=== PATIENT | male | born 1990 | race Caucasian/White ===

== ENCOUNTER 2017-10-10 09:31 | Emergency (ER) | payer OTHER, SELFPAY ==
[2017-10-10 09:32] VITALS: BP 111/71; PULSE 88; RESP 18; TEMP 37; O2SAT 98; BMI 32.1
--- NOTE | 2017-10-10 09:52 | CT_ITS ---
STUDY: CT ABDOMEN AND PELVIS WITHOUT CONTRAST REASON FOR EXAM: Male, 27 years old. Left flank pain. History of renal calculi. RADIATION DOSAGE (If Supplied By Facility): CTDIvol = ( 14.83 ) mGy, DLP = ( 803.98 ) mGycm TECHNIQUE: Transaxial images were obtained from the dome of the diaphragm to the symphysis pubis without oral contrast, and without intravenous contrast. Sagittal and coronal images were reconstructed. Individualized dose optimization techniques were used for this CT. COMPARISON: Comparison is made with prior study dated June 05, 2013. FINDINGS: The visualized lung bases are unremarkable. The visualized portions of the heart are within normal limits. Normal liver. Normal gallbladder and extrahepatic biliary system. Normal spleen. Normal pancreas. Normal bilateral adrenal glands. There is a 2 mm nonobstructive calculus in the upper pole of the right kidney. Punctate calcifications in the mid to lower pole of the right kidney. Punctate calcification in the upper pole calyx of the left kidney. There is no evidence of hydronephrosis. Normal visualized stomach. Normal small intestine. There are scattered colonic diverticula consistent with diverticulosis. The appendix is visualized and appears normal. Normal abdominal aorta. Normal inferior vena cava. Normal retroperitoneum. Normal urinary bladder. Stable small bilateral benign-appearing inguinal lymph nodes. Normal abdominal wall. Normal osseous structures. CT/Abdomen/Pelvis without Cont IMPRESSION: Bilateral small nonobstructive intrarenal calculi. Electronically Signed: Parminder Mejia MD at 10:33 EST Tel [phone], Service support ,
[2017-10-10] MEDS: Ondansetron 4 MG/2 ML Vial IV (10:07)
[2017-10-10] MEDS: Ketorolac 30 MG/ML Syringe IV (10:07)
[2017-10-10] MEDS: 0.9% Normal Saline 1,000 ML 999 ML IV (10:07)
[2017-10-10 10:12] LABS: Mucous, Urine 0 SEEN /hpf (<or=2+); White Blood Cells 0 SEEN /hpf (0-5)
--- NOTE | 2017-10-10 10:13 | ED.DCSUM_ITS ---
- ER Visit Summary Date of Service: 10/10/17 Chief Complaint: Left flank pain History of Present Illness: The patient is a 27 M 3 prior kidney stones and prior heroin abuse. Patient states he has been sober for 2 years. He started having left flank pain sudden onset around 3 AM this morning. He did urinate and noticed a small stone in the past. He is still having pain. Also associated nausea and vomiting. No fever. This is very similar to his prior kidney stone presentations. Physical Examination: Young male complaining of flank pain. Vital signs are stable afebrile. He does not look septic or toxic. H EENT exam is normal. Neck is nontender. Lungs are clear to auscultation bilaterally. Heart is regular rate and rhythm no murmur. Abdomen is soft and nontender. Normal bowel sounds no peritoneal signs. He is moving all 4 extremities. They are neurovascularly intact. Back exam is nontender. No CVA tenderness. Test Results: The flank without contrast shows bilateral renal stones but no acute ureteral calculi. No obstruction. I reviewed the film it was read by the radiologist. UA shows a small amount of blood but no signs of infection. When the patient did urinate a small stone was passed with the urine. Emergency Department Course and Treatment: Acute left flank pain with a history of kidney stones. Patient be treated with IV Toradol, IV fluids and Zofran. Because of his prior history of heroin abuse I am going to try to not use any type of narcotic. The patient I have already discussed that. Treatment Plan: Repeat exam he is doing much better at 1140. He will be discharged to home. Toradol for pain. Disposition: discharge Impression: Acute left flank pain secondary to acute left kidney stone now passed This note was generated with [employer] dictation software. It may contain incorrect words, spelling, and punctuation that were not noted in review of the chart prior to signing ED Disposition - Plan for ED Patient: Disposition: Home or Assisted Living Chief Complaint: Flank Pain Instructions: ED Stone Renal Passed Prescriptions: Ketorolac [Toradol] 10 mg PO Q4H #10 tab Referrals: Remington Coleman MD [Primary Care Provider] - As Needed Additional Instructions: Toradol or Motrin for pain. Do not use both. Fluids and rest. The ER if intractable pain, intractable vomiting or feeling worse.
[2017-10-10 10:18] LABS: Color, Urine Yellow (Yellow); Glucose, Dipstick Normal (Normal); Ketone-Dipstick Negative (Negative); Leukocyte Esterase-Dipstick 25 /ul (Negative); Nitrite-Dipstick Negative (Negative); Occult Blood-Urine 150 /ul (Negative); Protein-Dipstick Negative (Negative); Specific Gravity, Urine 1.015 (1.002-1.030); Urine Bilirubin Dipstick Negative (Negative); Urine Clarity Clear (Clear); Urine Urobilinogen 1 mg/dl (Normal)
[2017-10-10 10:31] LABS: Red Blood Cells-Urine 5-10 SEEN /hpf (0-5); Squamous Epithelial Cells - UA 0-5 SEEN /hpf (0-5)
[2017-10-10 10:33] LABS: Bacteria RARE /hpf (None Seen)
--- NOTE | 2017-10-10 11:46 | ED.DEP ---
ED Disposition - Plan for ED Patient: Disposition: Home or Assisted Living Chief Complaint: Flank Pain Instructions: ED Stone Renal Passed Prescriptions: Ketorolac [Toradol] 10 mg PO Q4H #10 tab Referrals: Remington Coleman MD [Primary Care Provider] - As Needed Additional Instructions: Toradol or Motrin for pain. Do not use both. Fluids and rest. The ER if intractable pain, intractable vomiting or feeling worse.
== END 2017-10-10 11:59 | disposition home or self-care (01) ==
PROVIDERS: Emergency Provider Emergency Medicine; Family Provider Family Medicine; PCP Family Medicine
DX: N20.0 Calculus of kidney (principal); R10.9 Unspecified abdominal pain; Z87.442 Personal history of urinary calculi; F11.11 Opioid abuse, in remission; Z72.0 Tobacco use
CPT/HCPCS: 74176; 81001; 96361; 96374; 96375; 99284; J7030; A4216; J2405

== ENCOUNTER 2017-11-05 02:46 | Emergency (ER) | payer OTHER, SELFPAY ==
[2017-11-05 02:47] VITALS: BP 136/69; PULSE 88; RESP 16; TEMP 36.8; O2SAT 96; BMI 31.8
[2017-11-05] MEDS: Ketorolac 30 MG/ML Syringe IV (03:23)
[2017-11-05] MEDS: Ondansetron 4 MG/2 ML Vial IV (03:23)
--- NOTE | 2017-11-05 04:24 | ED.DCSUM_ITS ---
- ER Visit Summary Date of Service: 11/05/17 Chief Complaint: Facial swelling History of Present Illness: The patient is a [address] Brink [facility]. He reports that he has swelling to the left side of his face that began months ago. It increased today after he scores the area and felt a crunch. Complains of a throbbing pain is 10 out of 10 severity. Is worsened by eating. It is unrelieved by ibuprofen. Patient reports that he finished penicillin 12 days ago. He began Keflex 4 days ago. This does not seem to be helping. He has had subjective fever and chills. Physical Examination: Vitals: Stable. Afebrile. Mouth: No trismus. No edema of the floor of the mouth. Widespread dental decay. No pain with percussion of his teeth. The soft tissue swelling is really more in the area of the parotid duct. I am unable to express any saliva from Stensen's duct. General: A&O x 3. NAD. Cardiovascular exam: Regular rate and rhythm, no murmur, rub or gallop. Respiratory exam: Clear to auscultation bilaterally. No wheezes or stridor. Abdominal exam: Soft, nontender, nondistended, normal bowel sounds. No peritoneal signs. Extremity: No clubbing, cyanosis, or edema. Emergency Department Course and Treatment: Patient had an IV placed. Is given dose of clindamycin and morphine IV. I had a prolonged discussion about this and that I do not think that attempting to drain this is in his best interest. I suspect that it is more of a parotid duct stone than an abscess. Treatment Plan: Patient will be discharged instructions to take the clindamycin he was previously prescribed. 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 Instructed to use Tylenol and ibuprofen for pain. Use lemon drops to help with possible obstruction of his parotid duct. Follow-up Dr. Haney in 3-5 days if not improving. Return to the emergency department for any worsening symptoms. Disposition: To home in improved and stable condition. Impression: 1. Parotitis on the left. This note was generated with [employer] software. It may contain incorrect words, spelling, and punctuation that were not noted in review of the chart prior to signing ED Disposition - Plan for ED Patient: Disposition: Home or Assisted Living Chief Complaint: Dental Instructions: ED Sublingual Gland Obstruction Referrals: Remington Haney MD [STAFF PHYSICIAN] - 3-5 Days if not improving
[2017-11-05 04:39] VITALS: BP 129/67; PULSE 81; RESP 16; O2SAT 97
== END 2017-11-05 04:42 | disposition home or self-care (01) ==
PROVIDERS: Emergency Provider Emergency Medicine; Family Provider Family Medicine; PCP Family Medicine
DX: K11.20 Sialoadenitis, unspecified (principal); K02.9 Dental caries, unspecified; Z72.0 Tobacco use
CPT/HCPCS: 96365; 96375; 99283; J7030; A4216; J2405

== ENCOUNTER → 2017-11-11 14:17 | Outpatient (CLI) | payer OTHER, SELFPAY ==
[2017-11-11 15:36] LABS: Absolute Lymphocyte Count 2.63 X10^3/ul (0.83-4.51); Basophil# 0.02 X10^3/uL; Basophil% 0.2 % (0-1); Eosinophil# 0.17 X10^3/uL; Eosinophils% 1.7 % (0-5); Hematocrit 48.2 % (40-54); Hemoglobin 16.7 g/dl (13.0-16.5); Lymphocyte # 2.63 X10^3/ul (4.0); Mean Corp Hgb Conc 34.6 g/gl (32-36); Mean Corpuscular Hgb 30.8 pg (27.0-32.0); Mean Corpuscular Volume 88.8 fL (80-94); Mean Platelet Vol. 11.9 fl (6.2-12.0); Monocyte% 9.2 % (0-10); Neutrophil % 61.7 % (47-70); Platelet Count 216 K/mm3 (150-450); RBC Distribution Width CV 12.4 % (11.6-14.6); RBC Distribution Width SD 40.6 fl (35.1-43.9); Red Blood Count 5.43 M/mm3 (4.6-6.2); White Blood Count 9.7 K/mm3 (4.4-11.0)
[2017-11-11 15:43] LABS: POSITIVE COUNT NO; POSITIVE DIFFERENTIAL NO; POSITIVE MORPHOLOGY NO
[2017-11-11 15:58] LABS: ALB/GLOB Ratio 1.1 RATIO (0.9-2.4); AST(SGOT) 82 U/L (15-37); Alanine Aminotransfer ALT/SGPT 186 U/L (16-61); Albumin, Serum 4.4 g/dL (3.2-5.0); Alkaline Phosphatase 104 U/L (45-117); Amylase 31 U/L (25-115); Anion Gap 9 (5-15); BUN 12 mg/dL (7-18); BUN/Creat Ratio 14.3 RATIO (10-20); CRP < 2.90 mg/L (0.0-3.0); Calcium,Total 9.1 mg/dL (8.5-10.1); Chloride 102 mmol/L (98-107); Creatinine, Serum 0.84 mg/dL (0.70-1.30); EST Glomerular Filtration Rate 117 mL/min (>60); Est Glom Filt Rate - Afr Amer 141 mL/min (>60); Glucose 79 mg/dL (74-106); Lipase 86 U/L (73-393); Potassium 3.5 mmol/L (3.5-5.1); Protein, Total 8.4 g/dL (6.4-8.2); Sodium Level 137 mmol/L (136-145)
[2017-11-11 16:39] LABS: Erythrocyte Sedimentation Rate 17 mm/hr (0-15)
== END ==
PROVIDERS: Family Provider Family Medicine; PCP Family Medicine; Visit Provider Family Medicine
DX: R11.2 Nausea with vomiting, unspecified (principal)
CPT/HCPCS: 36415; 80053; 82150; 83690; 85025; 85652; 86140

== ENCOUNTER → 2018-02-23 14:25 | Outpatient (CLI) | payer OTHER, SELFPAY ==
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
== END ==
PROVIDERS: Family Provider Family Medicine; PCP Family Medicine; Visit Provider Family Medicine
DX: M79.671 Pain in right foot (principal)
CPT/HCPCS: 73630

== ENCOUNTER 2018-05-21 19:50 | Emergency (ER) | payer OTHER, SELFPAY ==
[2018-05-21 19:51] VITALS: BP 114/68; PULSE 108; RESP 20; TEMP 36.7; O2SAT 96; BMI 29.2
--- NOTE | 2018-05-21 20:20 | EKG12_ITS ---
Test Reason : Blood Pressure : / mmHG Vent. Rate : 089 BPM Atrial Rate : 089 BPM P-R Int : 138 ms QRS Dur : 076 ms QT Int : 348 ms P-R-T Axes : 058 -04 034 degrees QTc Int : 423 ms Normal sinus rhythm Possible Left atrial enlargement Borderline ECG Confirmed by BERTO CUMMINS, KAMRAN ([id number]), editor news MARI DIA ([id number]) on 05/27/2018 9:18:48 AM Referred By: ZACK Confirmed By:KAMRAN THOMSON MD
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
[2018-05-21 20:48] LABS: Absolute Lymphocyte Count 1.42 X10^3/ul (0.83-4.51); Absolute Neutrophil Count 5.5 X10^3/uL (2.0-7.7); Basophil# 0.02 X10^3/uL; Basophil% 0.3 % (0-1); Eosinophils% 1.3 % (0-5); Hematocrit 44.3 % (40-54); Hemoglobin 15.2 g/dl (13.0-16.5); Lymphocyte # 1.42 X10^3/ul (4.0); Lymphocyte % 18.9 % (19-41); Mean Corp Hgb Conc 34.3 g/gl (32-36); Mean Corpuscular Hgb 30.5 pg (27.0-32.0); Mean Corpuscular Volume 88.8 fL (80-94); Mean Platelet Vol. 10.9 fl (6.2-12.0); Monocyte% 6.6 % (0-10); Neutrophil # 5.47 X10^3/uL (2.7-7.7); Neutrophil % 72.8 % (47-70); Platelet Count 217 K/mm3 (150-450); RBC Distribution Width CV 12.5 % (11.6-14.6); RBC Distribution Width SD 39.9 fl (35.1-43.9); Red Blood Count 4.99 M/mm3 (4.6-6.2); White Blood Count 7.5 K/mm3 (4.4-11.0)
[2018-05-21 20:49] LABS: POSITIVE COUNT NO; POSITIVE DIFFERENTIAL NO; POSITIVE MORPHOLOGY NO
[2018-05-21 21:10] LABS: Anion Gap 9 (5-15); BUN 6 mg/dL (7-18); BUN/Creat Ratio 6.9 RATIO (10-20); Calcium,Total 9.1 mg/dL (8.5-10.1); Chloride 108 mmol/L (98-107); Creatinine, Serum 0.87 mg/dL (0.70-1.30); EST Glomerular Filtration Rate 113 mL/min (>60); Est Glom Filt Rate - Afr Amer 136 mL/min (>60); Estimated Creatinine Clearance 124.48 ml/min; Glucose 104 mg/dL (74-106); Potassium 3.9 mmol/L (3.5-5.1); Sodium Level 140 mmol/L (136-145)
[2018-05-21 21:25] VITALS: BP 111/90; PULSE 80; RESP 21; O2SAT 98
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
[2018-05-21 22:21] VITALS: BP 117/63; PULSE 83; RESP 16; O2SAT 99
== END 2018-05-21 22:21 | disposition home or self-care (01) ==
PROVIDERS: Emergency Provider Emergency Medicine; Family Provider Family Medicine; PCP Family Medicine
DX: S20.219A Contusion of unspecified front wall of thorax, initial encounter (principal); Z72.0 Tobacco use; V43.52XA Car driver injured in collision with other type car in traffic accident, initial encounter; Y93.I9 Activity, other involving external motion; Y92.410 Unspecified street and highway as the place of occurrence of the external cause; Y99.9 Unspecified external cause status
CPT/HCPCS: 71260; 74177; 80048; 84484; 85025; 93005; 99283; Q9967; A4216

== ENCOUNTER → 2018-06-18 16:01 | Outpatient (CLI) | payer OTHER, SELFPAY ==
[2018-06-18 17:38] LABS: Absolute Lymphocyte Count 1.66 X10^3/ul (0.83-4.51); Absolute Neutrophil Count 4.7 X10^3/uL (2.0-7.7); Basophil# 0.02 X10^3/uL; Basophil% 0.3 % (0-1); Eosinophil# 0.18 X10^3/uL; Eosinophils% 2.5 % (0-5); Hematocrit 44.4 % (40-54); Lymphocyte # 1.66 X10^3/ul (4.0); Lymphocyte % 23.1 % (19-41); Mean Corp Hgb Conc 33.8 g/gl (32-36); Mean Corpuscular Hgb 30.5 pg (27.0-32.0); Mean Corpuscular Volume 90.4 fL (80-94); Mean Platelet Vol. 12.3 fl (6.2-12.0); Monocyte# 0.63 X10^3/uL; Monocyte% 8.8 % (0-10); Neutrophil # 4.69 X10^3/uL (2.7-7.7); Neutrophil % 65.2 % (47-70); Platelet Count 202 K/mm3 (150-450); RBC Distribution Width CV 12.4 % (11.6-14.6); RBC Distribution Width SD 40.4 fl (35.1-43.9); Red Blood Count 4.91 M/mm3 (4.6-6.2); White Blood Count 7.2 K/mm3 (4.4-11.0)
[2018-06-18 17:43] LABS: POSITIVE COUNT NO; POSITIVE DIFFERENTIAL NO; POSITIVE MORPHOLOGY NO
[2018-06-18 18:08] LABS: ALB/GLOB Ratio 0.9 RATIO (0.9-2.4); AST(SGOT) 68 U/L (15-37); Alanine Aminotransfer ALT/SGPT 150 U/L (16-61); Albumin, Serum 3.8 g/dL (3.2-5.0); Alkaline Phosphatase 88 U/L (45-117); Anion Gap 6 (5-15); BUN 6 mg/dL (7-18); BUN/Creat Ratio 6.9 RATIO (10-20); Calcium,Total 9.1 mg/dL (8.5-10.1); Chloride 106 mmol/L (98-107); Creatinine, Serum 0.87 mg/dL (0.70-1.30); EST Glomerular Filtration Rate 112 mL/min (>60); Est Glom Filt Rate - Afr Amer 136 mL/min (>60); Globulin 4.2 g/dL (2.2-4.2); Glucose 95 mg/dL (74-106); Potassium 3.6 mmol/L (3.5-5.1); Sodium Level 138 mmol/L (136-145)
[2018-06-22 20:07] LABS: HCV Quant. RNA PCR 69000 IU/mL (.)
[2018-06-23 14:51] LABS: HCV log 10 4.839 (.)
== END ==
PROVIDERS: Family Provider Family Medicine; PCP Family Medicine; Visit Provider Family Medicine
DX: K52.9 Noninfective gastroenteritis and colitis, unspecified (principal)
CPT/HCPCS: 36415; 80053; 85025; 87522

== ENCOUNTER 2018-07-12 20:10 | Inpatient (IN) | payer OTHER, SELFPAY ==
[2018-07-12 20:11] VITALS: BP 112/74; PULSE 91; RESP 16; TEMP 36.3; O2SAT 96; BMI 27.1
--- NOTE | 2018-07-12 21:00 | ED.VISSUMM ---
- ER Visit Summary Date of Service: 07/12/18 Chief Complaint: Wants detox History of Present Illness: The patient is a 27 M presenting stating that he wants detox. He uses fentanyl and heroin IV. He uses 1/2-1 g/day. His last detox was in 2014. He states he was sober for 2-1/2 years. He relapsed in May 2018. He denies alcohol use. He smokes cigarettes. He has a history of hep C. He has had nausea vomiting. Last use was 5 hours ago. Physical Examination: Vitals are stable. Patient is afebrile. Alert no acute distress. HEENT exam is unremarkable. Neck is supple. Lungs are clear and equal bilaterally. Heart is regular rate and rhythm. Abdomen is soft nontender nondistended. Extremities are unremarkable. Skin is warm and dry. No focal neurologic deficit. Remainder of exam is unremarkable. Emergency Department Course and Treatment: CINA score is 13. CBC shows white count 11.6. Chemistries unremarkable. ALT 119. AST 56. Lipase 57. INR 1.0. Urine is contaminated with 5-10 epithelial cells. Tox screen shows opiates, amphetamine, cocaine. Alcohol is negative. Discussed with the hospitalist for admission. Disposition: Admission Impression: Opiate dependence This note was generated with [employer] dictation software. It may contain incorrect words, spelling, and punctuation that were not noted in review of the chart prior to signing ED Disposition - Plan for ED Patient: Chief Complaint: Substance Abuse Referrals: Remington Coleman MD [Primary Care Provider] -
[2018-07-12 21:36] LABS: Basophil# 0.04 X10^3/uL; Basophil% 0.3 % (0-1); Eosinophils% 1.7 % (0-5); Hematocrit 46.1 % (40-54); Hemoglobin 15.4 g/dl (13.0-16.5); Lymphocyte % 14.6 % (19-41); Mean Corp Hgb Conc 33.4 g/gl (32-36); Mean Corpuscular Hgb 30.5 pg (27.0-32.0); Mean Corpuscular Volume 91.3 fL (80-94); Mean Platelet Vol. 11.7 fl (6.2-12.0); Monocyte# 0.63 X10^3/uL; Monocyte% 5.4 % (0-10); Neutrophil # 9.03 X10^3/uL (2.7-7.7); Neutrophil % 77.8 % (47-70); POSITIVE COUNT NO; POSITIVE DIFFERENTIAL NO; POSITIVE MORPHOLOGY NO; Platelet Count 224 K/mm3 (150-450); RBC Distribution Width CV 12.6 % (11.6-14.6); RBC Distribution Width SD 41.4 fl (35.1-43.9); Red Blood Count 5.05 M/mm3 (4.6-6.2); White Blood Count 11.6 K/mm3 (4.4-11.0)
[2018-07-12 21:41] LABS: Prothrombin Time (Protime)PT. 13.1 SECONDS (11.7-14.9)
[2018-07-12 21:48] LABS: Color, Urine Yellow (Yellow); Glucose, Dipstick Normal (Normal); Ketone-Dipstick Negative (Negative); Leukocyte Esterase-Dipstick 25 /ul (Negative); Nitrite-Dipstick Negative (Negative); Occult Blood-Urine Negative /ul (Negative); Protein-Dipstick 15 mg/dl (Negative); Urine Bilirubin Dipstick Negative (Negative); Urine Clarity Clear (Clear); Urine Urobilinogen 1 mg/dl (Normal)
[2018-07-12 21:51] LABS: AST(SGOT) 56 U/L (15-37); Alanine Aminotransfer ALT/SGPT 119 U/L (16-61); Albumin, Serum 3.8 g/dL (3.2-5.0); Alkaline Phosphatase 84 U/L (45-117); Anion Gap 6 (5-15); BUN 11 mg/dL (7-18); Bacteria 1+ /hpf (None Seen); Calcium,Total 8.8 mg/dL (8.5-10.1); Chloride 104 mmol/L (98-107); Creatinine, Serum 0.79 mg/dL (0.70-1.30); EST Glomerular Filtration Rate 126 mL/min (>60); Est Glom Filt Rate - Afr Amer 152 mL/min (>60); Estimated Creatinine Clearance 132.48 ml/min; Glucose 112 mg/dL (74-106); Lipase 57 U/L (73-393); Mucous, Urine 2+ /hpf (<or=2+); Potassium 3.9 mmol/L (3.5-5.1); Protein, Total 7.8 g/dL (6.4-8.2); Red Blood Cells-Urine 0-5 SEEN /hpf (0-5); Sodium Level 138 mmol/L (136-145); Squamous Epithelial Cells - UA 5-10 SEEN /hpf (0-5); White Blood Cells 5-10 SEEN /hpf (0-5)
[2018-07-12 21:53] LABS: Amphetamine Urine VISTA POSITIVE (<1000 ng/mL); Barbiturate Urine VISTA NEGATIVE (< 200 ng/mL); Benzodiazepine Urine VISTA NEGATIVE (< 200 ng/mL); Cocaine Urine VISTA POSITIVE (< 300 ng/mL); Ecstacy Urine VISTA NEGATIVE (< 500 ng/mL); Methadone Urine VISTA NEGATIVE (< 300 ng/mL); PCP Urine VISTA NEGATIVE (< 25 ng/mL); THC Urine VISTA NEGATIVE (< 50 ng/mL); Vista UDS pH Range 5
[2018-07-12 22:04] LABS: Alcohol, Blood (Medical)-Serum < 3.0 mg/dL
--- NOTE | 2018-07-12 22:04 | HP.PCM_ITS ---
Problem List (1) Opioid withdrawal delirium, acute, hyperactive Status: Acute (2) Cocaine abuse Status: Acute (3) Nicotine dependence Status: Acute (4) Benzodiazepine use Status: Acute History of Present Illness Date of Admission: 07/12/18 Chief Complaint: Polysubstance use and withdrawal The patient is a 27 year old M with history of polysubstance use and dependence including IV heroin, fentanyl, he snorts cocaine, smokes cigarette and occasional Xanax came to ER for withdrawal symptoms related to opioids. Patient having mild tremors, skin flush, sensation of crawling under her skin, abdominal cramps, anxiety and restlessness. Patient had left antecubital abscess I and D done in 2012. Patient claims that it was done by Dr. Schmitz. Patient had multiple ER visits and also had right antecubital abscess for which she was seen in ER April 2014. He denies history of severe sepsis, septic shock or infective endocarditis. He usually has half to 1 g IV heroin and mixed with his fentanyl, last use was 5 hours ago. JAE a score in ER 11. Opioid use is started at the age of 15 with oxycodone which progressed to IV heroin use at the age of 18. He was sober for 2 and half years and then relapsed in May 2018. He also uses a speedball. He snorts cocaine, last used today. He also uses Xanax 1-2 tablets of 1 mg occasionally, last use was about 5-6 days ago. He consistently smokes cigarettes 1-1-1/2 pack daily since age of 13. [] Past Medical History Past Medical History (Chronic Problems): Chronic Problems Polysubstance abuse (Chronic) Allergies No Known Allergies Allergy (Verified 07/12/18 20:13) Home Medications: Ambulatory Orders Medication Instructions Recorded NK 07/12/18 Surgical History: T+A Smoking Status: Current every day smoker Review of Systems Constitutional: Denies: Chills, Fever, Weight Change Eyes: Denies: Blurred vision, Double vision HEENT: Denies: Head Aches, Sinus Congestion, Sinus Drainage Cardiovascular: Denies: Chest Pain, Palpitations Respiratory: Denies: Cough, Shortness of breath at rest, Sputum production Gastrointestinal: Reports: Abdominal Pain, Nausea. Denies: Vomiting Genitourinary: Denies: Dysuria, Frequency, Hematuria, Hesitancy, Incontinence, Nocturia, Retention, Urgency Musculoskeletal: Denies: Joint Pain, Joint Tenderness Skin: Denies: Rash, Wounds Neurological: Denies: Numbness, Tingling, Focal weakness Psychiatric: Reports: Anxiety, Depression. Denies: Homicidal Ideations, Suici dc Ideations Hematologic/ Lymphatic: Denies: Easy Bruising, Easy Bleeding VTE Information - Inpt Only VTE Present on Admission: No VTE Mechan Device Prophylaxis: None VTE Pharm Prophylaxis ordered?: No Reason prophylaxis not ordered:: Procedure Not Indicated - Low risk Patient Problems: Active and Suspected Problems Opioid withdrawal delirium, acute, hyperactive (Acute) Cocaine abuse (Acute) Nicotine dependence (Acute) Benzodiazepine use (Acute) - Physical Exam General: Alert, Oriented x3, Cooperative HEENT: Atraumatic, PERRLA, EOMI, Normocephalic Neck: Supple, No JVD, Negative Carotid Bruits Lungs: Clear to auscultation, Normal air movement Cardiovascular: Regular rate, Regular Rhythm, Normal S1, Normal S2, No murmurs Abdomen: Bowel Sounds Present, Soft, Non Tender, Non-Distended Extremities: No edema, Capillary Refill Less than 3 Seconds, - - Scar eric of left antecubital region of previous incision and drainage Skin: No rashes, No breakdown, - - A skin track house present in both upper extremities Musculoskeletal: No Tenderness to Palpation of Joints or Extremities Neurological: Cranial nerves II-XII grossly intact, Deep Tendon Reflexes 2+/4 and Symmetrical, Neuro grossly intact, Motor Exam 5/5 strength throughout Psych/Mental Status: Anxious, Restless Vital Signs Temp Pulse Resp BP Pulse Ox 97.4 F L 91 16 112/74 96 07/12/18 20:11 07/12/18 20:11 07/12/18 20:11 07/12/18 20:11 07/12/18 20:11 Oxygen Delivery Method Room Air Weight: 172 lb 13.478 oz Body Mass Index (BMI) 27.1 Laboratory Tests Past 24 Hrs 07/12/18 07/12/18 07/12/18 21:25 21:25 21:25 WBC 11.6 H RBC 5.05 Hgb 15.4 Hct 46.1 MCV 91.3 MCH 30.5 MCHC 33.4 RDW 12.6 RDW Differential 41.4 Plt Count 224 MPV 11.7 Immature Gran % (Auto) 0.200 Neut % (Auto) 77.8 H Lymph % (Auto) 14.6 L [place] % (Auto) 5.4 Eos % (Auto) 1.7 Baso % (Auto) 0.3 Absolute Neuts (auto) 9.0 H Absolute Lymphs (auto) 1.70 Total Counted Not Reportable PT 13.1 INR 1.0 Sodium 138 Potassium 3.9 Chloride 104 Carbon Dioxide 28.0 Anion Gap 6 BUN 11 Creatinine 0.79 Estim Creat Clear Calc 132.48 Est GFR (MDRD) Af Amer 152 Est GFR (MDRD) Non-Af 126 BUN/Creatinine Ratio 14.0 Glucose 112 H Calcium 8.8 Total Bilirubin 0.50 AST 56 H ALT 119 H Alkaline Phosphatase 84 Total Protein 7.8 Albumin 3.8 Globulin 4.0 Albumin/Globulin Ratio 1.0 Lipase 57 L Urine Color Urine Clarity Urine pH Ur Specific [place] Urine Protein Urine Glucose (UA) Urine Ketones Urine Occult Blood Urine Nitrite Urine Bilirubin Urine Urobilinogen Ur Leukocyte Esterase Urine RBC Urine WBC Ur Squamous Epith Cells Urine Bacteria Urine Mucus Urine Opiates Screen Urine Methadone Screen Ur Barbiturates Screen Ur Phencyclidine Scrn Ur Amphetamines Screen U Methamphetamin-MDMA U Benzodiazepines Scrn Urine Cocaine Screen U Cannabinoids Screen Ur Drug Screen Comment Ethyl Alcohol 07/12/18 07/12/18 07/12/18 21:25 21:25 21:25 WBC RBC Hgb Hct MCV MCH MCHC RDW RDW Differential Plt Count MPV Immature Gran % (Auto) Neut % (Auto) Lymph % (Auto) [place] % (Auto) Eos % (Auto) Baso % (Auto) Absolute Neuts (auto) Absolute Lymphs (auto) Total Counted PT INR Sodium Potassium Chloride Carbon Dioxide Anion Gap BUN Creatinine Estim Creat Clear Calc Est GFR (MDRD) Af Amer Est GFR (MDRD) Non-Af BUN/Creatinine Ratio Glucose Calcium Total Bilirubin AST ALT Alkaline Phosphatase Total Protein Albumin Globulin Albumin/Globulin Ratio Lipase Urine Color Yellow Urine Clarity Clear Urine pH 6.0 Ur Specific [place] 1.020 Urine Protein 15 H Urine Glucose (UA) Normal Urine Ketones Negative Urine Occult Blood Negative Urine Nitrite Negative Urine Bilirubin Negative Urine Urobilinogen 1 H Ur Leukocyte Esterase 25 H Urine RBC 0-5 SEEN Urine WBC 5-10 SEEN Ur Squamous Epith Cells 5-10 SEEN Urine Bacteria 1+ Urine Mucus 2+ Urine Opiates Screen POSITIVE H Urine Methadone Screen NEGATIVE Ur Barbiturates Screen NEGATIVE Ur Phencyclidine Scrn NEGATIVE Ur Amphetamines Screen POSITIVE H U Methamphetamin-MDMA NEGATIVE U Benzodiazepines Scrn NEGATIVE Urine Cocaine Screen POSITIVE H U Cannabinoids Screen NEGATIVE Ur Drug Screen Comment Ethyl Alcohol Pending Assessment/Plan All Active Problems Opioid withdrawal delirium, acute, hyperactive (Acute) Cocaine abuse (Acute) Nicotine dependence (Acute) Benzodiazepine use (Acute) The patient is a 27 year old M with history of polysubstance use and dependence including IV heroin, fentanyl, he snorts cocaine, smokes cigarette and occasional Xanax came to ER for withdrawal symptoms related to opioids. Patient having mild tremors, skin flush, sensation of crawling under her skin, abdominal cramps, anxiety and restlessness. Patient had left antecubital abscess I and D done in 2012. Patient claims that it was done by Dr. Schmitz. Patient had multiple ER visits and also had right antecubital abscess for which she was seen in ER April 2014. He denies history of severe sepsis, septic shock or infective endocarditis. He usually has half to 1 g IV heroin and mixed with his fentanyl, last use was 5 hours ago. JAE a score in ER 11. Opioid use is started at the age of 15 with oxycodone which progressed to IV heroin use at the age of 18. He was sober for 2 and half years and then relapsed in May 2018. He also uses a speedball. He snorts cocaine, last used today. He also uses Xanax 1-2 tablets of 1 mg occasionally, last use was about 5-6 days ago. He consistently smokes cigarettes 1-1-1/2 pack daily since age of 13. 1. Opioids use with IV heroin, fentanyl, oxycodone with dependence and acute withdrawal: Patient is being admitted on regular [facility] floor for medical stabilization of opioid withdrawal symptoms. Patient started on Librium and buprenorphine taper later. Order set for medical stabilization was put in. 2. Crack cocaine use and dependence: Patient was counseled to stop cocaine use. 3. Occasional use of benzodiazepines use and dependence: Patient does not seem to be in benzodiazepine withdrawal now but needs to be watched for. 4. Pyuria in U/A with suspicion of UTI: Patient does not have lower urinary tract symptoms including burning micturition, increased frequency, urgency, obstructive symptoms. Patient had history of stone and claims he passed it about 3-4 months ago. UA shows WBC 5-10 cells, bacteria 1+, nitrite negative. Empirically started on IV ceftriaxone. Urine culture ordered. 5. chronic hepatitis C: Patient used to follow with ID Dr. horn in 2014. Hepatitis C genotype 2, HCV RNA quantitative 74,760 IU. Needs further evaluation and management as an outpatient. 6. DVT prophylaxis: Low risk no prophylaxis indicated. Early ambulation encouraged Code Visit Inpatient E&M: 70567 Init Hosp L3
[2018-07-12 23:16] VITALS: BMI 27.1
[2018-07-12 23:39] VITALS: BP 105/61; PULSE 83; RESP 16; TEMP 36.7
[2018-07-12] MEDS: chlordiazePOXIDE 25 MG Capsule PO (23:42)
[2018-07-12] MEDS: Ceftriaxone 1 GM/50 ML BAG IV (23:43)
[2018-07-13 03:28] VITALS: BP 133/67; PULSE 97; RESP 16; TEMP 37
[2018-07-13] MEDS: chlordiazePOXIDE 25 MG Capsule PO ×4 (03:33→18:18)
[2018-07-13] MEDS: Dicyclomine 10 MG Capsule 20 MG PO ×3 (03:33→21:41)
[2018-07-13] MEDS: cloNIDine HCl 0.1 MG Tablet PO ×3 (03:33→21:41)
[2018-07-13 06:45] VITALS: BP 95/56; PULSE 56; RESP 16; TEMP 36.8
[2018-07-13] MEDS: Buprenorphine HCl 2 MG TAB.SUBL SL ×3 (06:47→21:35)
--- NOTE | 2018-07-13 09:12 | PCM.PROGNOTE ---
Patient Problems: Active and Suspected Problems Opioid withdrawal delirium, acute, hyperactive (Acute) Cocaine abuse (Acute) Nicotine dependence (Acute) Benzodiazepine use (Acute) Subjective: Chief complaint: Follow-up after admission for acute opioid withdrawal for medical stabilization. Patient seen and examined. No acute events overnight. This morning, he mentioned that his level of anxiety and tremors are getting better. He has no more abdominal cramps. He denied nausea, vomiting or diarrhea. His vital signs are stable. - Physical Exam General: Alert, Oriented x3, Cooperative, No apparent distress HEENT: Atraumatic, PERRLA, EOMI, Normocephalic Oral: Moist Mucosa, No Gingival or Mucosal Lesions/ Ulcerations Neck: Supple, No JVD, Negative Carotid Bruits, Trachea Midline, Thyroid Normal Size and Texture Lungs: Clear to auscultation, Normal air movement, No rhonchi, No wheeze, No rales Cardiovascular: Regular rate, Regular Rhythm, Normal S1, Normal S2, PMI Normal Abdomen: Bowel Sounds Present, Soft, Non Tender, Non-Distended, No Hepato-splenomegaly Extremities: No clubbing, No cyanosis, No edema Skin: No rashes, No breakdown Lymphatic: No Cervical, Supraclavicular, or Inguinal Adenopathy Neurological: Cranial nerves II-XII grossly intact, Motor Exam 5/5 strength throughout Psych/Mental Status: Normal Affect, Appropriate, Alert and oriented to time, place, person, mood and affect Vital Signs Temp Pulse Resp BP Pulse Ox 98.2 F 56 L 16 95/56 L 96 07/13/18 06:45 07/13/18 06:45 07/13/18 06:45 07/13/18 06:45 07/12/18 20:11 Oxygen Delivery Method Room Air Weight: 172 lb 13.478 oz Body Mass Index (BMI) 27.1 Intake and Output for Last 24 Hours 07/11/18 07/12/18 07/13/18 23:59 23:59 23:59 Intake Total 350 / 350 Balance 350 / 350 Laboratory Tests Past 24 Hrs 07/12/18 07/12/18 07/12/18 21:25 21:25 21:25 WBC 11.6 H RBC 5.05 Hgb 15.4 Hct 46.1 MCV 91.3 MCH 30.5 MCHC 33.4 RDW 12.6 RDW Differential 41.4 Plt Count 224 MPV 11.7 Immature Gran % (Auto) 0.200 Neut % (Auto) 77.8 H Lymph % (Auto) 14.6 L [place] % (Auto) 5.4 Eos % (Auto) 1.7 Baso % (Auto) 0.3 Absolute Neuts (auto) 9.0 H Absolute Lymphs (auto) 1.70 Total Counted Not Reportable PT 13.1 INR 1.0 Sodium 138 Potassium 3.9 Chloride 104 Carbon Dioxide 28.0 Anion Gap 6 BUN 11 Creatinine 0.79 Estim Creat Clear Calc 132.48 Est GFR (MDRD) Af Amer 152 Est GFR (MDRD) Non-Af 126 BUN/Creatinine Ratio 14.0 Glucose 112 H Calcium 8.8 Total Bilirubin 0.50 AST 56 H ALT 119 H Alkaline Phosphatase 84 Total Protein 7.8 Albumin 3.8 Globulin 4.0 Albumin/Globulin Ratio 1.0 Lipase 57 L Urine Color Urine Clarity Urine pH Ur Specific [place] Urine Protein Urine Glucose (UA) Urine Ketones Urine Occult Blood Urine Nitrite Urine Bilirubin Urine Urobilinogen Ur Leukocyte Esterase Urine RBC Urine WBC Ur Squamous Epith Cells Urine Bacteria Urine Mucus Urine Opiates Screen Urine Methadone Screen Ur Barbiturates Screen Ur Phencyclidine Scrn Ur Amphetamines Screen U Methamphetamin-MDMA U Benzodiazepines Scrn Urine Cocaine Screen U Cannabinoids Screen Ur Drug Screen Comment Ethyl Alcohol 07/12/18 07/12/18 07/12/18 21:25 21:25 21:25 WBC RBC Hgb Hct MCV MCH MCHC RDW RDW Differential Plt Count MPV Immature Gran % (Auto) Neut % (Auto) Lymph % (Auto) [place] % (Auto) Eos % (Auto) Baso % (Auto) Absolute Neuts (auto) Absolute Lymphs (auto) Total Counted PT INR Sodium Potassium Chloride Carbon Dioxide Anion Gap BUN Creatinine Estim Creat Clear Calc Est GFR (MDRD) Af Amer Est GFR (MDRD) Non-Af BUN/Creatinine Ratio Glucose Calcium Total Bilirubin AST ALT Alkaline Phosphatase Total Protein Albumin Globulin Albumin/Globulin Ratio Lipase Urine Color Yellow Urine Clarity Clear Urine pH 6.0 Ur Specific [place] 1.020 Urine Protein 15 H Urine Glucose (UA) Normal Urine Ketones Negative Urine Occult Blood Negative Urine Nitrite Negative Urine Bilirubin Negative Urine Urobilinogen 1 H Ur Leukocyte Esterase 25 H Urine RBC 0-5 SEEN Urine WBC 5-10 SEEN Ur Squamous Epith Cells 5-10 SEEN Urine Bacteria 1+ Urine Mucus 2+ Urine Opiates Screen POSITIVE H Urine Methadone Screen NEGATIVE Ur Barbiturates Screen NEGATIVE Ur Phencyclidine Scrn NEGATIVE Ur Amphetamines Screen POSITIVE H U Methamphetamin-MDMA NEGATIVE U Benzodiazepines Scrn NEGATIVE Urine Cocaine Screen POSITIVE H U Cannabinoids Screen NEGATIVE Ur Drug Screen Comment Ethyl Alcohol < 3.0 Medical Necessity - Tobacco Use Smoking Status: Current every day smoker Tobacco Use: Cigarettes Assessment/Plan All Active Problems Opioid withdrawal delirium, acute, hyperactive (Acute) Cocaine abuse (Acute) Nicotine dependence (Acute) Benzodiazepine use (Acute) This is a 27 years old male patient presented to the emergency room requesting admission for acute opioid withdrawal for medical stabilization. #1 acute opiate withdrawal: Patient has been using different drugs including IV heroin, fentanyl, snorts cocaine and he uses occasional Xanax as well. He is on [facility] protocol with tapering course of Subutex, as needed Librium, Catapres, Bentyl, Vistaril, methocarbamol, Mirapex, trazodone and Zofran. His vital signs are stable. His routine blood work was unremarkable. His urine drug screen was positive for opioids, amphetamines and cocaine. Blood alcohol level was less than 3. She is supported some improvement in symptoms. Plan to continue same treatment. #2 probable acute cystitis: Started empirically on IV Rocephin. Patient has been afebrile, has minimal leukocytosis. He denied urinary symptoms. Urinalysis revealed clear urine, negative for nitrite, there was only 25 leukocyte esterase, there was 5-10 WBCs and 1+ bacteria. Urine culture is pending. Plan to continue Rocephin, awaiting urine culture. #3 chronic hepatitis C: Recommend follow-up with infectious disease as outpatient. Patient used to follow-up with Dr. Romy Giron in the past. #4 tobacco abuse: Continue NicoDerm patch. #5 DVT prophylaxis: Low risk patient, no prophylaxis indicated. This note was generated with [employer] dictation software. It may contain incorrect words, spelling, and punctuation that were not noted in checking the note before signing. Code Visit Inpatient E&M: 07484 Subs Hosp L2
[2018-07-13] MEDS: Pramipexole Di-HCl 0.25 MG Tablet PO ×2 (10:39→22:35)
[2018-07-13 10:47] VITALS: BP 113/58; PULSE 75; RESP 18; TEMP 36.9
[2018-07-13 13:34] VITALS: BP 110/60; PULSE 80; RESP 16; TEMP 36.7
[2018-07-13] MEDS: Methocarbamol 750 MG Tablet PO (13:38)
[2018-07-13] MEDS: Mag Hydrox/Al Hydrox/Simeth 30 ML UDC PO (17:37)
[2018-07-13 17:39] VITALS: BP 115/66; PULSE 79; RESP 14; TEMP 36.8
[2018-07-13] MEDS: Ibuprofen 600 MG Tablet PO (18:18)
[2018-07-13] MEDS: traZODone 50 MG Tablet PO (21:35)
[2018-07-13] MEDS: Ciprofloxacin 500 MG Tablet PO (21:35)
[2018-07-13 21:42] VITALS: BP 110/61; PULSE 74; RESP 16; TEMP 36.6; O2SAT 97
[2018-07-14 03:05] VITALS: BP 96/48; PULSE 86; RESP 14; TEMP 36.3; O2SAT 97
[2018-07-14] MEDS: Buprenorphine HCl 2 MG TAB.SUBL SL ×2 (05:55→14:08)
--- NOTE | 2018-07-14 08:55 | PCM.PROGNOTE ---
Patient Problems: Active and Suspected Problems Opioid withdrawal delirium, acute, hyperactive (Acute) Cocaine abuse (Acute) Nicotine dependence (Acute) Benzodiazepine use (Acute) Subjective: Chief complaint: Follow-up after admission for acute opioid withdrawal for medical stabilization. Patient seen and examined. No acute events overnight. Today, he complains of mild abdominal cramps and restless legs. His vital signs are stable. - Physical Exam General: Alert, Oriented x3, Cooperative, No apparent distress HEENT: Atraumatic, PERRLA, EOMI, Normocephalic Oral: Moist Mucosa, No Gingival or Mucosal Lesions/ Ulcerations Neck: Supple, No JVD, Negative Carotid Bruits, Trachea Midline, Thyroid Normal Size and Texture Lungs: Clear to auscultation, Normal air movement, No rhonchi, No wheeze, No rales Cardiovascular: Regular rate, Regular Rhythm, Normal S1, Normal S2, No murmurs, PMI Normal Abdomen: Bowel Sounds Present, Soft, Non Tender, Non-Distended, No Hepato-splenomegaly Extremities: No clubbing, No cyanosis, No edema Skin: No rashes, No breakdown Lymphatic: No Cervical, Supraclavicular, or Inguinal Adenopathy Neurological: Cranial nerves II-XII grossly intact, Neuro grossly intact Psych/Mental Status: Normal Affect, Appropriate, Alert and oriented to time, place, person, mood and affect Vital Signs Temp Pulse Resp BP Pulse Ox 97.3 F L 86 14 96/48 L 97 07/14/18 03:05 07/14/18 03:05 07/14/18 03:05 07/14/18 03:05 07/14/18 03:05 Oxygen Delivery Method Room Air Weight: 172 lb 13.478 oz Body Mass Index (BMI) 27.1 Intake and Output for Last 24 Hours 07/12/18 07/13/18 07/14/18 23:59 23:59 23:59 Intake Total 1450 / 1450 400 / 400 Balance 1450 / 1450 400 / 400 Microbiology Past 72 Hours 07/12/18 21:24 Urine Culture - Preliminary Urine, Clean Catch Culture exhibits no growth. Medical Necessity - Tobacco Use Smoking Status: Current every day smoker Tobacco Use: Cigarettes Assessment/Plan All Active Problems Opioid withdrawal delirium, acute, hyperactive (Acute) Cocaine abuse (Acute) Nicotine dependence (Acute) Benzodiazepine use (Acute) This is a 27 years old male patient presented to the emergency room requesting admission for acute opioid withdrawal for medical stabilization. #1 acute opiate withdrawal: He is on [facility] protocol with tapering course of Subutex, as needed Librium, Catapres, Bentyl, Vistaril, methocarbamol, Mirapex, trazodone and Zofran. Symptoms started to improve, has been having intermittent abdominal cramps and restless legs. His vital signs are stable. Plan to continue same treatment, anticipate DC home tomorrow. #2 probable acute cystitis: Received empiric IV Rocephin but because his IV line went bad, he was started on oral ciprofloxacin. Preliminary urine culture showed no growth, awaiting final result. Plan to continue oral ciprofloxacin until final culture is negative. #3 chronic hepatitis C: Recommend follow-up with infectious disease as outpatient. Patient used to follow-up with Dr. Romy Giron in the past. #4 tobacco abuse: Continue NicoDerm patch. #5 DVT prophylaxis: Low risk patient, no prophylaxis indicated. This note was generated with [employer] dictation software. It may contain incorrect words, spelling, and punctuation that were not noted in checking the note before signing. Code Visit Inpatient E&M: 40070 Subs Hosp L2
--- NOTE | 2018-07-14 08:59 | PN_ITS ---
Patient Problems: Active and Suspected Problems Opioid withdrawal delirium, acute, hyperactive (Acute) Cocaine abuse (Acute) Nicotine dependence (Acute) Benzodiazepine use (Acute) Subjective: Chief complaint: Follow-up after admission for acute opioid withdrawal for medical stabilization. Patient seen and examined. No acute events overnight. Today, he complains of mild abdominal cramps and restless legs. His vital signs are stable. - Physical Exam General: Alert, Oriented x3, Cooperative, No apparent distress HEENT: Atraumatic, PERRLA, EOMI, Normocephalic Oral: Moist Mucosa, No Gingival or Mucosal Lesions/ Ulcerations Neck: Supple, No JVD, Negative Carotid Bruits, Trachea Midline, Thyroid Normal Size and Texture Lungs: Clear to auscultation, Normal air movement, No rhonchi, No wheeze, No rales Cardiovascular: Regular rate, Regular Rhythm, Normal S1, Normal S2, No murmurs, PMI Normal Abdomen: Bowel Sounds Present, Soft, Non Tender, Non-Distended, No Hepato- splenomegaly Extremities: No clubbing, No cyanosis, No edema Skin: No rashes, No breakdown Lymphatic: No Cervical, Supraclavicular, or Inguinal Adenopathy Neurological: Cranial nerves II-XII grossly intact, Neuro grossly intact Psych/Mental Status: Normal Affect, Appropriate, Alert and oriented to time, place, person, mood and affect Vital Signs Temp Pulse Resp BP Pulse Ox 97.3 F L 86 14 96/48 L 97 07/14/18 03:05 07/14/18 03:05 07/14/18 03:05 07/14/18 03:05 07/14/18 03:05 Oxygen Delivery Method Room Air Weight: 172 lb 13.478 oz Body Mass Index (BMI) 27.1 Intake and Output for Last 24 Hours 07/12/18 07/13/18 07/14/18 23:59 23:59 23:59 Intake Total 1450 / 1450 400 / 400 Balance 1450 / 1450 400 / 400 Microbiology Past 72 Hours 07/12/18 21:24 Urine Culture - Preliminary Urine, Clean Catch Culture exhibits no growth. Medical Necessity - Tobacco Use Smoking Status: Current every day smoker Tobacco Use: Cigarettes Assessment/Plan All Active Problems Opioid withdrawal delirium, acute, hyperactive (Acute) Cocaine abuse (Acute) Nicotine dependence (Acute) Benzodiazepine use (Acute) This is a 27 years old male patient presented to the emergency room requesting admission for acute opioid withdrawal for medical stabilization. #1 acute opiate withdrawal: He is on [facility] protocol with tapering course of Subutex, as needed Librium, Catapres, Bentyl, Vistaril, methocarbamol, Mirapex, trazodone and Zofran. Symptoms started to improve, has been having intermittent abdominal cramps and restless legs. His vital signs are stable. Plan to continue same treatment, anticipate DC home tomorrow. #2 probable acute cystitis: Received empiric IV Rocephin but because his IV line went bad, he was started on oral ciprofloxacin. Preliminary urine culture showed no growth, awaiting final result. Plan to continue oral ciprofloxacin until final culture is negative. #3 chronic hepatitis C: Recommend follow-up with infectious disease as outpatient. Patient used to follow-up with Dr. Romy Giron in the past. #4 tobacco abuse: Continue NicoDerm patch. #5 DVT prophylaxis: Low risk patient, no prophylaxis indicated. This note was generated with [employer] dictation software. It may contain incorrect words, spelling, and punctuation that were not noted in checking the note before signing. Code Visit Inpatient E&M: 37414 Subs Hosp L2
[2018-07-14] MEDS: Ciprofloxacin 500 MG Tablet PO ×2 (09:19→21:08)
[2018-07-14] MEDS: hydrOXYzine PAM 25 MG Capsule 50 MG PO (09:30)
[2018-07-14 10:00] VITALS: BP 120/56; PULSE 77; RESP 18; TEMP 36.5
[2018-07-14 14:00] VITALS: BP 112/67; PULSE 89; RESP 18; TEMP 36.8
--- NOTE | 2018-07-14 16:04 | CHAPLAIN ---
Type of Pastoral Visit _x__ Initial Visit ___ Follow-up Visit ___ On-call Visit ___ General Patient Visit ___ Spiritual Assessment ___ Family Conference ___ Bereavement ___ Rapid Response ___ Code Blue ___ Other (describe below) Pastoral Care Referral From _x__ Patient ___ Family ___ Nurse ___ Physician ___ Tower Hand ___ Dry Clipper Tender ___ Other (describe below) Sacrament/Intervention ___ Active listening ___ Anointing ___ Religious ___ Bereavement ___ Communion ___ Daphney exploration ___ ___ Life review _x__ Prayer ___ Reconciliation ___ Sacrament of Sick ___ Supportive presence ___ Wedding ___ Other (describe below) Pastoral Comments offer of spiritual support to patient; pt said that he would receive a prayer but did not need anything further; pt did have a visitor at this time
[2018-07-14 18:00] VITALS: BP 133/58; PULSE 93; RESP 18; TEMP 36.2
[2018-07-14 21:02] VITALS: BP 108/53; PULSE 90; RESP 16; TEMP 36.6
[2018-07-14 21:04] VITALS: O2SAT 97
[2018-07-14] MEDS: traZODone 50 MG Tablet PO (21:08)
[2018-07-14] MEDS: Pramipexole Di-HCl 0.25 MG Tablet PO (21:08)
[2018-07-14] MEDS: Dicyclomine 10 MG Capsule 20 MG PO (21:09)
[2018-07-14] MEDS: Methocarbamol 750 MG Tablet PO (21:09)
[2018-07-15 02:28] VITALS: BP 112/53; PULSE 71; RESP 16; TEMP 36.4
[2018-07-15] MEDS: Buprenorphine HCl 2 MG TAB.SUBL SL ×2 (02:31→14:31)
[2018-07-15] MEDS: Ibuprofen 600 MG Tablet PO (02:35)
[2018-07-15 03:05] VITALS: O2SAT 97
[2018-07-15] MEDS: Methocarbamol 750 MG Tablet PO (03:06)
--- NOTE | 2018-07-15 08:35 | DCINST_ITS ---
- Discharge Diagnoses Current Active Problems: Current Active and Chronic Problems Opioid withdrawal delirium, acute, hyperactive (Acute) Cocaine abuse (Acute) Nicotine dependence (Acute) Benzodiazepine use (Acute) You will use the following diet at home:: Regular Your food should be the consistency of: Regular Discharge Activity: Return to Normal Activity Weight Bearing Status: Full weight bearing Call your doctor if you observe: Fever of 101 or Higher, Shortness of breath, Dizziness, Fainting spells, Chest pain, Increased palpitations (irregular heartbeat), Uncontrolled pain Allergies/Adverse Reactions: Allergies No Known Allergies Allergy (Verified 07/12/18 20:13) Medications to take at Discharge NK 07/12/18 Primary Care Physician: Remington Coleman MD [Primary Care Provider] - Please follow up with your Primary Care Physician in: 2-4 weeks. Test Results: Test results from this visit will be discussed in further detail at your follow- up appointment, if applicable.
[2018-07-15 10:00] VITALS: BP 121/61; PULSE 64; RESP 18; TEMP 36.9
[2018-07-15] MEDS: Ciprofloxacin 500 MG Tablet PO (10:17)
--- NOTE | 2018-07-15 13:23 | DS.PCM_ITS ---
Discharge Date and Diagnosis - Problem List Patient Problems: Active and Suspected Problems Opioid withdrawal delirium, acute, hyperactive (Acute) Cocaine abuse (Acute) Nicotine dependence (Acute) Benzodiazepine use (Acute) Date of Admission: 07/12/18 Date of Discharge: 07/15/18 - Primary Discharge Diagnosis Active and Suspected Problems acute opioid withdrawal admitted for medical stabilization. - Secondary Discharge Diagnosis Chronic Problems Polysubstance abuse (Chronic) Hospital Course and Treatment Operations: None Procedures: None Summary of Care Provided: Patient seen and examined on the day of discharge and appeared to be stable to be discharged home. His symptoms of withdrawal continue to improve and is feeling better. His vital signs are stable. The patient is a 27 year old M presented to the emergency department requesting admission for acute opioid withdrawal for medical stabilization. Patient has been using different drugs including IV heroin, fentanyl, snorts the cocaine and uses occasional Xanax. He was treated with [facility] protocol with tapering course of Subutex, as needed Librium, Catapres, Bentyl, Vistaril, methocarbamol, Mirapex, trazodone and Zofran. His routine blood work was unremarkable. LFT revealed slightly elevated liver transaminases, normal alkaline phosphatase. Lipase was normal. His urine drug screen was positive for opioids, amphetamines and cocaine. Initially, there was a concern that he may have acute cystitis for which she was treated with IV Rocephin empirically. Patient remained without symptoms, remained afebrile. Urine culture showed no growth. IV Rocephin discontinued. With above-mentioned treatment, patient symptoms improved. Patient discharged home in a stable medical condition, recommended follow-up with PCP in 2-4 weeks, follow-up with [facility] as requested, recommended follow-up or referral to infectious disease regarding chronic hepatitis C. Patient Problems: Active and Suspected Problems Opioid withdrawal delirium, acute, hyperactive (Acute) Cocaine abuse (Acute) Nicotine dependence (Acute) Benzodiazepine use (Acute) - Physical Exam General: Alert, Oriented x3, Cooperative, No apparent distress HEENT: Atraumatic, PERRLA, EOMI Neck: Supple, No JVD, Negative Carotid Bruits, Trachea Midline, Thyroid Normal Size and Texture Lungs: Clear to auscultation, Normal air movement, No rhonchi, No wheeze, No rales Cardiovascular: Regular rate, Regular Rhythm, Normal S1, Normal S2 Abdomen: Bowel Sounds Present, Soft, Non Tender, Non-Distended, No Hepato- splenomegaly Extremities: No clubbing, No cyanosis, No edema Skin: No rashes, No breakdown Lymphatic: No Cervical, Supraclavicular, or Inguinal Adenopathy Neurological: Cranial nerves II-XII grossly intact, Neuro grossly intact Psych/Mental Status: Normal Affect, Appropriate Vital Signs Temp Pulse Resp BP Pulse Ox 98.5 F 64 18 121/61 H 97 07/15/18 10:00 07/15/18 10:00 07/15/18 10:00 07/15/18 10:00 07/15/18 03:05 Oxygen Delivery Method Room Air Weight: 172 lb 13.478 oz Body Mass Index (BMI) 27.1 Intake and Output for Last 24 Hours 07/13/18 07/14/18 07/15/18 23:59 23:59 23:59 Intake Total 1450 / 1450 2400 / 2400 1000 / 1000 Balance 1450 / 1450 2400 / 2400 1000 / 1000 Microbiology Past 72 Hours 07/12/18 21:24 Urine Culture - Final Urine, Clean Catch Culture exhibits no growth. Discharge Activity: Return to Normal Activity Weight Bearing Status: Full weight bearing Call your doctor if you observe: Fever of 101 or Higher, Shortness of breath, Dizziness, Fainting spells, Chest pain, Increased palpitations (irregular heartbeat), Uncontrolled pain Home Medications: Medications to take at Discharge NK 07/12/18 Primary Care Physician: Remington Coleman MD [Primary Care Provider] - Please follow up with your Primary Care Physician in: 2-4 weeks. Disposition: Home Minutes spent on discharge:: 24 Patient Condition:: Stable Medical Necessity - Tobacco Use Smoking Status: Current every day smoker Tobacco Use: Cigarettes Meaningful Use Info Meaningful Use Diagnoses (Choose all that apply): None applicable Code Visit Inpatient E&M: 28927 Disch Hosp
[2018-07-15 14:00] VITALS: BP 114/57; PULSE 80; RESP 18; TEMP 36.8
[2018-07-15 14:35] VITALS: BP 114/57; PULSE 80; RESP 18; TEMP 36.8; O2SAT 98
== END 2018-07-15 14:41 | disposition home or self-care (01) | DRG 897 ==
LOC: ED 21:01 → MS3 22:44
PROVIDERS: Admitting Provider Internal Medicine; Emergency Provider Emergency Medicine; Family Provider Family Medicine; PCP Family Medicine; Visit Provider Hospitalist
DX: F11.23 Opioid dependence with withdrawal (principal); F17.210 Nicotine dependence, cigarettes, uncomplicated; B18.2 Chronic viral hepatitis C; F19.10 Other psychoactive substance abuse, uncomplicated; Z23 Encounter for immunization
CPT/HCPCS: 80053; 80307; 80320; 81001; 83690; 85025; 85610; 87086; 97802; 99281; 90686; G0480

== ENCOUNTER 2018-08-08 09:22 | Emergency (ER) | payer OTHER, SELFPAY ==
[2018-08-08 09:22] VITALS: BP 148/76; PULSE 114; RESP 18; TEMP 36.6; O2SAT 100; BMI 26.6; BMI 32.1
--- NOTE | 2018-08-08 09:33 | ED.DCSUM_ITS ---
- ER Visit Summary Date of Service: 08/08/18 Chief Complaint: Toothache History of Present Illness: The patient is a 28 M who presents with tooth pain. Started yesterday. He has had a broken tooth on the right lower molars for about 1-2 months. The pain started yesterday. He has had some mild swelling. He felt warm but no documented fevers. He tried ibuprofen without any relief. He does have a dentist that he can see. Physical Examination: Vital signs are reviewed. HEENT exam reveals mild right- sided facial swelling. He has widespread dental decay. He has tenderness to tooth percussion at tooth #32. There are multiple teeth that are broken off or rotted Test Results: None performed Emergency Department Course and Treatment: Patient will be given naproxen and Pen-Vee K. He will go home with the same. He will call his dentist for follow- up. Treatment Plan: [] Disposition: Discharge Impression: Odontalgia This note was generated with [employer] dictation software. It may contain incorrect words, spelling, and punctuation that were not noted in review of the chart prior to signing ED Disposition - Plan for ED Patient: Chief Complaint: Dental Referrals: Remington Coleman MD [Primary Care Provider] -
--- NOTE | 2018-08-08 09:33 | ED.DEP ---
ED Disposition - Plan for ED Patient: Disposition: Home or Assisted Living Chief Complaint: Dental Instructions: ED Tooth Pain Prescriptions: Naproxen [Naprosyn] 500 mg PO BID PRN #20 tab Penicillin Vk [Pen-Vee K 250MG] 500 mg PO 4X/DAY #28 tab Referrals: Remington Coleman MD [Primary Care Provider] -
[2018-08-08] MEDS: Penicillin Vk 250 MG Tablet 500 MG PO (09:43)
[2018-08-08] MEDS: Naproxen 500 MG Tablet PO (09:43)
== END 2018-08-08 09:46 | disposition home or self-care (01) ==
LOC: ED 09:38
PROVIDERS: Emergency Provider Emergency Medicine; Family Provider Family Medicine; PCP Family Medicine
DX: K08.89 Other specified disorders of teeth and supporting structures (principal); Z72.0 Tobacco use
CPT/HCPCS: 99283

== ENCOUNTER 2018-08-13 16:52 | Emergency (ER) | payer OTHER, SELFPAY ==
[2018-08-08 09:22] VITALS: BMI 26.6
[2018-08-13 16:53] VITALS: BP 99/56; PULSE 70; RESP 16; TEMP 36.3; O2SAT 98; BMI 26.7
[2018-08-13 17:06] VITALS: BP 129/73; PULSE 61; RESP 12; TEMP 36.6
--- NOTE | 2018-08-13 17:41 | ED.DCSUM_ITS ---
- ER Visit Summary Date of Service: 08/13/18 Chief Complaint: [] Right lower dental pain for weeks on clindamycin History of Present Illness: The patient is a 28 M [] indicates she has had right lower dental pain for weeks and clindamycin indicates he was seen in the doctor's office today and he was sent to the emergency department to receive IV antibiotics he has had no facial swelling no fever no cough he indicates he was referred to a dentist and they want to continue the antibiotics and follow-up, h aba has a history of opioid dependency in the past he had no other complaints Physical Examination: [] 168/80 he was resting comfortably in the bed no distress His general medical exam is unremarkable The face is unremarkable Use dental decay he has multiple teeth to the right lower that are decayed down to the root line the gingival gumline is intact the floor the mouth is intact his tongue is normal there is no signs of Serg's his speech phonation breathing and swallowing are normal The physical exam unremarkable otherwise unremarkable Spoke with Dr. eaton his attending physician, who indicated that they did not send him in for that purpose, the plan at this time is to have him stay on the clindamycin will add Augmentin Naprosyn for the pain the patient's been i nstructed to follow-up with his dentist as instructed Test Results: [] Emergency Department Course and Treatment: [] Treatment Plan: [] Disposition: [] Home stable Impression: [] Diffuse dental decay with pain This note was generated with [employer] dictation software. It may contain incorrect words, spelling, and punctuation that were not noted in review of the chart prior to signing ED Disposition - Plan for ED Patient: Chief Complaint: Dental Referrals: Remington Coleman MD [Primary Care Provider] -
--- NOTE | 2018-08-13 17:41 | ED.DEP ---
ED Disposition - Plan for ED Patient: Chief Complaint: Dental Instructions: ED Tooth Pain, ED Cavity Dental Prescriptions: Amox/Clavulanate Tablet [Augmentin Tablet] 875 mg PO Q12H #20 tab Naproxen [Naprosyn] 500 mg PO BID PRN #20 tab Referrals: Remington Coleman MD [Primary Care Provider] - Additional Instructions: Continue the clindamycin and the medications prescribed today, follow-up all with all of your outpatient providers including her dentist
--- OUTSIDE RECORDS SUMMARY | 2018-09-29 14:49 | XMS RPT_ITS ---
:1990 Author Organization OHIP Support Name Relationship Address Phone Steph Calzada Unavailable Unavailable + ADVDR Unavailable [address] [facility] + [place] [address] DELVALLE, LAURA Unavailable Unavailable + [place] [address] DELVALLE, LAURA Unavailable Unavailable + [place] [address] DELVALLE, LAURA Unavailable Unavailable + [place] [address] DELVALLE, LAURA Unavailable Unavailable + [place] [address] DELVALLE, LAURA Unavailable Unavailable + [place] [address] ADVDR Unavailable [address] [facility] + [place] [address] DELVALLE, LAURA Unavailable Unavailable + [place] [address] ADVDR Unavailable [address] [facility] + [place] [address] DELVALLE, LAURA Unavailable Unavailable + [place] [address] ADVDR Unavailable [address] [facility] + [place] [address] DELVALLE, LAURA Unavailable Unavailable + [place] [address] ADVDR Unavailable [address] [facility] + [place] [address] DELVALLE, LAURA Unavailable Unavailable + [place] [address] ADVDR Unavailable [address] [facility] + [place] [address] DELVALLE, LAURA Unavailable Unavailable + [place] [address] ADVDR Unavailable [address] [facility] + [place] [address] DELVALLE, LAURA Unavailable Unavailable + [place] [address] ADVDR Unavailable [address] [place] [address] + [place] [address] DELVALLE, LAURA Unavailable Unavailable + [place] [address] ADVDR Unavailable [address] [place] [address] + [place] [address] DELVALLE, LAURA Unavailable Unavailable + [place] [address] ADVDR Unavailable [address] [place] [address] + [place] [address] DELVALLE, LAURA Unavailable Unavailable + [place] [address] ADVDR Unavailable [address] [place] [address] + [place] [address] DELVALLE, LAURA Unavailable . + [place] [address] DELVALLE, LAURA Unavailable Unavailable + [place] [address] DELVALLE, LAURA Unavailable Unavailable + [place] [address] ADVDR Unavailable [address] [place] [address] + [place] [address] DELVALLE, LAURA Unavailable . + [place] [address] ADVDR Unavailable [address] [place] [address] + [place] [address] DELVALLE, LAURA Unavailable . + [place] [address] Care Team Providers Name Role Phone LIZZY MATIAS DO Attending Unavailable PHYSICIAN, NOT RECORDED Primary Care Unavailable JESSICA BRAND Attending Unavailable PHYSICIAN, NOT RECORDED Primary Care Unavailable DR. MICHELE COLÓN DO Attending Unavailable PHYSICIAN, NOT RECORDED Primary Care Unavailable MADDIE STRICKLAND Referring Unavailable Riccardo Ward Attending Unavailable PROVIDER, UNKNOWN Referring Unavailable No, PCP Primary Care Unavailable Jared, [place] Primary [facility] Unavailable Liza Rizvi Attending Unavailable [facility], [place] Primary [facility] Unavailable Fredy Tejada Attending Unavailable [facility], [place] Primary [facility] Unavailable Gregory Infante Attending Unavailable [place], Christopher Attending Unavailable [place], [place] Primary [facility] Unavailable Ranney, Christopher Attending Unavailable Ranrockford, Christopher Referring Unavailable [facility] [place], [place] Primary Care Unavailable Eric Ta Attending Unavailable Ranney, Christopher Attending Unavailable [place], [place] Primary Care Unavailable [place], [place] Primary Care Unavailable Dejuan, Benjamin Admitting Unavailable [place]helfah, Ghasem Attending Unavailable Dejuan, Benjamin Attending Unavailable [place]available Dejuan, Benjamin Admitting Unavailable [place]helfah, Ghasem Attending Unavailable [place] Unavailable Ashelfah, Ghasem Consulting Unavailable Dejuan, Benjamin Admitting Unavailable Ashelfah, Ghasem Attending Unavailable [place], [place] Primary Care Unavailable Ashelfah, Ghasem Consulting Unavailable Dejuan, Benjamin Admitting Unavailable [place]helfah, Ghasem Attending Unavailable [facility], [place] Primary Care Unavailable [place]helf[place], Ghasem Consulting Unavailable [facility], [place] Primary [facility] Unavailable Justin Combs Attending Unavailable PROBLEMS PROBLEMS DATE TYPE CONDITION / CODE ATTENDING STATUS SOURCE 02/23/2018 Unknown M79.671 - Pain in [place], Active [place] right foot / [facility] M79.671(ICD-10) Hospital Repository 02/13/2018 Active Unspecified NA Active [facility] injury of right [place] foot, initial Repository encounter / S99.921A(ICD-10) PROCEDURES PROCEDURES No Procedure Records FoundRESULTS RESULTS ETHANOL SERUM/PLASMA Collected: 08/26/2018 Status: F Source: [employer] 11:54 AM SYSTEM REPOSITORY TYPE CODE TESTS RESULT OUT OF RANGE REFERENCE UNITS LAB ETOH3 0.000-0.010 g/dL Normal < 0.010 Ethanol-Seru m/Plasma Result Comment: NOTE: This result is for medical treatment only. Analysis performed using non-forensic procedures. Performed By: #### ETOH4, CMP3, HEMDF #### [email or web address] [address] [place] [phone] COMP METABOLIC PANEL Collected: 08/26/2018 Status: F Source: [employer] 11:54 AM SYSTEM REPOSITORY TYPE CODE TESTS RESULT OUT OF RANGE REFERENCE UNITS LAB NA3 135-145 mmol/L Normal Sodium 139 LAB K3 3.5-5.1 mmol/L High Potassium 5.3 Result Comment: Slightly hemolysed, interpret with caution. LAB CL3 98-107 mmol/L Normal Chloride 106 LAB CO23 22-30 mmol/L Normal Carbon Dioxide 26 LAB ANIN3 NA Anion Gap 8 LAB GLUC3 70-100 mg/dL High Glucose 108 LAB BUN3 7-20 mg/dL Normal Urea Nitrogen 14 LAB CRET3 0.52-1.25 mg/dL Normal Creatinine 0.71 LAB GF3BR >60 mL/min eGFR > 60.0 LAB GF3WR >60 mL/min eGFR OTHER > 60.0 Result Comment: Source- MDRD equation with creatinine calibration to IDMS(NKDEP) eGFR not recommended for drug dose adjustment LAB CA3 8.4-10.4 mg/dL Calcium Normal 9.5 LAB ALB3 3.5-5.0 g/dL Albumin, Serum Normal 4.3 LAB TP3 6.3-8.2 g/dL Total Protein Normal 7.4 LAB BILT3 0.2-1.3 mg/dL Normal Bilirubin,Total 0.6 LAB ALKP3 38-126 U/L Alkaline Normal Phosphatase 87 Result Comment: Slightly hemolysed, interpret with caution. LAB ALT3 13-69 U/L High ALT (SGPT) 81 Result Comment: Slightly hemolysed, interpret with caution. LAB AST3 15-46 U/L High AST (SGOT) 60 Result Comment: Slightly hemolysed, interpret with caution. Performed By: #### ETOH4, CMP3, HEMDF #### [email or web address] [address] [place] [phone] HEMOGRAM W/ AUTODIFF Collected: 08/26/2018 Status: F Source: [employer] 11:54 AM SYSTEM REPOSITORY TYPE CODE TESTS RESULT OUT OF REFERENCE UNITS RANGE LAB IWBC 3.6-10.7 10*3/uL WBC Normal 9.8 LAB RBC 4.40-5.90 10*6/uL RBC Normal 5.43 LAB HGB 13.0-18.0 g/dL Hemoglobin Normal 16.2 LAB HCT 40.0-52.0 % Hematocrit Normal 47.4 LAB MCV 80.0-98.0 fL MCV Normal 87.3 LAB MCH 26.0-34.0 pg MCH Normal 29.9 LAB MCHC 32.0-36.0 % MCHC Normal 34.2 LAB RDW 11.5-14.5 % RDW Normal 13.0 LAB PLT 140-440 10*3/uL Platelet Normal 191 LAB MPV 7.4-10.4 fL MPV Normal 9.9 LAB GRAN% 40.0-80.0 % Granulocytes Normal 78.9 LAB LYMP% 20.0-40.0 % Low Lymphocytes 13.2 LAB MONO% 2.0-10.0 % Monocytes Normal 6.0 LAB EOS% 1.0-6.0 % Eosinophils Normal 1.3 LAB BAS% 0.0-2.0 % Basophils Normal 0.6 LAB ANC 1.8-7.0 10*3/uL Abs High Neutrophile Cnt 7.7 LAB ALC 1.0-4.3 10*3/uL Abs Lymph Cnt Normal 1.3 LAB AMC 0.0-0.8 10*3/uL Abs Monocyte Normal Cnt 0.6 LAB AEC 0.0-0.5 10*3/uL Abs Eosin Cnt Normal 0.1 LAB ABC 0.0-0.2 10*3/uL Abs Baso Cnt Normal 0.1 Performed By: #### ETOH4, CMP3, HEMDF #### [facility] [address] [place] [phone] DRUGS OF ABUSE Collected: 08/26/2018 Status: F Source: [employer] 11:54 AM SYSTEM REPOSITORY TYPE CODE TESTS RESULT OUT OF REFERENCE UNITS RANGE LAB AMP3 NA Amphetamines, Ur Negative LAB BARB3 NA Barbiturates, Ur Negative LAB BENZ3 NA Benzodiazepines, Negative Ur LAB COC3 NA Cocaine, Ur Negative LAB METH3 NA Methadone, Ur Negative LAB OPI3 NA Opiates, Ur Positive LAB OXY3 NA Oxycodone/Oxymorph Negative ine,Ur LAB PCP3 NA Phencyclidine (PCP), Ur Negative Result Comment: The expected value for all of the drugs listed above is Negative. The following drugs or drug groups have been screened for by Immunoassay at the following thresholds: Amphetamine class (1000 ng/mL), Barbiturates (200 ng/mL), Benzodiazepines (200 ng/mL), Cocaine (300 ng/mL), Methadone (300 ng/mL), Opiates (300 ng/mL), Oxycodone (100 ng/mL), and PCP (25 ng/mL). NOTE: These results are for medical treatment only. Analysis performed using non-forensic procedures. POSITIVE results are NOT confirmed by a more specific alternative method unless requested. If confirmation is needed, request confirmation under separate order. Performed By: #### DRGA4 #### [email or web address] [address] [place] [phone] ED PROVIDER NOTE Observed: 08/26/2018 Status: F Source: [employer] 10:52 AM SYSTEM REPOSITORY Emergency Department Encounter [facility] EMERGENCY DEPT Patient: Amado Delvalle : 1990 Date of Evaluation: 08/26/2018 ED Supervising Physician: RICCARDO WARD MD I independently examined and evaluated Amado Delvalle. In brief, Amado Delvalle is a 28 y.o. male that presents to the emergency department for evaluation of opiate dependence. Patient last used heroin last night and has a bed at [facility] for detox. Patient is expressing some withdrawal symptoms. Denies any suicidal homicidal ideation. Denies auditory or visual hallucinations. And states that he had been sober and relapse starting back in May. Focused exam: General appearance: Well-appearing, no acute distress. Psych: Awake alert and oriented ?3. Pleasant and cooperative. Skin: Warm and dry. Neck: Supple. Cardiovascular: Regular rate and rhythm, normal S1-S2 no murmurs rubs or gallops. Lungs: Clear to auscultation bilaterally, no accessory muscle use, tachypnea, or retractions. Abdomen: Soft, nontender, and nondistended, no rebound, rigidity, or guarding, positive bowel sounds 4 quadrants. Extremities: Warm and well perfused. NROM and SILT throughout upper and lower extermities. Brief ED course/MDM: The patient will be evaluated with blood work for medical clearance for admission to [facility] Detox unit. All diagnostic, treatment, and disposition decisions were made by myself in conjunction with the [facility]. For all further details of the patient's emergency department visit, please see their documentation. (Please note that portions of this note may have been completed with a voice recognition program. Efforts were made to edit the dictations but occasionally words are mis-transcribed.) RICCARDO WARD MD [employer] Riccardo Ward MD 08/26/18 1317 ED PROVIDER NOTE Observed: 08/26/2018 Status: F Source: [employer] 10:52 AM SYSTEM [facility] Patient: Amado Delvalle : 1990 Date of Evaluation: 08/26/2018 ED [facility] Provider: Kelly Blood PA-C EDcare was supervised by Dr. Ward who independently examined and evaluated the patient. Please see their attestation note for further details. Chief Complaint Chief Complaint Patient presents with ? Addiction Problem [place] Amado Delvalle is a 28 y.o. male whopresents to the emergency department For evaluation of crack addiction problem, medical clearance for admission to the detox center. Patient is originally from [facility], has been seen and evaluated and was sent here for admission to [facility]. He was called this morning, told that there was a bed available and that he had to be in the emergency Department by 1 PM to secure his bed. Patient admits that he has previously had substance abuse disorders. He has been sober for just over 2 years after a short stay in [facility], but admits to relapsing in May of this year. He has been using heroin, fentanyl multiple times per day. He does state once or twice he used meth, but does not do this routinely. Patient also smokes a pack per day. Last use was at 8 PM last evening. He reports that when he stops using, he feels anxious, sweaty, nauseous, often vomits and generally has struggled with withdrawal symptoms, hence why he is pursuing inpatient detox. ROS: Review of Systems Constitutional: Negative for chills, diaphoresis and unexpected weight change. HENT: Negative for ear pain, sinus pressure and sore throat. Eyes: Negative for pain and visual disturbance. Respiratory: Negative for cough, shortness of breath and wheezing. Cardiovascular: Negative for chest pain. Gastrointestinal: Negative for abdominal pain, constipation, nausea and vomiting. Genitourinary: Negative for dysuria, frequency and hematuria. Musculoskeletal: Negative for arthralgias and myalgias. Skin: Negative for rash and wound. Neurological: Negative for headaches. Psychiatric/Behavioral: Negative for confusion. At least 10 systems reviewed and otherwise acutely negative except as in the [place]. Past History History reviewed. No pertinent past medical history. Past Surgical History: Procedure Laterality Date ? TONSILLECTOMY Social History Social History ? Marital status: Legally Spouse name: N/A ? Number of children: N/A ? Years of education: N/A Social History Main Topics ? Smoking status: Current Every Day Smoker Packs/day: 1.00 Types: Cigarettes ? Smokeless tobacco: Never Used ? Alcohol use No ? Drug use: Yes Types: Other-see comments Comment: Heroin and Fentanyl ? Sexual activity: Not Asked Other Topics Concern ? None Social History Narrative ? None Medications/Allergies Previous Medications No medications on file No Known Allergies Physical Exam ED Triage Vitals [08/26/18 1103] BP Temp Temp Source Pulse Resp SpO2 Height Weight 111/61 98.2 ?F (36.8 ?C) Oral 72 18 100 % 5' 8 (1.727 m) 177 lb (80.3 kg) Physical Exam Constitutional: He is oriented to person, place, and time. He appears well-developed and well-nourished. Young male, lying in bed, no acute distress HENT: Head: Normocephalic and atraumatic. Mouth/Throat: Oropharynx is clear and moist. Eyes: Pupils are equal, round, and reactive to light. Conjunctivae and EOM are normal. Neck: Normal range of motion. Neck supple. Cardiovascular: Normal rate and regular rhythm. Pulmonary/Chest: Effort normal and breath sounds normal. No respiratory distress. He has no wheezes. He has no rales. Abdominal: Soft. Bowel sounds are normal. He exhibits no distension. There is no tenderness. There is no rebound. Musculoskeletal: Normal range of motion. Neurological: He is alert and oriented to person, place, and time. A cranial nerve deficit and sensory deficit is present. Coordination abnormal. No tremor Skin: Skin is warm and dry. Psychiatric: He has a normal mood and affect. His behavior is normal. Somewhat anxious but appropriate. No SI, HI. Nursing note and vitals reviewed. Diagnostics Labs: Results for orders placed or performed during the hospital encounter of 08/26/18 CBC Auto Differential Result Value Ref Range WBC 9.8 3.6 - 10.7 10*3/uL RBC 5.43 4.40 - 5.90 10*6/uL Hemoglobin 16.2 13.0 - 18.0 g/dL Hematocrit 47.4 40.0 - 52.0 % MCV 87.3 80.0 - 98.0 fL MCH 29.9 26.0 - 34.0 pg MCHC 34.2 32.0 - 36.0 % RDW 13.0 11.5 - 14.5 % Platelets 191 140 - 440 10*3/uL MPV 9.9 7.4 - 10.4 fL Granulocytes % 78.9 40.0 - 80.0 % Lymphocyte % 13.2 (L) 20.0 - 40.0 % Monocytes 6.0 2.0 - 10.0 % Eosinophils 1.3 1.0 - 6.0 % Basophils 0.6 0.0 - 2.0 % Absolute Neut # 7.7 (H) 1.8 - 7.0 10*3/uL Absolute Lymph # 1.3 1.0 - 4.3 10*3/uL Absolute [place] # 0.6 0.0 - 0.8 10*3/uL Absolute Eos # 0.1 0.0 - 0.5 10*3/uL Absolute Baso # 0.1 0.0 - 0.2 10*3/uL Urine Drug Screen Result Value Ref Range Amphetamines, urine Negative NA Barbiturates, Ur Negative NA Benzodiazepine Ur Qual Negative NA Cocaine Metabolites, Ur Negative NA Methadone, Urine Negative NA Opiates, Urine Positive NA Oxycodone Screen, Ur Negative NA PCP, Urine Negative NA Ethanol Result Value Ref Range Ethanol Lvl <0.010 0.000 - 0.010 g/dL Comprehensive Metabolic Panel Result Value Ref Range Sodium 139 135 - 145 mmol/L Potassium 5.3 (H) 3.5 - 5.1 mmol/L Chloride 106 98 - 107 mmol/L CO2 26 22 - 30 mmol/L Anion Gap 8 NA Glucose 108 (H) 70 - 100 mg/dL BUN 14 7 - 20 mg/dL CREATININE 0.71 0.52 - 1.25 mg/dL eGFR >60.0 >60 mL/min EGFR IF NonAfrican Somali >60.0 >60 mL/min Calcium 9.5 8.4 - 10.4 mg/dL Albumin,Serum 4.3 3.5 - 5.0 g/dL Total Protein 7.4 6.3 - 8.2 g/dL Total Bilirubin 0.6 0.2 - 1.3 mg/dL Alkaline Phosphatase 87 38 - 126 U/L ALT 81 (H) 13 - 69 U/L AST 60 (H) 15 - 46 U/L Radiographs: No results found. Procedures: EKG: All EKG's areinterpreted by the Emergency Department Physician in the absence of a last sorter.?Please see their note for interpretation of EKG. ED Course and MDM In brief, Amado Delvalle jeanne 28 y.o. male who presented to the emergency department for evaluation and medical clearance for admission to [facility]. Upon arrival, patient is found in no acute distress. He states that he has been working through symptoms since last night, and is currently okay. He was offered medication for any withdrawal like symptoms he may experience in the emergency department, but is stable at this time. We will obtain labs, urinalysis, screening for admission. Did also confirmed with [facility] that he is in fact on the list considering he is coming from [facility]. On repeat assessment, patient remains resting fairly comfortably in bed. He admits that he is anxious, but does not need medicated at this time. Workup in the emergency department returned. Drug screen positive for opiates. Ethanol less than 0.010. CBC unremarkable. CMP, unfortunately slightly hemolyzed, had a very mild elevation in potassium, 5.3, and slightly elevated alkaline phosphatase, ALT, AST. As these are not extremely high, I do not believe that repeat blood work is warranted, and he could certainly have this monitored. This ultimately could become dictation from the blood being hemolyzed. Patient is medically clear for admission to detox facility. [facility] detox physician paged for admission at 2:[address] Lux, who is agreed to admission to [facility] for detox from heroin/medical. Orders placed, will arrange for transportation. Patient updated on his findings in the emergency department, plan, and arrangements are being made for transportation. He will be admitted to [facility] and is stable for transport. ED Medication Orders None Final Impression 1. Heroin abuse (HCC) 2. Admitted to substance misuse detoxification center 3. Tobacco use DISPOSITION Decision To Admit 08/26/2018 02:07:16 PM (Please note that portions of this note may have been completed with a voice recognition program. Efforts were made to edit the dictations but occasionally words aremis-transcribed.) Kelly Blood PA-C [employer] Kelly Blood PA-C 08/26/18 1534 EMERGENCY DEPARTMENT Observed: 08/13/2018 Status: F Source: [place] SUMMARY 11:[address] [facility] REPOSITORY [facility] Medical Records Department [address] [place] [address] Emergency Department Summary 08/13/18 1739 MR#: [id number] Acct: [id number] Name: AMADO DELVALLE Rep #: [id number] : 1990 28 From: Liza Rizvi MD PCP: Donald Coleman MD Status: DEP ER - ER Visit Summary Date of Service: 08/13/18 Chief Complaint: [] Right lower dental pain for weeks on clindamycin History of Present Illness: The patient is a 28 M [] indicates she has had right lower dental pain for weeks and clindamycin indicates he was seen in the doctor's office today and he was sent to the emergency department to receive IV antibiotics he has had no facial swelling no fever no cough he indicates he was referred to a dentist and they want to continue the antibiotics and follow-up, he has a history of opioid dependency in the past he had no other complaints Physical Examination: [] 168/80 he was resting comfortably in the bed no distress His general medical exam is unremarkable The face is unremarkable Use dental decay he has multiple teeth to the right lower that are decayed down to the root line the gingival gumline is intact the floor the mouth is intact his tongue is normal there is no signs of Serg's his speech phonation breathing and swallowing are normal The physical exam unremarkable otherwise unremarkable Spoke with Dr. eaton his attending physician, who indicated that they did not send him in for that purpose, the plan at this time is to have him stay on the clindamycin will add Augmentin Naprosyn for the pain the patient's been instructed to follow- up with his dentist as instructed Test Results: [] Emergency Department Course and Treatment: [] Treatment Plan: [] Disposition: [] Home stable Impression: [] Diffuse dental decay with pain This note was generated with Vidderation software. It may contain incorrect words, spelling, and punctuation that were not noted in review of the chart prior to signing ED Disposition - Plan for ED Patient: Chief Complaint: Dental Referrals: Remington Coleman MD [Primary Care Provider] - What to do if you have Problems For any increased pain, shortness of breath, bleeding, nausea or vomiting, chest pain, or any unexpected problems, contact your Primary Care Provider. Call [facility] ([phone]) or report to the closest Emergency Room. Call 911 if necessary. 08/13/18 2319 <Electronically signed by Liza Rizvi MD> Date Liza Rizvi MD Cosigner Signature (If Indicated): Date CC: Donald Coleman MD DISCHARGE INSTRUCTION Observed: 08/13/2018 Status: F Source: [place] 5:[address] [facility] REPOSITORY [facility] Medical Records Department [address] [place] [address] Discharge Instruction 08/13/18 1741 MR#: [id number] Acct: [id number] Name: AMADO DELVALLE Rep #: [id number] : 1990 28 From: Liza Rizvi MD PCP: Donald Coleman MD Status: PRE ER ED Disposition - Plan for ED Patient: Chief Complaint: Dental Instructions: ED Tooth Pain, ED Cavity Dental Prescriptions: Amox/Clavulanate Tablet [Augmentin Tablet] 875 mg PO Q12H #20 tab Naproxen [Naprosyn] 500 mg PO BID PRN #20 tab Referrals: Remington Coleman MD [Primary Care Provider] - Additional Instructions: Continue the clindamycin and the medications prescribed today, follow-up all with all of your outpatient providers including her dentist What to do if you have Problems For any increased pain, shortness of breath, bleeding, nausea or vomiting, chest pain, or any unexpected problems, contact your Primary Care Provider. Call [facility] ([phone]) or report to the closest Emergency Room. Call 911 if necessary. 08/13/18 1746 <Electronically signed by Liza Rizvi MD> Date Liza Rizvi MD Cosigner Signature (If Indicated): Date CC: Donald Coleman MD CT MAXILLOFACIAL W/ Observed: 08/09/2018 Status: F Source: [place] CONTR[place] 3:06 PM [facility] REPOSITORY ORIGINAL CT MAXILLOFACIAL W/ CONTRAST CLINICAL STATEMENT: right jaw pain and swelling TECHNIQUE: Multiple-row detector helical CT examination of the facial bones. Axial, sagittal, and coronal reconstructed images. This exam was performed according to our departmental dose optimization pr raquel, and includes the following measures where applicable: automated exposure control, adjustment of the mAs and/or kVp according to patient size and/or exam, and an iterative reconstruction algorithm. COMPARISON: 11/06/2017.. FINDINGS: Evaluation of the mandible in the region of interest is severely compromised due to streak artifact from dental amalgam. Near the RIGHT 3rd mandibular molar there are erosive changes that do n ot extend into the root, consistent with large caries. There is no evidence of periapical abscess. However in this region there is lingual and buccal soft tissue swelling without drainable fluid collect ion. In the subcutaneous tissues overlying the RIGHT cheek there is subcutaneous induration and soft tissue thickening likely compatible with cellulitis. Additional dental caries affect the RIGHT premolar and 1st molar of the maxilla. This is associated with erosion of the cortical bone about the roots of both of these teeth. There is extended soft tissue swelling. The facial bones including the mandible demonstrate no fracture or dislocation. The globes are normal in size, contour, and position. The course and caliber of the optic nerve sheath complex is within normal limits. The extraocular muscles, intraconal fat, and extraconal fat are within normal limits. No lesion of the visualized skull base or calvarium is present. The tympanomastoid cavities are unopacified. There are no air-fluid levels in the paranasal sinuses. Unchanged LEFT maxillary retention cyst. IMPRESSION: Large and possibly infected dental caries in the RIGHT mandibular 2nd molar tooth. Additional dental caries in the RIGHT maxilla which includes erosion about the roots of both the RIGHT maxillary premolar and adjacent molar. I have personally reviewed the images of this examination and agree with the resident's findings and interpretation. Interpreted By: Ion Daniel DO Preliminary Report By: Maddie Crystal MD Electronically Signed By: Ion Daniel DO Dictated Date: 08/09/2018 3:24:46 PM Prelim Date: 08/09/2018 3:37:34 PM Sign Date: 08/09/2018 3:53:05 PM CBC Collected: 08/09/2018 Status: F Source: [facility] 2:30 PM [facility] REPOSITORY TYPE CODE TESTS RESULT OUT OF REFERENCE UNITS RANGE LAB WBC(LOINC) 4.60-10.80 10 3/mcL WBC 10.30 LAB RBCCT(LOINC 4.04-6.13 10 6/mcL ) RBC 5.17 LAB HGB(LOINC) 14.0-18.0 G/dL Hgb 15.2 LAB HCT(LOINC) 42.0-52.0 % Hct 45.2 LAB MCV(LOINC) 80.0-94.0 fL MCV 87.3 LAB MCH(LOINC) 27.0-31.2 pg MCH 29.5 LAB MCHC(LOINC) 31.8-35.4 G/dL MCHC 33.8 LAB RDW(LOINC) 11.5-14.5 % RDW 12.6 LAB PLT(LOINC) 130-400 10 3/mcL Platelet 208 LAB MPV(LOINC) 7.4-10.4 fL MPV 9.8 Performed By: #### CBC, ADIFF, ANEU #### [address] [address] #### BMP, GFR #### [address] [address] .AUTO DIFF Collected: 08/09/2018 Status: F Source: [facility] 2:30 PM [facility] REPOSITORY TYPE CODE TESTS RESULT OUT OF REFERENCE UNITS RANGE LAB KELSEY(LOINC) 37.0-80.0 % Neutrophil % 73.5 LAB LYM(LOINC) 10.0-50.0 % Lymphocyte % 17.6 LAB MON(LOINC) 1.7-13.0 % Monocyte % 6.5 LAB EO(LOINC) 0.0-7.0 % Eosinophil % 2.0 LAB BAS(LOINC) 0.0-2.5 % Basophil % 0.4 LAB ABLYM(LOIN 0.77-3.85 10 3/mcL C) Lymphocyte, 1.80 Absolute LAB PHIL(LOINC 0.15-1.00 10 3/mcL ) Monocyte, 0.70 Absolute LAB AEOS(LOINC 0.00-0.40 10 3/mcL ) Eosinophil, 0.20 Absolute LAB ABAS(LOINC 0.00-0.19 10 3/mcL ) Basophil, 0.00 Absolute Performed By: #### CBC, ADIFF, ANEU #### [place] [address] #### BMP, GFR #### [place] [address] .NEUABS Collected: 08/09/2018 Status: F Source: [facility] 2:30 [facility] REPOSITORY TYPE CODE TESTS RESULT OUT OF REFERENCE UNITS RANGE LAB ANEU(LOINC) 2.85-6.16 10 3/mcL High Neutrophil, 7.60 Absolute Performed By: #### CBC, ADIFF, ANEU #### [address] [address] #### BMP, GFR #### [place] [address] BMP Collected: 08/09/2018 Status: F Source: [facility] 2:30 [facility] REPOSITORY TYPE CODE TESTS RESULT OUT OF REFERENCE UNITS RANGE LAB GLU(LOINC) 70-105 mg/dL Glucose Level 97 LAB NA(LOINC) 136-145 mmol/L Sodium Level 138 LAB K(LOINC) 3.5-5.1 mmol/L Potassium Level 4.2 LAB CL(LOINC) 98-107 mmol/L Chloride 100 LAB CO2(LOINC) 22-29 mmol/L CO2 27 LAB EBAL(LOINC mEq/L ) Electrolyte Balance 11.0 LAB BUN(LOINC) 7-18 mg/dL Low BUN 6 LAB CRE(LOINC) 0.70-1.30 mg/dL Creatinine Lvl (s) 0.80 LAB BC(LOINC) 7-27 ratio BUN/Creatinine 8 Ratio LAB CA(LOINC) 8.4-10.2 mg/dL Calcium Lvl 9.4 Performed By: #### CBC, ADIFF, ANEU #### [facility] [address] [place], [place] [address] #### BMP, GFR #### [address] [address] .GFR Collected: 08/09/2018 Status: F Source: [facility] 2:30 [facility] REPOSIT[facility] TYPE CODE TESTS RESULT OUT OF REFERENCE UNITS RANGE LAB GFRAA(LOINC ml/min/1.73 ) sqm GFR 141 Somali Result Comment: GFR Population mean for , Non- Americans Ages 20-29 = 116 mL/min/1.73 sq.m. Ages 30-39 = 107 mL/min/1.73 sq.m. Ages 40-49 = 99 mL/min/1.73 sq.m. Ages 50-59 = 93 mL/min/1.73 sq.m. Ages 60-69 = 85 mL/min/1.73 sq.m. Ages 70+ = 75 mL/min/1.73 sq.m. Chronic Kidney Disease: Less than 60 mL/min/1.73 square meters End Stage Renal Disease: Less than 15 mL/min/1.73 square meters LAB GFRNO(LOINC) ml/min/1.73sqm GFR Non- 116 Result Comment: GFR Population mean for , Non- Americans Ages 20-29 = 116 mL/min/1.73 sq.m. Ages 30-39 = 107 mL/min/1.73 sq.m. Ages 40-49 = 99 mL/min/1.73 sq.m. Ages 50-59 = 93 mL/min/1.73 sq.m. Ages 60-69 = 85 mL/min/1.73 sq.m. Ages 70+ = 75 mL/min/1.73 sq.m. Chronic Kidney Disease: Less than 60 mL/min/1.73 square meters End Stage Renal Disease: Less than 15 mL/min/1.73 square meters Performed By: #### CBC, ADIFF, ANEU #### [place] [address] [place], [place] [address] #### BMP, GFR #### [address] [address] DISCHARGE INSTRUCTION Observed: 08/08/2018 Status: F Source: [place] 9:[address] [facility] REPOSITORY [facility] Medical Records Department [address] [place] [address] Discharge Instruction 08/08/18932 MR#: [id number] Acct: [id number] Name: AMADO DELVALLE Rep #: [id number] : 1990 28 From: Justin Combs MD PCP: Donald Coleman MD Status: PRE ER ED Disposition - Plan for ED Patient: Disposition: Home or Assisted Living Chief Complaint: Dental Instructions: ED Tooth Pain Prescriptions: Naproxen [Naprosyn] 500 mg PO BID PRN #20 tab Penicillin Vk [Pen-Vee K 250MG] 500 mg PO 4X/DAY #28 tab Referrals: Remington Coleman MD [Primary Care Provider] - What to do if you have Problems For any increased pain, shortness of breath, bleeding, nausea or vomiting, chest pain, or any unexpected problems, contact your Primary Care Provider. Call [facility] ([phone]) or report to the closest Emergency Room. Call 911 if necessary. 08/08/18933 <Electronically signed by Justin Combs MD> Date Justin Combs MD Cosigner Signature (If Indicated): Date CC: Donald Coleman MD EMERGENCY DEPARTMENT Observed: 08/08/2018 Status: F Source: [facility] SUMMARY 9:[address] [facility] REPOSITORY [facility] Medical Records Department [address] [place] [address] Emergency Department Summary 08/08/18930 MR#: [id number] Acct: [id number] Name: AMADO DELVALLE Rep #: [id number] : 1990 From: Justin Combs MD PCP: Donald Coleman MD Status: PRE ER - ER Visit Summary Date of Service: 08/08/18 Chief Complaint: Toothache History of Present Illness: The patient is a 28 M who presents with tooth pain. Started yesterday. He has had a broken tooth on the right lower molars for about 1-2 months. The pain started yesterday. He has had some mild swelling. He felt warm but no documented fevers. He tried ibuprofen without any relief. He does have a dentist that he can see. Physical Examination: Vital signs are reviewed. HEENT exam reveals mild right-sided facial swelling. He has widespread dental decay. He has tenderness to tooth percussion at tooth #32. There are multiple teeth that are broken off or rotted Test Results: None performed Emergency Department Course and Treatment: Patient will be given naproxen and Pen-Vee K. He will go home with the same. He will call his dentist for follow-up. Treatment Plan: [] Disposition: Discharge Impression: Odontalgia This note was generated with Dextrys dictation software. It may contain incorrect words, spelling, and punctuation that were not noted in review of the chart prior to signing ED Disposition - Plan for ED Patient: Chief Complaint: Dental Referrals: Remington Coleman MD [Primary Care Provider] - What to do if you have Problems For any increased pain, shortness of breath, bleeding, nausea or vomiting, chest pain, or any unexpected problems, contact your Primary Care Provider. Call [facility] ([phone]) or report to the closest Emergency Room. Call 911 if necessary. 08/08/18 0933 <Electronically signed by Justin Combs MD> Date Justin Combs MD Cosigner Signature (If Indicated): Date CC: Donald Coleman MD DISCHARGE SUMMARY Observed: 07/15/2018 Status: F Source: [place] 1:[address] [facility] REPOSITORY [facility] Medical Records Department [address] [place] [address] Discharge Summary 07/15/18 1319 MR#: [id number] Acct: [id number] Name: AMADO DELVALLE Rep #: [id number] : 1990 27 From: Laya Meraz MD PCP: Donald Coleman MD Status: ADM IN Y Location: [place] [id number] Discharge Date and Diagnosis - Problem List Patient Problems: Active and Suspected Problems Opioid withdrawal delirium, acute, hyperactive (Acute) Cocaine abuse (Acute) Nicotine dependence (Acute) Benzodiazepine use (Acute) Date of Admission: 07/12/18 Date of Discharge: 07/15/18 - Primary Discharge Diagnosis Active and Suspected Problems acute opioid withdrawal admitted for medical stabilization. - Secondary Discharge Diagnosis Chronic Problems Polysubstance abuse (Chronic) Hospital Course and Treatment Operations: None Procedures: None Summary of Care Provided: Patient seen and examined on the day of discharge and appeared to be stable to be discharged home. His symptoms of withdrawal continue to improve and is feeling better. His vital signs are stable. The patient is a 27 year old M presented to the emergency department requesting admission for acute opioid withdrawal for medical stabilization. Patient has been using different drugs including IV heroin, fentanyl, snorts the cocaine and uses occasional Xanax. He was treated with [facility] protocol with tapering course of Subutex, as needed Librium, Catapres, Bentyl, Vistaril, methocarbamol, Mirapex, trazodone and Zofran. His routine blood work was unremarkable. LFT revealed slightly elevated liver transaminases, normal alkaline phosphatase. Lipase was normal. His urine drug screen was positive for opioids, amphetamines and cocaine. Initially, there was a concern that he may have acute cystitis for which she was treated with IV Rocephin empirically. Patient remained without symptoms, remained afebrile. Urine culture showed no growth. IV Rocephin discontinued. With above-mentioned treatment, patient symptoms improved. Patient discharged home in a stable medical condition, recommended follow-up with PCP in 2-4 weeks, follow-up with [facility] as requested, recommended follow-up or referral to infectious disease regarding chronic hepatitis C. Patient Problems: Active and Suspected Problems Opioid withdrawal delirium, acute, hyperactive (Acute) Cocaine abuse (Acute) Nicotine dependence (Acute) Benzodiazepine use (Acute) - Physical Exam General: Alert, Oriented x3, Cooperative, No apparent distress HEENT: Atraumatic, PERRLA, EOMI Neck: Supple, No JVD, Negative Carotid Bruits, Trachea Midline, Thyroid Normal Size and Texture Lungs: Clear to auscultation, Normal air movement, No rhonchi, No wheeze, No rales Cardiovascular: Regular rate, Regular Rhythm, Normal S1, Normal S2 Abdomen: Bowel Sounds Present, Soft, Non Tender, Non-Distended, No Hepato-splenomegaly Extremities: No clubbing, No cyanosis, No edema Skin: No rashes, No breakdown Lymphatic: No Cervical, Supraclavicular, or Inguinal Adenopathy Neurological: Cranial nerves II-XII grossly intact, Neuro grossly intact Psych/Mental Status: Normal Affect, Appropriate Vital Signs Temp Pulse Resp BP Pulse Ox 98.5 F 64 18 121/61 H 97 07/15/18 10:00 07/15/18 10:00 07/15/18 10:00 07/15/18 10:00 07/15/18 03:05 Oxygen Delivery Method Room Air Weight: 172 lb 13.478 oz Body Mass Index (BMI) 27.1 Intake and Output for Last 24 Hours Intake Total 1450 / 1450 2400 / 2400 1000 / 1000 Balance 1450 / 1450 2400 / 2400 1000 / 1000 Microbiology Past 72 Hours 07/12/18 21:24 Urine Culture - Final Urine, Clean Catch Culture exhibits no growth. Discharge Activity: Return to Normal Activity Weight Bearing Status: Full weight bearing Call your doctor if you observe: Fever of 101 or Higher, Shortness of breath, Dizziness, Fainting spells, Chest pain, Increased palpitations (irregular heartbeat), Uncontrolled pain Home Medications: Medications to take at Discharge NK 07/12/18 Primary Care Physician: Remington Coleman MD [Primary Care Provider] - Please follow up with your Primary Care Physician in: 2-4 weeks. Disposition: Home Minutes spent on discharge:: 24 Patient Condition:: Stable Medical Necessity - Tobacco Use Smoking Status: Current every day smoker Tobacco Use: Cigarettes Meaningful Use Info Meaningful Use Diagnoses (Choose all that apply): None applicable Code Visit Inpatient E AND M: 06453 Disch Hosp 07/15/18 1324 <Electronically signed by Laya Meraz MD> Date Laya Meraz MD Cosigner Signature (if applicable): Date CC: Donald Coleman MD; Laya Meraz Signed DISCHARGE INSTRUCTION Observed: 07/15/2018 Status: F Source: [place] 8:[address] [facility] REPOSITORY [facility] Medical Records Department [address] [place] [address] Instructions for Home/Discharge Instructions 07/15/18 0833 MR#: [id number] Acct: [id number] Name: AMADO DELVALLE Rep #: [id number] : 1990 27 From: Laya Meraz MD PCP: Donald Coleman MD Status: ADM IN - Discharge Diagnoses Current Active Problems: Current Active and Chronic Problems Opioid withdrawal delirium, acute, hyperactive (Acute) Cocaine abuse (Acute) Nicotine dependence (Acute) Benzodiazepine use (Acute) You will use the following diet at home:: Regular Your food should be the consistency of: Regular Discharge Activity: Return to Normal Activity Weight Bearing Status: Full weight bearing Call your doctor if you observe: Fever of 101 or Higher, Shortness of breath, Dizziness, Fainting spells, Chest pain, Increased palpitations (irregular heartbeat), Uncontrolled pain Allergies/Adverse Reactions: Allergies No Known Allergies Allergy (Verified 07/12/18 20:13) Medications to take at Discharge NK 07/12/18 Primary Care Physician: Rmeington Coleman MD [Primary Care Provider] - Please follow up with your Primary Care Physician in: 2-4 weeks. Test Results: Test results from this visit will be discussed in further detail at your follow-up appointment, if applicable. 07/15/18 0835 <Electronically signed by Laya Meraz MD> Date Laya Meraz MD CC: Donald Coleman MD HISTORY AND PHYSICAL Observed: 07/12/2018 Status: F Source: [place] EXAM 10:[address] [facility] REPOSITORY [facility] Medical Records Department [address] [place] [address] History and Physical 07/12/18 2203 MR#: [id number] Acct: [id number] Name: AMADO DELVALLE Rep #: [id number] : 1990 27 From: Benjamin Zaidi MD PCP: Donald Coleman MD Status: REG ER Y Location: ED Problem List (1) Opioid withdrawal delirium, acute, hyperactive Status: Acute (2) Cocaine abuse Status: Acute (3) Nicotine dependence Status: Acute (4) Benzodiazepine use Status: Acute History of Present Illness Date of Admission: 07/12/18 Chief Complaint: Polysubstance use and withdrawal The patient is a 27 year old M with history of polysubstance use and dependence including IV heroin, fentanyl, he snorts cocaine, smokes cigarette and occasional Xanax came to ER for withdrawal symptoms related to opioids. Patient having mild tremors, skin flush, sensation of crawling under her skin, abdominal cramps, anxiety and restlessness. Patient had left antecubital abscess I and D done in 2012. Patient claims that it was done by Dr. Schmitz. Patient had multiple ER visits and also had right antecubital abscess for which she was seen in ER April 2014. He denies history of severe sepsis, septic shock or infective endocarditis. He usually has half to 1 g IV heroin and mixed with his fentanyl, last use was 5 hours ago. JAE a score in ER 11. Opioid use is started at the age of 15 with oxycodone which progressed to IV heroin use at the age of 18. He was sober for 2 and half years and then relapsed in May 2018. He also uses a speedball. He snorts cocaine, last used today. He also uses Xanax 1-2 tablets of 1 mg occasionally, last use was about 5-6 days ago. He consistently smokes cigarettes 1-1-1/2 pack daily since age of 13. [] Past Medical History Past Medical History (Chronic Problems): Chronic Problems Polysubstance abuse (Chronic) Allergies No Known Allergies Allergy (Verified 07/12/18 20:13) Home Medications: Ambulatory Orders Medication Instructions Recorded NK 07/12/18 Surgical History: T+A Smoking Status: Current every day smoker Review of Systems Constitutional: Denies: Chills, Fever, Weight Change Eyes: Denies: Blurred vision, Double vision HEENT: Denies: Head Aches, Sinus Congestion, Sinus Drainage Cardiovascular: Denies: Chest Pain, Palpitations Respiratory: Denies: Cough, Shortness of breath at rest, Sputum production Gastrointestinal: Reports: Abdominal Pain, Nausea. Denies: Vomiting Genitourinary: Denies: Dysuria, Frequency, Hematuria, Hesitancy, Incontinence, Nocturia, Retention, Urgency Musculoskeletal: Denies: Joint Pain, Joint Tenderness Skin: Denies: Rash, Wounds Neurological: Denies: Numbness, Tingling, Focal weakness Psychiatric: Reports: Anxiety, Depression. Denies: Homicidal Ideations, Suicidal Ideations Hematologic/ Lymphatic: Denies: Easy Bruising, Easy Bleeding VTE Information - Inpt Only VTE Present on Admission: No VTE Mechan Device Prophylaxis: None VTE Pharm Prophylaxis ordered?: No Reason prophylaxis not ordered:: Procedure Not Indicated - Low risk Patient Problems: Active and Suspected Problems Opioid withdrawal delirium, acute, hyperactive (Acute) Cocaine abuse (Acute) Nicotine dependence (Acute) Benzodiazepine use (Acute) - Physical Exam General: Alert, Oriented x3, Cooperative HEENT: Atraumatic, PERRLA, EOMI, Normocephalic Neck: Supple, No JVD, Negative Carotid Bruits Lungs: Clear to auscultation, Normal air movement Cardiovascular: Regular rate, Regular Rhythm, Normal S1, Normal S2, No murmurs Abdomen: Bowel Sounds Present, Soft, Non Tender, Non-Distended Extremities: No edema, Capillary Refill Less than 3 Seconds, - - Scar riccardo of left antecubital region of previous incision and drainage Skin: No rashes, No breakdown, - - A skin track house present in both upper extremities Musculoskeletal: No Tenderness to Palpation of Joints or Extremities Neurological: Cranial nerves II-XII grossly intact, Deep Tendon Reflexes 2+/4 and Symmetrical, Neuro grossly intact, Motor Exam 5/5 strength throughout Psych/Mental Status: Anxious, Restless Vital Signs Temp Pulse Resp BP Pulse Ox 97.4 F L 91 16 112/74 96 07/12/18 20:11 07/12/18 20:11 07/12/18 20:11 07/12/18 20:11 07/12/18 20:11 Oxygen Delivery Method Room Air Weight: 172 lb 13.478 oz Body Mass Index (BMI) 27.1 Laboratory Tests Past 24 Hrs Assessment/Plan All Active Problems Opioid withdrawal delirium, acute, hyperactive (Acute) Cocaine abuse (Acute) Nicotine dependence (Acute) Benzodiazepine use (Acute) The patient is a 27 year old M with history of polysubstance use and dependence including IV heroin, fentanyl, he snorts cocaine, smokes cigarette and occasional Xanax came to ER for withdrawal symptoms related to opioids. Patient having mild tremors, skin flush, sensation of crawling under her skin, abdominal cramps, anxiety and restlessness. Patient had left antecubital abscess I and D done in 2012. Patient claims that it was done by Dr. Schmitz. Patient had multiple ER visits and also had right antecubital abscess for which she was seen in ER April 2014. He denies history of severe sepsis, septic shock or infective endocarditis. He usually has half to 1 g IV heroin and mixed with his fentanyl, last use was 5 hours ago. JAE a score in ER 11. Opioid use is started at the age of 15 with oxycodone which progressed to IV heroin use at the age of 18. He was sober for 2 and half years and then relapsed in May 2018. He also uses a speedball. He snorts cocaine, last used today. He also uses Xanax 1-2 tablets of 1 mg occasionally, last use was about 5-6 days ago. He consistently smokes cigarettes 1-1-1/2 pack daily since age of 13. 1. Opioids use with IV heroin, fentanyl, oxycodone with dependence and acute withdrawal: Patient is being admitted on regular MedSurg floor for medical stabilization of opioid withdrawal symptoms. Patient started on Librium and buprenorphine taper later. Order set for medical stabilization was put in. 2. Crack cocaine use and dependence: Patient was counseled to stop cocaine use. 3. Occasional use of benzodiazepines use and dependence: Patient does not seem to be in benzodiazepine withdrawal now but needs to be watched for. 4. Pyuria in U/A with suspicion of UTI: Patient does not have lower urinary tract symptoms including burning micturition, increased frequency, urgency, obstructive symptoms. Patient had history of stone and claims he passed it about 3-4 months ago. UA shows WBC 5-10 cells, bacteria 1+, nitrite negative. Empirically started on IV ceftriaxone. Urine culture ordered. 5. chronic hepatitis C: Patient used to follow with ID Dr. horn in 2014. Hepatitis C genotype 2, HCV RNA quantitative 74,760 IU. Needs further evaluation and management as an outpatient. 6. DVT prophylaxis: Low risk no prophylaxis indicated. Early ambulation encouraged Code Visit Inpatient E AND M: [id number] Init Hosp L3 07/12/18 223 <Electronically signed by Benjamin Zaidi MD> Date Benjamin Zaidi MD Cosigner Signature: Date (if applicable) CC: Donald Coleman MD; Benjamin Zaidi MD Signed EMERGENCY DEPARTMENT Observed: 07/12/2018 Status: F Source: [place] SUMMARY 10:[address] [facility] REPOSITORY [facility] Medical Records Department [address] [place] [address] Emergency Department Summary 07/12/18 2100 MR#: [id number] Acct: [id number] Name: AMADO DELVALLE Rep #: [id number] : 1990 27 From: Ronel Todd MD PCP: Donald Coleman MD Status: REG ER - ER Visit Summary Date of Service: 07/12/18 Chief Complaint: Wants detox History of Present Illness: The patient is a 27 M presenting stating that he wants detox. He uses fentanyl and heroin IV. He uses 1/2-1 g/day. His last detox was in 2014. He states he was sober for 2-1/2 years. He relapsed in May 2018. He denies alcohol use. He smokes cigarettes. He has a history of hep C. He has had nausea vomiting. Last use was 5 hours ago. Physical Examination: Vitals are stable. Patient is afebrile. Alert no acute distress. HEENT exam is unremarkable. Neck is supple. Lungs are clear and equal bilaterally. Heart is regular rate and rhythm. Abdomen is soft nontender nondistended. Extremities are unremarkable. Skin is warm and dry. No focal neurologic deficit. Remainder of exam is unremarkable. Emergency Department Course and Treatment: CINA score is 13. CBC shows white count 11.6. Chemistries unremarkable. ALT 119. AST 56. Lipase 57. INR 1.0. Urine is contaminated with 5-10 epithelial cells. Tox screen shows opiates, amphetamine, cocaine. Alcohol is negative. Discussed with the hospitalist for admission. Disposition: Admission Impression: Opiate dependence This note was generated with Dextrys dictation software. It may contain incorrect words, spelling, and punctuation that were not noted in review of the chart prior to signing ED Disposition - Plan for ED Patient: Chief Complaint: Substance Abuse Referrals: Remington Coleman MD [Primary Care Provider] - What to do if you have Problems For any increased pain, shortness of breath, bleeding, nausea or vomiting, chest pain, or any unexpected problems, contact your Primary Care Provider. Call [facility] ([phone]) or report to the closest Emergency Room. Call 911 if necessary. 07/12/18 9458 <Electronically signed by Ronel Todd MD> Date Ronel Todd MD Cosigner Signature (If Indicated): Date CC: Donald Coleman MD URINE DRUG SCREEN Collected: 07/12/2018 Status: F Source: [place] [facility] 9:[address] [facility] REPOSITORY TYPE CODE TESTS RESULT OUT OF RANGE REFERENCE UNITS LAB L505.0075 TO BE Normal CONFIRMED Result Comment: CONFIRMATORY TESTING FOR ALL POSITIVE URINE DRUG SCREEN RESULTS WILL ONLY BE SENT OUT UPON PHYSICIAN ORDER. [facility]IST[facility] Urine Drug Screen methods provide only preliminary analytical test results. A more specific alternate chemical method must be used in order to obtain a confirmed analytical result. Gas chromatography/mass spectrometery (GC/MS) is the preferred confirmatory method. Clinical consideration and professional judgement should be applied to any drug of abuse test result, particularly when preliminary positive results are used. URINE TCA TESTING MUST BE ORDERED SEPARATELY. USE TEST MNEMONIC: [facility] LAB L505.5005 VISTA UDS PH 5 Normal LAB L505.5015 <1000 High ng/mL AMPHETAMINES POSITIVE LAB L505.5025 < 200 ng/mL BARBITIURATES Normal NEGATIVE LAB L505.5035 < 200 ng/mL BENZODIAZIPINE Normal NEGATIVE LAB L505.5045 < 300 High ng/mL COCAINE POSITIVE LAB L505.5055 < 500 ng/mL ECSTACY Normal NEGATIVE LAB L505.5065 < 300 ng/mL METHADONE Normal NEGATIVE LAB L505.5075 < 300 High ng/mL OPIATES POSITIVE LAB L505.5085 < 25 ng/mL PCP Normal NEGATIVE LAB L505.5095 < 50 ng/mL THC Normal NEGATIVE Performed By: #### L505.5000 #### [facility] [address] [place], [place], [address] CBC W/DIFF, AUTOMATED Collected: 07/12/2018 Status: F Source: [place] 9:[address] [facility] REPOSITORY TYPE CODE TESTS RESULT OUT OF RANGE REFERENCE UNITS LAB L100.1000 4.4-11.0 K/mm3 High WBC 11.6 LAB L100.1200 4.6-6.2 M/mm3 Normal RBC 5.05 LAB L100.1300 13.0-16.5 g/dl Normal HGB 15.4 LAB L100.1400 40-54 % Normal HCT 46.1 LAB L100.1500 80-94 fL Normal MCV 91.3 LAB L100.1600 27.0-32.0 pg Normal MCH 30.5 LAB L100.1700 32-36 g/gl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 BY: RT Jazmín February 13, 2018 2:08 PM CNOV Observed: 02/13/2018 Status: COMPLETED Source: [place] 1:30 PM [facility] REPOSITORY Office Visit (WSTR) AMADO DELVALLE ([id number]) 1990 M Date Time Provider Department 02/13/18 1:30 PM MADDIE STRICKLAND [facility] During your visit today, we recorded the following information about you: Temperature Pulse Respiration Blood pressure 97.1 degrees 60/minute 16/minute 122/70 Weight 86.8 kg Maddie Strickland APRN.MAKEUP ARTIST 02/13/2018 3:44 PM Signed Subjective HPI Pt presents with c/o right foot pain and swelling x 1 day. States dropped a cedar chest on top of foot yesterday. Has not taken any OTC medications or applied ice/heat. Went to work right after injury occurred which increased pain. Is able to bear weight and walk but is painful. Denies sensory changes. Review of Systems Constitutional: Negative for chills and fever. Objective Physical Exam Constitutional: He is oriented to person, place, and time and well-developed, well-nourished, and in no distress. No distress. Musculoskeletal: Right foot: There is tenderness, bony tenderness and swelling. There is normal range of motion, normal capillary refill, no crepitus, no deformity and no laceration. Feet: Full active ROM against resistance with c/o discomfort. Moderate edema and tenderness to area noted. No wounds. Cap refill 2 sec. Pedal pulses 2+. Mildly altered gait. Neurological: He is alert and oriented to person, place, and time. Skin: Skin is warm and dry. He is not diaphoretic. BP 122/70 Pulse 60 Temp 36.2 ?C (97.1 ?F) (Tympanic) Resp 16 Wt 86.8 kg (191 lb 6.4 oz) .Patient presents with: right foot pain: x 1 day-dropped something on foot and it is bruised and swollen No past medical history on file. No past surgical history on file. ALLERGIES Patient has no known allergies. MEDICATIONS diclofenac potassium (CATAFLAM) 50 mg tablet Take 1 tablet by mouth three times daily for 7 days. Take with food. No family history on file. Social History Substance Use Topics - Smoking status: Current Every Day Smoker - Smokeless tobacco: Never Used - Alcohol use Not on file ASSESSMENT/PLAN: 1. Injury of right foot, initial encounter - ICD9: 959.7, ICD10: S99.921A (primary diagnosis) - XR FOOT SPECIAL VIEWS 4V AP/LAT/OBL/OTHER RT No acute fracture. Post op shoe applied. Encouraged application of heat and elevation. 2. Foot pain, right - ICD9: 729.5, ICD10: M79.671 - DICLOFENAC POTASSIUM 50 MG TABLET The patient is instructed to return or seek emergency treatment if symptoms become worse or with any acute change in condition. The patient verbalizes understanding and is in agreement with plan of care. Maddie Strickland CNP Referring Provider: SELF [[id number]] Allergies As of Date: 02/13/2018 (No Known Allergies) Date Reviewed: 02/13/2018 Reviewed by: Ju Gillette LPN - Fully Assessed Reason for Visit: right foot pain [Other] Cmt: x 1 day-dropped something on foot and it is bruised and swollen Primary Visit Diagnosis:Injury of right foot, initial encounter [S99.921A] Other Visit Diagnosis:Foot pain, right [M79.671] Order(s):XR FOOT SPECIAL VIEWS 4V AP/LAT/OBL/OTHER RT [3720085] Order #: [id number] FUTURE diclofenac potassium (CATAFLAM) 50 mg tabletTake 1 tablet by mouth three times daily for 7 days. Take with food.Disp: 21 tabletRfl: 0 Prescriptions as of 02/13/2018 Sig: DICLOFENAC POTASSIUM 50 MG TA* Take 1 tablet by mouth three * Problem List As Of Date: 02/13/2018 (None) Prescriptions ordered this encounter Disp Refills Start End DICLOFENAC POTASSIUM 50 MG TABLET 21 t* 0 02/13/2018 02/20/2018 Route: ORAL Sig: Take 1 tablet by mouth three times daily for 7 days. Take with food. Letter Text Maddie Strickland APRN.[facility] [address] [facility] [address] Dept: [phone] 02/13/2018 Amado Delvalle [address] [id number] To Whom it May Concern: This is to certify that Amado Delvalle was seen at our office for medical care. If you have any questions please feel free to call. Sincerely: Maddie Strickland APRN.CNP Encounter Status:Closed by MADDIE STRICKLAND CNP on 02/13/18 CBC W/DIFF, AUTOMATED Collected: 11/11/2017 Status: F Source: [place] 2:[address] [facility] REPOSITORY Order Comment: Order Date: 11/11/17 Order Info: 0184-1 - CBCD Order Info: 13534-7 - SED TYPE CODE TESTS RESULT OUT OF RANGE REFERENCE UNITS LAB L100.1000 4.4-11.0 K/mm3 Normal WBC 9.7 LAB L100.1200 4.6-6.2 M/mm3 Normal RBC 5.43 LAB L100.1300 13.0-16.5 g/dl High HGB 16.7 LAB L100.1400 40-54 % Normal HCT 48.2 LAB L100.1500 80-94 fL Normal MCV 88.8 LAB L100.1600 27.0-32.0 pg Normal MCH 30.8 LAB L100.1700 32-36 g/gl Normal MCHC 34.6 LAB L100.1810 11.6-14.6 % Normal RDW CV 12.4 LAB L100.1820 35.1-43.9 fl Normal RDW SD 40.6 LAB L100.1900 150-450 K/mm3 Normal PLT 216 LAB L100.2000 6.2-12.0 fl Normal MPV 11.9 LAB L100.2100 47-70 % Normal NEUT% 61.7 LAB L100.2200 19-41 % Normal LY% 27.0 LAB L100.2300 0-10 % Normal MONO% 9.2 LAB L100.2400 0-5 % Normal EO% 1.7 LAB L100.2500 0-1 % Normal BASO% 0.2 LAB L100.2550 0.0-0.9 % Normal IM GRAN % 0.200 Result Comment: IG% - Immature Granulocytes (promyelocytes, myelocytes and metamyelocytes) > 1% indicates that a LEFT SHIFT is Present. LAB L100.2620 2.0-7.7 X10 3/uL Normal Absolute Neut 6.0 LAB L100.2720 0.83-4.51 X10 3/ul Normal Absolute Lymph 2.63 Performed By: #### L100.0100, L500.4050, L501.2400, L501.2450, L101.9900 #### [facility] [place], [address] COMPREHENSIVE METABOLIC Collected: 11/11/2017 Status: F Source: [place] 2:[address] [facility] REPOSITORY Order Comment: Order Date: 11/11/17 Order Info: [id number] - CMP Order Info: 1798-8 - DIANE Order Info: 3040-3 - LIPASE TYPE CODE TESTS RESULT OUT OF RANGE REFERENCE UNITS LAB L501.0100 74-106 mg/dL Normal GLU 79 Result Comment: Please note revised GLUCOSE reference range effective 2017. LAB L501.1000 7-18 mg/dL Normal BUN 12 LAB L501.1100 0.70-1.30 mg/dL Normal CREAT,SERUM 0.84 Result Comment: The validity of the calculated GFR AND GFRAA in patients over 70 years has not been determined. Clinical correlation is essential. LAB L501.1110 >60 mL/min Normal EST GFR 117 Result Comment: Non- GFR Calc LAB L501.1115 >60 mL/min Normal EST GFR - AA 141 Result Comment: GFR Calc LAB L501.1300 10-20 RATIO Normal BUN/CRE 14.3 LAB L501.1500 6.4-8.2 g/dL High T PROT 8.4 LAB L501.1800 3.2-5.0 g/dL Normal ALB 4.4 LAB L501.1950 2.2-4.2 g/dL Normal GLOB 4.0 LAB L501.2000 0.9-2.4 RATIO Normal A/G 1.1 LAB L501.2200 8.5-10.1 mg/dL CA Normal 9.1 LAB L501.4100 15-37 U/L High AST 82 LAB L501.4305 45-117 U/L Normal ALK P 104 LAB L501.4405 16-61 U/L High ALT 186 Result Comment: Please note revised ALT reference range effective 2017. LAB L501.4600 0.20-1.00 mg/dL Normal T BILI 0.70 LAB L501.5300 136-145 mmol/L Normal NA 137 LAB L501.5600 3.5-5.1 mmol/L Normal K 3.5 LAB L501.5900 98-107 mmol/L Normal CL 102 LAB L501.6100 21.0-32.0 mmol/L Normal CO2 26.0 LAB L501.6200 5-15 Normal GAP 9 Performed By: #### L100.0100, L500.4050, L501.2400, L501.2450, L101.9900 #### [facility] [address] [place], [place], [address] AMYLASE Collected: 11/11/2017 Status: F Source: [place] 2:[address] [facility] REPOSITORY Order Comment: Order Date: 11/11/17 Order Info: [id number] - CMP Order Info: 1798-8 - DIANE Order Info: 3040-3 - LIPASE TYPE CODE TESTS RESULT OUT OF RANGE REFERENCE UNITS LAB L501.2400 25-115 U/L Normal DIANE 31 Performed By: #### L100.0100, L500.4050, L501.2400, L501.2450, L101.9900 #### [facility] [address] [place], [place], [address] LIPASE Collected: 11/11/2017 Status: F Source: [place] 2:[address] [facility] REPOSITORY Order Comment: Order Date: 11/11/17 Order Info: [id number] - CMP Order Info: 1798-8 - DIANE Order Info: 3040-3 - LIPASE TYPE CODE TESTS RESULT OUT OF RANGE REFERENCE UNITS LAB L501.2450 73-393 U/L Normal LIPASE 86 Performed By: #### L100.0100, L500.4050, L501.2400, L501.2450, L101.9900 #### [facility] [address] [facility] [place], [place], [address] ERYTHROCYTE SED RATE Collected: 11/11/2017 Status: F Source: [place] 2:[address] [facility] REPOSITORY Order Comment: Order Date: 11/11/17 Order Info: 0184-1 - CBCD Order Info: 94878-6 - SED TYPE CODE TESTS RESULT OUT OF RANGE REFERENCE UNITS LAB L102.0000 0-15 mm/hr High SED RATE 17 Performed By: #### L100.0100, L500.4050, L501.2400, L501.2450, L101.9900 #### [facility] [address] [place], [address] CRP Collected: 11/11/2017 Status: F Source: [place] 2:[address] [facility] REPOSITORY Order Comment: Order Date: 11/11/17 Order Info: [id number] - CMP Order Info: 1798-8 - DIANE Order Info: 3040-3 - LIPASE TYPE CODE TESTS RESULT OUT OF RANGE REFERENCE UNITS LAB L501.6710 0.0-3.0 mg/L Normal < 2.90 C-REACTIVE PROT Result Comment: C-Reactive Protein (CRP) provides useful information for the diagnosis, therapy and monitoring of inflammatory processes and associated diseases. For the evaluation of Relative Risk for Cardiovascular Disease, a High Sensitivity CRP (HSCRP) should be ordered. Performed By: #### L501.6710 #### [facility] [address] [place], [address] CT MAXILLOFACIAL W/O Observed: 11/06/2017 Status: F Source: [place] CONTRAST 1:41 AM [facility] REPOSITORY ORIGINAL CT MAXILLOFACIAL W/O CONTRAST CLINICAL STATEMENT: Left facial swelling. TECHNIQUE: Multiple-row detector helical CT examination of the facial bones without IV contrast. Axial, sagittal, and coronal reconstructed images. This exam was performed according to our departmental dose optimization program, and includes the following measures where applicable: automated exposure control, adjustment of the mAs and/or kVp according to patient size and/or exam, and an iterative reconstruction algorithm. COMPARISON: None. FINDINGS: There is focal erosion of the left mandible at the root of the left second premolar. There is adjacent inflammatory soft tissue swelling lateral to the left mandible that measures 3.6 cm AP by a 3.0 cm cephalocaudal x 1.7 cm transverse. A discrete drainable fluid collection has not yet developed. There is superficial inflammation in the subcutaneous fat. No lymphadenopathy has developed. Submandibular glands and parotid glands are normal. There is a 1.7 cm retention cyst in the left maxillary sinus but no acute maxillary sinusitis. The left sphenoid sinus is opacified consistent with sinusitis. The globes demonstrate no acute traumatic abnormality. The extraocular muscles, intraconal fat, and extraconal fat are within normal limits. No lesion of the visualized skull base or calvarium is present. The tympanomastoid cavities are unopacified. IMPRESSION: Erosion of left mandible at the root of the left second premolar consistent with root abscess, with soft tissue extension of inflammation lateral to the left mandible. Discrete soft tissue abscess is not developed. Left sphenoid sinusitis. Interpreted By: Jamel Trevizo MD Preliminary Report By: Jamel Trevizo MD Electronically Signed By: Jamel Trevizo MD Dictated Date: 11/06/2017 1:48:10 AM Prelim Date: 11/06/2017 1:48:10 AM Sign Date: 11/06/2017 1:56:14 AM EMERGENCY DEPARTMENT Observed: 11/05/2017 Status: F Source: [place] SUMMARY 7:[address] [facility] REPOSITORY [facility] Medical Records Department [address] [place] [address] Emergency Department Summary 11/05/17 0423 MR#: [id number] Acct: [id number] Name: AMADO DELVALLE Rep #: [id number] : 1990 27 From: Gregory Infante MD PCP: Donald Coleman MD Status: DEP ER - ER Visit Summary Date of Service: 11/05/17 Chief Complaint: Facial swelling History of Present Illness: The patient is a [address] Brink and [facility]. He reports that he has swelling to the left side of his face that began months ago. It increased today after he scores the area and felt a crunch. Complains of a throbbing pain is 10 out of 10 severity. Is worsened by eating. It is unrelieved by ibuprofen. Patient reports that he finished penicillin 12 days ago. He began Keflex 4 days ago. This does not seem to be helping. He has had subjective fever and chills. Physical Examination: Vitals: Stable. Afebrile. Mouth: No trismus. No edema of the floor of the mouth. Widespread dental decay. No pain with percussion of his teeth. The soft tissue swelling is really more in the area of the parotid duct. I am unable to express any saliva from Stensen's duct. General: A AND O x 3. NAD. Cardiovascular exam: Regular rate and rhythm, no murmur, rub or gallop. Respiratory exam: Clear to auscultation bilaterally. No wheezes or stridor. Abdominal exam: Soft, nontender, nondistended, normal bowel sounds. No peritoneal signs. Extremity: No clubbing, cyanosis, or edema. Emergency Department Course and Treatment: Patient had an IV placed. Is given dose of clindamycin and morphine IV. I had a prolonged discussion about this and that I do not think that attempting to drain this is in his best interest. I suspect that it is more of a parotid duct stone than an abscess. Treatment Plan: Patient will be discharged instructions to take the clindamycin he was previously prescribed. 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 Instructed to use Tylenol and ibuprofen for pain. Use lemon drops to help with possible obstruction of his parotid duct. Follow-up Dr. Haney in 3-5 days if not improving. Return to the emergency department for any worsening symptoms. Disposition: To home in improved and stable condition. Impression: 1. Parotitis on the left. This note was generated with [employer] dictation software. It may contain incorrect words, spelling, and punctuation that were not noted in review of the chart prior to signing ED Disposition - Plan for ED Patient: Disposition: Home or Assisted Living Chief Complaint: Dental Instructions: ED Sublingual Gland Obstruction Referrals: Remington Haney MD [STAFF PHYSICIAN] - 3-5 Days if not improving What to do if you have Problems For any increased pain, shortness of breath, bleeding, nausea or vomiting, chest pain, or any unexpected problems, contact your Primary Care Provider. Call [facility] ([phone]) or report to the closest Emergency Room. Call 911 if necessary. 11/05/17 0733 <Electronically signed by Gregory Infante MD> Date Gregory Infante MD Cosigner Signature (If Indicated): Date CC: Donald Coleman MD EMERGENCY DEPARTMENT Observed: 10/10/2017 Status: F Source: [place] SUMMARY 5:[address] [facility] REPOSITORY [facility] Medical Records Department [address] [place] [address] Emergency Department Summary 10/10/17 1011 MR#: [id number] Acct: [id number] Name: AMADO DELVALLE Rep #: [id number] : 1990 27 From: Fredy Tejada MD PCP: Donald Coleman MD Status: DEP ER - ER Visit Summary Date of Service: 10/10/17 Chief Complaint: Left flank pain History of Present Illness: The patient is a 27 M 3 prior kidney stones and prior heroin abuse. Patient states he has been sober for 2 years. He started having left flank pain sudden onset around 3 AM this morning. He did urinate and noticed a small stone in the past. He is still having pain. Also associated nausea and vomiting. No fever. This is very similar to his prior kidney stone presentations. Physical Examination: Young male complaining of flank pain. Vital signs are stable afebrile. He does not look septic or toxic. H EENT exam is normal. Neck is nontender. Lungs are clear to auscultation bilaterally. Heart is regular rate and rhythm no murmur. Abdomen is soft and nontender. Normal bowel sounds no peritoneal signs. He is moving all 4 extremities. They are neurovascularly intact. Back exam is nontender. No CVA tenderness. Test Results: The flank without contrast shows bilateral renal stones but no acute ureteral calculi. No obstruction. I reviewed the film it was read by the radiologist. UA shows a small amount of blood but no signs of infection. When the patient did urinate a small stone was passed with the urine. Emergency Department Course and Treatment: Acute left flank pain with a history of kidney stones. Patient be treated with IV Toradol, IV fluids and Zofran. Because of his prior history of heroin abuse I am going to try to not use any type of narcotic. The patient I have already discussed that. Treatment Plan: Repeat exam he is doing much better at 1140. He will be discharged to home. Toradol for pain. Disposition: discharge Impression: Acute left flank pain secondary to acute left kidney stone now passed This note was generated with [employer] dictation software. It may contain incorrect words, spelling, and punctuation that were not noted in review of the chart prior to signing ED Disposition - Plan for ED Patient: Disposition: Home or Assisted Living Chief Complaint: Flank Pain Instructions: ED Stone Renal Passed Prescriptions: Ketorolac [Toradol] 10 mg PO Q4H #10 tab Referrals: Remington Coleman MD [Primary Care Provider] - As Needed Additional Instructions: Toradol or Motrin for pain. Do not use both. Fluids and rest. The ER if intractable pain, intractable vomiting or feeling worse. What to do if you have Problems For any increased pain, shortness of breath, bleeding, nausea or vomiting, chest pain, or any unexpected problems, contact your Primary Care Provider. Call [employer] [facility] ([phone]) or report to the closest Emergency Room. Call 911 if necessary. 10/10/17 1700 <Electronically signed by Fredy Tejada MD> Date Fred[facility] Tejada MD [facility] Signature (If Indicated): Date CC: Donald Coleman MD DISCHARGE INSTRUCTION Observed: 10/10/2017 Status: F Source: [place] 5:[address] [facility] REPOSITORY [facility] Medical Records Department [address] [place] [address] Discharge Instruction 10/10/17 1013 MR#: [id number] Acct: [id number] Name: ADELIAAMADO Margie Rep #: [id number] : 1990 27 From: Fredy Tejada MD PCP: Donald Coleman MD Status: [facility] ER ED Disposition - Plan for ED Patient: Disposition: Home or Assisted Living Chief Complaint: Flank Pain Instructions: ED Stone Renal Passed Prescriptions: Ketorolac [Toradol] 10 mg PO Q4H #10 tab Referrals: Remington Coleman MD [Primary Care Provider] - As Needed Additional Instructions: Toradol or Motrin for pain. Do not use both. Fluids and rest. The ER if intractable pain, intractable vomiting or feeling worse. What to do if you have Problems For any increased pain, shortness of breath, bleeding, nausea or vomiting, chest pain, or any unexpected problems, contact your Primary Care Provider. Call [facility] ([phone]) or report to the closest Emergency Room. Call 911 if necessary. 10/10/17 1700 <Electronically signed by Fredy Tejada MD> Date Fredy Tejada MD Cosigner Signature (If Indicated): Date CC: Donald Coleman MD DISCHARGE INSTRUCTION Observed: 10/10/2017 Status: F Source: [place] 5:[address] [facility] REPOSITORY [facility] Medical Records Department [address] [place] [address] Discharge Instruction 10/10/17 1146 MR#: [id number] Acct: [id number] Name: AMADO DELVALLE Rep #: [id number] : 1990 27 From: Fredy Tejada MD PCP: Donald Coleman MD Status: DEP ER ED Disposition - Plan for ED Patient: Disposition: Home or Assisted Living Chief Complaint: Flank Pain Instructions: ED Stone Renal Passed Prescriptions: Ketorolac [Toradol] 10 mg PO Q4H #10 tab Referrals: Remington Coleman MD [Primary Care Provider] - As Needed Additional Instructions: Toradol or Motrin for pain. Do not use both. Fluids and rest. The ER if intractable pain, intractable vomiting or feeling worse. What to do if you have Problems For any increased pain, shortness of breath, bleeding, nausea or vomiting, chest pain, or any unexpected problems, contact your Primary Care Provider. Call [employer] [facility] ([phone]) or report to the closest Emergency Room. Call 911 if necessary. 10/10/17 1700 <Electronically signed by Fredy Tejada MD> Date Fredy Tejada MD Cosigner Signature (If Indicated): Date CC: Donald Coleman MD ABDOMEN/PELVIS WITHOUT Observed: 10/10/2017 Status: F Source: [place] CONT 9:[address] [facility] REPOSITORY [facility] Imaging Services [address] [place], [place] [address] [address] Abdomen/Pelvis without Cont MR#: [id number] Acct: [id number] Name: ADELIAAMADO Margie Rep #: [id number] : 1990 M 27 From: Parminder Mejia MD PCP: Donald Coleman MD Status: REG ER Study: Abdomen/Pelvis without Cont Date of Exam: 10/10/17 Exam# [id number] Ordering Dr: Fredy Tejada MD STUDY: CT ABDOMEN AND PELVIS WITHOUT CONTRAST REASON FOR EXAM: Male, 27 years old. Left flank pain. History of renal calculi. RADIATION DOSAGE (If Supplied By Facility): CTDIvol = ( 14.83 ) mGy, DLP = ( 803.98 ) mGycm TECHNIQUE: Transaxial images were obtained from the dome of the diaphragm to the symphysis pubis without oral contrast, and without intravenous contrast. Sagittal and coronal images were reconstructed. Individualized dose optimization techniques were used for this CT. COMPARISON: Comparison is made with prior study dated June 05, 2013. FINDINGS: The visualized lung bases are unremarkable. The visualized portions of the heart are within normal limits. Normal liver. Normal gallbladder and extrahepatic biliary system. Normal spleen. Normal pancreas. Normal bilateral adrenal glands. There is a 2 mm nonobstructive calculus in the upper pole of the right kidney. Punctate calcifications in the mid to lower pole of the right kidney. Punctate calcification in the upper pole calyx of the left kidney. There is no evidence of hydronephrosis. Normal visualized stomach. Normal small intestine. There are scattered colonic diverticula consistent with diverticulosis. The appendix is visualized and appears normal. Normal abdominal aorta. Normal inferior vena cava. Normal retroperitoneum. Normal urinary bladder. Stable small bilateral benign-appearing inguinal lymph nodes. Normal abdominal wall. Normal osseous structures. CT/Abdomen/Pelvis without Cont IMPRESSION: Bilateral small nonobstructive intrarenal calculi. Electronically Signed: Parminder Mejia MD at 10:33 EST Tel [phone], Service support , CC: Donald Coleman MD; Fredy Tejada MD Irrigation Laborer: Signed URINALYSIS, COMPLETE Collected: 10/10/2017 Status: F Source: JASMIN 9:[address] [facility] REPOSITORY Order Comment: Order Date: 10/10/17 How was Urine Obtained? PAVING INSPECTOR TO SPECIFY TYPE CODE TESTS RESULT OUT OF RANGE REFERENCE UNITS LAB L400.3000 Yellow COLOR Normal Yellow LAB L400.3050 Clear Normal CLARITY Clear LAB L400.3200 Normal mg/dl Normal GLUCOSE, UR Normal LAB L400.3300 Negative mg/dL Normal BILIRUBIN URINE Negative LAB L400.3400 Negative mg/dl Normal KETONE UR Negative LAB L400.3465 1.002-1.030 Normal SP.GR. DIPSTX 1.015 LAB L400.3550 5.0 - 8.0 pH UR Normal 6.0 LAB L400.3600 Negative mg/dl PROT Normal DIPSTX Negative LAB L400.3700 Normal mg/dl High 1 UROBILI LAB L400.3750 Negative Normal NITRITE UR Negative LAB L400.3780 Negative /ul High OCCULT BLOOD-UR 150 LAB L400.3800 Negative /ul High LEUK 25 ESTERASE LAB L400.4050 0-5 /hpf WBC 0 Normal SEEN LAB L400.4100 0-5 /hpf Normal RBC-UA 5-10 SEEN LAB L400.4150 0-5 /hpf SQUAM Normal EPI 0-5 SEEN LAB L400.4300 None Seen /hpf Normal BACTERIA RARE LAB L400.4350 <or=2+ /hpf 0 Normal MUCUS, URINE SEEN Performed By: #### L400.0001 #### [facility] [address] [place], [address] ALLERGIES ALLERGIES DATE TYPE / CODE NAME / CODE REACTION SEVERITY SOURCE 08/08/2018 Drug No Known Unknown [facility] Allergy/416 Allergies/R45396 Hospital 627300(SNOM 0388(RXNORM) Repository ED CT) Drug NO KNOWN [facility] Class/19063 ALLERGIES Main [place] 1003(SNOMED Repository CT) ENCOUNTERS ENCOUNTERS ADMIT/DISCHARGE ACCOUNT NUMBER ADMITTING ENCOUNTER LOCATION SOURCE CLASS 08/26/2018 [id number] Emergency [address] [place] [address] ERRoom: System [id number]: Repository [id number] 08/13/2018/08/13/20 [id number] Emergency [address] ding:ED Repository 08/10/2018/08/10/20 [id number] Emergency BBuilding:ER [address] Repository 08/09/2018/08/09/20 [id number] Emergency BBuilding:ER [address] Repository 08/08/2018/08/08/20 [id number] Emergency [address] ding:ED Repository 07/12/2018/07/15/20 [id number] [place] [address] [place] Encounter [facility] ding:EU8Chqf Repository : [id number]: 1 07/12/2018 [id number] Ambulatory BMSBuilding: [place] BMS.[facility] Repository 07/12/2018 [id number] Dejuan, Ambulatory BMSBuilding: Jasmin Benjamin BMS.[facility] Repository 07/12/[id number] [facility], Ambulatory BMSBuilding: [place] Benjamin BMS.[facility] Repository 07/12/2018 [id number] Dejuan, Ambulatory BMSBuilding: [place] BMS.[facility] Hospital Repository 06/18/2018 [id number] Ambulatory [facility] ding:MFPLAB Repository 05/21/2018/05/21/20 [id number] Emergency [address] ding:ED Repository 02/23/2018 [id number] Ambulatory [facility] ding:MTRAD Repository 02/13/2018/02/14/20 [id number] Ambulatory [address] Repository 02/13/2018/02/17/20 [id number] Ambulatory [address] Repository 11/11/2017 [id number] Ambulatory [facility] ding:MFPLAB Repository 11/06/2017/11/07/19 [id number] Emergency BBuilding:ROD Kauffman [address] [place] [address] Repository 11/05/2017/11/06/19 [id number] Emergency [address] ding:ED Repository 10/10/2017/10/10/19 [id number] Emergency [address] ding:ED Repository PAYERS PAYERS ENCOUNTER GUARANTOR PAYER SUBSCRIBER SOURCE 08/26/2018 Amado HowellDOB: Primary Amado [facility] hospitalD[facility]: [employer] [id number] Insurance:[employer] [id number] System Izabela Number: Effective Repository [place], [place] Date: [address]Vxa: () 08/13/2018 AMADO L [id number] Insurance:TagArray [facility] IZABELA Number: [id number], [place] [id number] Repository [address]Ers: (500) Date:9093-12-41[phone] () [id number] [address]VL: 08/13/2018 Secondary NOT GIVENUNK [place] Insurance:SELF PAY [facility] Number: Effective Repository Date:2018-08-13 08/10/2018 AMADO L Primary AMADO L [facility] HOWELLDOB: Insurance:SELF PAY HOWELLDOB: [facility] INSCOPolicy Number: [id number] Repository IZABELA Effective [address] [place], [place] Date:2018-08-10 - [place], [place] [address]Exh: [phone]) [id number] Name:[id number]: () [phone] () (WP) 08/09/2018 AMADO L Primary AMADO L [facility] HOWELLDOB: Insurance:SELF PAY HOWELLDOB: [facility] INSCOPolicy Number: [id number] Repository IZABELA Effective [address] [place], [place] Date:2018-08-09 - [place], [place] [address]Pyc: [phone]) [id number] Name:[id number]: () [phone] () (WP) 08/08/2018 AMADO L Primary AMADO L Jasmin [id number] [facility] HOWELLDOB: [facility] IZABELA Number: [id number], [place] [id number] Repository [address]Xeg: [phone]) Date:7780-61-12BN [phone] () SHE PLUMMER [address]GR: 08/08/2018 Secondary NOT GIVENUNK Jasmin Insurance:SELF PAY [facility] Number: Effective Repository Date:2018-08-08 07/12/2018 AMADO L Primary AMADO L J[place]min [id number] Insurance[facility] HOWELLDOB: Community IZABELA Number: [id number], [place] [id number] Repository [address]Lpq: 330) Date:0996-75-07EW [phone] () SHE PLUMMER [address]DL: 07/12/2018 Secondary NOT GIVENUNK [place] Insurance:SELF PAY [facility] Number: Effective Repository Date:2018-07-12 07/12/2018 AMADO L Primary AMADO L Jasmin [id number] Insurance:CIGNAPolicy HOWELLDOB: Community IZABELA Number: [id number], [place] [id number] Repository [address]Qzk: 330) Date:4483-99-69IW [phone] () [id number], [place] [address]YR: 07/12/2018 Secondary NOT GIVENUNK [place] Insurance:SELF PAY [facility] Number: Effective Repository Date:2018-07-12 07/12/2018 AMADO L Primary AMADO L [place] [id number] Insurance:CIGNAPolicy HOWELLDOB: [facility] IZABELA Number: [id number], [place] [id number] Repository [address]Asc: [phone]) Date:9201-09-35DP [phone] () 125126ERHQKZICXWX, [place] [address]BE: 07/12/2018 Secondary NOT GIVENUNK Jasmin Insurance:SELF PAY [facility] Number: Effective Repository Date:2018-07-12 07/12/2018 AMADO L Primary AMADO L [place] [id number] Insurance:CIGNAPolicy HOWELLDOB: Community IZABELA Number: [id number], [place] [id number] Repository [address]Bqa: ([phone]) Date:1641-64-06NL [phone] () [id number], [place] [address]IX: 07/12/2018 Secondary NOT GIVENUNK Jasmin Insurance:SELF PAY [facility] Number: Effective Repository Date:2018-07-12 07/12/2018 AMADO L Primary AMADO L Jasmin [id number] Insurance:CIGNAPolicy HOWELLDOB: Community IZABELA Number: [id number], [place] [id number] Repository [address]Bvu: ([phone]) Date:9233-25-31FF [phone] () 314183APMCBDFCZEG, [place] [address]MV: 07/12/2018 Secondary NOT GIVENUNK Jasmin Insurance:SELF PAY [facility] Number: Effective Repository Date:2018-07-12 06/18/2018 AMADO L Primary AMADO L [place] [id number] Insurance:CIGNAPolicy HOWELLDOB: Community IZABELA Number: [id number], [place] [id number] Repository [address]Qhq: (330) Date:8120-48-13IJ [phone] () 638287WDWJJKGVWIB, [place] [address]RI: 06/18/2018 Secondary NOT GIVENUNK [place] Insurance:SELF PAY [facility] Number: Effective Repository Date:2018-06-18 05/21/2018 AMADO L Primary AMADO L [place] [id number] Insurance:CIGNAPolicy HOWELLDOB: Community ZIABELA Number: [id number], [place] [id number] Repository [address]Wvn: ([phone]) Date:1206-10-19HU [phone] () 059205RABSYRIJWPX, [place] [address]YG: 05/21/2018 Secondary NOT GIVENUNK Jasmin Insurance:SELF PAY [facility] Number: Effective Repository Date:2018-05-21 02/23/2018 AMADO L Primary AMADO L [place] [id number] SPINK Insurance:CIGNAPolicy HOWELLDOB: [place], [place] Number: [id number] Hospital [address]Fmd: (330) [id number] Repository [phone] () Date:5449-08-94[address]SEIVAHUHRXE, [place] [address]XW: 02/23/2018 Secondary NOT GIVENUNK [place] Insurance:SELF PAY [facility] Number: Effective Repository Date:2018-02-23 11/11/2017 AMADO L Primary AMADO L Jasmin [id number] SPINK [facility] [place] Number: [id number] [address]Zmq: ([phone]) [id number] Repository [phone] (HP) Date:0752-56-30YW [address]ERGRBXLUKIB, [place] [address]BX: 11/11/2017 Secondary NOT GIVENUNK [place] Insurance:SELF PAY [facility] Number: Effective Repository Date:2017-11-11 11/06/2017 AMADO L [facility]SELF HOWELLDOB: [facility] Number: [id number] Repository SPINK [facility], [place], [place] [address]Ksr: Date:2017-11-06 [place] [address]Nlh: [id number] Name: () (HP) () 11/05/2017 AMADO L Primary AMADO L Jasmin [id number] SPINK Insurance:[facility]: [place] Number: [id number] [address]Zhw: ([phone]) [id number] Repository [phone] () Date:1266-42-55ZV [address]JABTOUIPXWS, [place] [address]JC: 11/05/2017 Secondary NOT GIVENUNK [place] Insurance:SELF PAY [facility] Number: Effective Repository Date:2017-11-05 10/10/2017 AMAOD L Primary AMADO L [place] [id number] SPINK Insurance:[facility]: [place] Number: [id number] [address]Krr: [phone]) [id number] Repository [phone] () Date:3362-82-83[address]FWAUJWCBYHF, [place] [address]HS: 10/10/2017 Secondary NOT GIVENUNK Jasmin Insurance:SELF PAY [facility] Number: Effective Repository Date:2017-10-10
== END 2018-08-13 17:55 | disposition home or self-care (01) ==
PROVIDERS: Emergency Provider Emergency Medicine; Family Provider Family Medicine; PCP Family Medicine
DX: K02.7 Dental root caries (principal); K08.89 Other specified disorders of teeth and supporting structures; Z79.2 Long term (current) use of antibiotics; Z79.899 Other long term (current) drug therapy
CPT/HCPCS: 99282

== ENCOUNTER 2018-10-30 11:45 | Emergency (ER) | payer OTHER, SELFPAY ==
[2018-10-30 11:46] VITALS: BP 151/51; PULSE 78; RESP 14; TEMP 36.7; O2SAT 99; BMI 25.8
--- NOTE | 2018-10-30 12:00 | ED.RN ---
PT COMES TO TRIAGE DESK. STATES I MADE AN APPT WITH MY DR. MARTELL JUST GOING TO SEE HIM FIRST. PT LEFT WITHOUT BEING SEEN IN ED.
== END 2018-10-30 12:00 | disposition left against medical advice (07) ==
LOC: ED 12:52
PROVIDERS: Emergency Provider Emergency Medicine; Family Provider Family Medicine; PCP Family Medicine
DX: R52 Pain, unspecified (principal)

== ENCOUNTER 2018-11-23 21:10 | Emergency (ER) | payer OTHER, SELFPAY ==
[2018-11-23 21:12] VITALS: BP 120/78; PULSE 106; RESP 22; TEMP 36.6; O2SAT 99; BMI 25.8
--- NOTE | 2018-11-23 21:39 | ED.RN ---
dr. gutierrez went in to see patient. Patient no longer in room. ER checked unable to find patient at this time
== END 2018-11-23 21:41 | disposition left against medical advice (07) ==
LOC: ED 21:36
PROVIDERS: Emergency Provider Emergency Medicine; Family Provider Family Medicine; PCP Family Medicine
DX: R69 Illness, unspecified (principal)
CPT/HCPCS: 99282

== ENCOUNTER 2018-11-24 16:07 | Emergency (ER) | payer OTHER, SELFPAY ==
[2018-11-23 21:12] VITALS: BMI 25.8
[2018-11-24 16:07] VITALS: BP 109/48; PULSE 87; RESP 14; TEMP 36.6; O2SAT 97; BMI 26.6
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
--- NOTE | 2018-11-24 16:25 | RAD_ITS ---
STUDY: X-RAY - RIGHT HAND REASON FOR EXAM: Male, 28 years old. Trauma TECHNIQUE: 3 view(s) of the hand. COMPARISON: None. FINDINGS: Normal radiocarpal articulation. Normal distal radioulnar joint. Normal visualized carpal bones. Normal carpal articulations Normal carpometacarpal articulation of the thumb. Normal second through fifth carpometacarpal joints. There is a comminuted boxer fracture of the distal fifth metacarpal. There is dorsal displacement of the major proximal fragment relative to the distal fragments. There is also demonstrated a transverse fracture of the junction of distal shaft and head of the fourth metacarpal. Normal metacarpophalangeal joint of the thumb. Normal interphalangeal joint of the thumb. Normal proximal and distal phalanges of the thumb. Normal metacarpophalangeal joints of the second through fifth fingers. Normal proximal and distal interphalangeal joints of the second through fifth fingers. Normal phalanges of the second through fifth fingers. There is soft tissue swelling of the dorsum of the hand. RAD/Hand Min 3 Views IMPRESSION: Fourth and fifth metacarpal fractures as detailed above. Electronically Signed: Bharath Rojo MD at 17:13 EDT , Service support ,
--- NOTE | 2018-11-24 16:51 | ED.DEP ---
ED Disposition - Plan for ED Patient: Disposition: Home or Assisted Living Instructions: ED Fx Boxer Prescriptions: Naproxen [Naprosyn] 500 mg PO BID PRN #20 tab Referrals: Remington Coleman MD [Primary Care Provider] -
== END 2018-11-24 17:07 | disposition home or self-care (01) ==
PROVIDERS: Emergency Provider Emergency Medicine; Family Provider Family Medicine; PCP Family Medicine
DX: S62.396A Other fracture of fifth metacarpal bone, right hand, initial encounter for closed fracture (principal); F11.20 Opioid dependence, uncomplicated; W22.8XXA Striking against or struck by other objects, initial encounter; Y93.89 Activity, other specified; Y92.89 Other specified places as the place of occurrence of the external cause; Y99.8 Other external cause status
CPT/HCPCS: 29125; 73130; 99282

== ENCOUNTER 2019-07-26 21:03 | Emergency (ER) | payer MEDICAID, SELFPAY ==
[2019-07-26 21:05] VITALS: BP 125/67; PULSE 100; RESP 16; TEMP 37.6; O2SAT 97; BMI 31.4
[2019-07-26 22:27] LABS: Bacteria 0 SEEN /hpf (None Seen); Red Blood Cells-Urine 0 SEEN /hpf (0-5); Squamous Epithelial Cells - UA 0 SEEN /hpf (0-5); White Blood Cells 0 SEEN /hpf (0-5)
[2019-07-26 22:31] LABS: Color, Urine Yellow (Yellow); Glucose, Dipstick Normal (Normal); Ketone-Dipstick 5 mg/dl (Negative); Leukocyte Esterase-Dipstick Negative /ul (Negative); Nitrite-Dipstick Negative (Negative); Occult Blood-Urine Negative /ul (Negative); Protein-Dipstick Negative (Negative); Urine Bilirubin Dipstick Negative (Negative); Urine Clarity Clear (Clear); Urine Urobilinogen 1 mg/dl (Normal)
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
[2019-07-26 22:42] LABS: Mucous, Urine 1+ /hpf (<or=2+)
[2019-07-26] MEDS: Ketorolac 15 MG/ML Vial IV (23:06)
--- NOTE | 2019-07-26 23:12 | RAD_ITS ---
STUDY: X-RAY CHEST REASON FOR EXAM: Male, 29 years old. Bilateral leg pain. TECHNIQUE: PA and lateral views of the chest. COMPARISON: None. FINDINGS: The lungs are clear and expanded. There is no demonstrated pleural abnormality. Normal size heart. Normal mediastinum and florencia. Normal visualized pulmonary arteries. Normal visualized aortic arch and descending thoracic aorta. Normal visualized thoracic spine. Normal visualized ribs, clavicles, and shoulders. There is no demonstrated abnormality of the visualized soft tissue structures of the upper abdomen. RAD/Chest PA and Lateral IMPRESSION: No acute cardiopulmonary process. Electronically Signed: Alma Delia Moise MD at 23:30 EST Tel , Service support ,
[2019-07-26 23:21] LABS: ALB/GLOB Ratio 0.9 RATIO (0.9-2.4); AST(SGOT) 11 U/L (15-37); Alanine Aminotransfer ALT/SGPT 13 U/L (16-61); Albumin, Serum 3.5 g/dL (3.2-5.0); Alkaline Phosphatase 83 U/L (45-117); Anion Gap 3 (5-15); BUN 15 mg/dL (7-18); BUN/Creat Ratio 18.1 RATIO (10-20); Calcium,Total 8.7 mg/dL (8.5-10.1); Chloride 108 mmol/L (98-107); Creatinine, Serum 0.83 mg/dL (0.70-1.30); EST Glomerular Filtration Rate 117 mL/min (>60); Est Glom Filt Rate - Afr Amer 142 mL/min (>60); Estimated Creatinine Clearance 128.19 ml/min; Globulin 3.8 g/dL (2.2-4.2); Glucose 89 mg/dL (74-106); Protein, Total 7.3 g/dL (6.4-8.2); Sodium Level 140 mmol/L (136-145)
[2019-07-26 23:23] LABS: Absolute Lymphocyte Count 2.38 X10^3/uL (0.83-4.51); Absolute Neutrophil Count 5.9 X10^3/uL (2.0-7.7); Basophil# 0.04 X10^3/uL; Basophil% 0.4 % (0-1); Eosinophil# 0.18 X10^3/uL; Eosinophils% 1.9 % (0-5); Hematocrit 41.8 % (40-54); Hemoglobin 14.1 g/dL (13.0-16.5); Lymphocyte # 2.38 X10^3/ul (4.0); Mean Corp Hgb Conc 33.7 g/dL (32-36); Mean Corpuscular Hgb 29.6 pg (27.0-32.0); Mean Corpuscular Volume 87.8 fL (80-94); Mean Platelet Vol. 11.1 fl (6.2-12.0); Monocyte# 0.99 X10^3/uL; Monocyte% 10.4 % (0-10); NRBC Flagged by Analyzer 0 % (0-5); Neutrophil # 5.89 X10^3/uL (2.7-7.7); Neutrophil % 61.9 % (47-70); Platelet Count 208 K/mm3 (150-450); RBC Distribution Width CV 11.8 % (11.6-14.6); RBC Distribution Width SD 38.1 fl (35.1-43.9); Red Blood Count 4.76 M/mm3 (4.6-6.2); White Blood Count 9.5 K/mm3 (4.4-11.0)
[2019-07-27 00:01] VITALS: BP 112/51; PULSE 84; RESP 16
== END 2019-07-27 00:14 | disposition home or self-care (01) ==
PROVIDERS: Emergency Provider Emergency Medicine; Family Provider Family Medicine; PCP Family Medicine
DX: B34.9 Viral infection, unspecified (principal); M79.10 Myalgia, unspecified site; F17.210 Nicotine dependence, cigarettes, uncomplicated
CPT/HCPCS: 71046; 80053; 81001; 85025; 96374; 99285; J7040; A4216

== ENCOUNTER → 2020-09-15 18:42 | Outpatient (CLI) | payer MEDICAID, SELFPAY | PROVIDERS: PCP Family Medicine; Referring Provider Family Medicine; Visit Provider Family Medicine | DX: Z20.822 Contact with and (suspected) exposure to COVID-19 (principal) | CPT/HCPCS: 87635; U0005; U0003 ==

== ENCOUNTER → 2020-09-27 13:50 | Outpatient (CLI) | payer OTHER, MEDICAID, SELFPAY | PROVIDERS: PCP Family Medicine; Referring Provider Family Medicine; Visit Provider Family Medicine | DX: Z20.822 Contact with and (suspected) exposure to COVID-19 (principal) ==

== ENCOUNTER 2020-10-17 13:05 | Inpatient (IN) | payer MEDICAID, SELFPAY ==
[2020-10-17 13:06] VITALS: BP 111/78; PULSE 88; RESP 17; TEMP 36.3; O2SAT 98; BMI 29.4
--- NOTE | 2020-10-17 14:16 | ED.VISSUMM ---
- ER Visit Summary Date of Service: 10/17/20 Chief Complaint: Opiate detox History of Present Illness: The patient is a 30 M who presents requesting opiate detox. Patient states he uses approximately 1 to 1-1/2 g a day. Patient states he normally injects but over the last couple days he has only been snorting. Patient states he has been through detox 2 years ago and is on Suboxone. Patient states he started using several months ago. Patient states his last use was less than 12 hours ago. Patient denies any withdrawal symptoms at the present time. Patient states he has had tremors, nausea, vomiting, abdominal cramping, and sweats with prior episodes of detox. Physical Examination: Vital signs are stable. Patient is afebrile. Patient is in no acute distress. Oral mucosa is pink and moist. Neck is supple. Trachea is midline. There is no JVD noted. Heart was regular rate and rhythm. Lungs are clear and equal bilaterally. Abdomen is soft. Bowel sounds are normal. There is no tenderness. There is no rebound or guarding noted. Skin is warm dry. There is some mild erythema over the right antecubital area. There is minimal fluctuance. There is minimal tenderness. Cranial nerves II through XII are intact. There are no focal motor or sensory deficits noted. Extremities are intact. There is no calf tenderness or edema. Test Results: CBC was within normal limits. Comprehensive metabolic profile, serum alcohol level, urine tox urine were obtained. Urine tox urine was positive for opiates, amphetamines, methamphetamines, cannabinoids, and benzodiazepines. Comprehensive metabolic profile and serum alcohol level were normal. Emergency Department Course and Treatment: Patient was discussed with the hospitalist. He will admit the patient to the floor for detox. Patient understood and was agreeable with the plan. All questions were answered. Disposition: Admit to hospital Impression: 1. Opiate dependence This note was generated with [employer] dictation software. It may contain incorrect words, spelling, and punctuation that were not noted in review of the chart prior to signing ED Disposition - Plan for ED Patient: Disposition: Acute Care Hospital [facility] Diagnosis: Opiate dependence
[2020-10-17 14:34] LABS: Absolute Lymphocyte Count 1.16 X10^3/uL (0.83-4.51); Basophil# 0.05 X10^3/uL; Basophil% 0.6 % (0-1); Eosinophil# 0.14 X10^3/uL; Eosinophils% 1.8 % (0-5); Hemoglobin 14.2 g/dL (13.0-16.5); Lymphocyte # 1.16 X10^3/ul (4.0); Mean Corp Hgb Conc 31.6 g/dL (32-36); Mean Corpuscular Hgb 28.4 pg (27.0-32.0); Mean Platelet Vol. 11.8 fl (6.2-12.0); Monocyte# 0.42 X10^3/uL; Monocyte% 5.4 % (0-10); NRBC Flagged by Analyzer 0 % (0-5); Neutrophil # 5.95 X10^3/uL (2.7-7.7); Neutrophil % 76.9 % (47-70); Platelet Count 221 K/mm3 (150-450); RBC Distribution Width CV 11.9 % (11.6-14.6); RBC Distribution Width SD 39.5 fl (35.1-43.9); White Blood Count 7.7 K/mm3 (4.4-11.0)
[2020-10-17 14:36] LABS: Amphetamine Urine VISTA POSITIVE (<1000 ng/mL); Barbiturate Urine VISTA NEGATIVE (< 200 ng/mL); Benzodiazepine Urine VISTA POSITIVE (< 200 ng/mL); Cocaine Urine VISTA NEGATIVE (< 300 ng/mL); Ecstacy Urine VISTA POSITIVE (< 500 ng/mL); Methadone Urine VISTA NEGATIVE (< 300 ng/mL); PCP Urine VISTA NEGATIVE (< 25 ng/mL); THC Urine VISTA POSITIVE (< 50 ng/mL); Vista UDS pH Range 6
[2020-10-17 14:55] LABS: ALB/GLOB Ratio 0.9 RATIO (0.9-2.4); AST(SGOT) 14 U/L (15-37); Alanine Aminotransfer ALT/SGPT 16 U/L (16-61); Albumin, Serum 3.8 g/dL (3.2-5.0); Alkaline Phosphatase 91 U/L (45-117); Anion Gap 7 (5-15); BUN 7 mg/dL (7-18); BUN/Creat Ratio 9.1 RATIO (10-20); Calcium,Total 9.4 mg/dL (8.5-10.1); Chloride 106 mmol/L (98-107); Creatinine, Serum 0.77 mg/dL (0.70-1.30); EST Glomerular Filtration Rate 127 mL/min (>60); Est Glom Filt Rate - Afr Amer 154 mL/min (>60); Estimated Creatinine Clearance 136.95 ml/min; Globulin 4.1 g/dL (2.2-4.2); Glucose 95 mg/dL (74-106); Potassium 3.9 mmol/L (3.5-5.1); Protein, Total 7.9 g/dL (6.4-8.2); Sodium Level 138 mmol/L (136-145)
[2020-10-17 15:00] VITALS: BMI 29.4
[2020-10-17 15:03] VITALS: BP 104/64; PULSE 80; RESP 19; O2SAT 98
[2020-10-17 15:04] LABS: Alcohol, Blood (Medical)-Serum < 3.0 mg/dL
[2020-10-17 15:06] VITALS: BP 104/64; PULSE 80; RESP 19; TEMP 36.7; O2SAT 98
--- NOTE | 2020-10-17 15:37 | HP.PCM_ITS ---
<Mari Borges JACQUARD LOOM CARD CHANGER - Last Filed: 10/17/20 15:51> Problem List (1) Opioid withdrawal delirium, acute, hyperactive Status: Acute (2) Cocaine abuse Status: Chronic (3) Nicotine dependence Status: Chronic (4) Benzodiazepine use Status: Chronic (5) Opiate dependence Status: Chronic (6) Polysubstance abuse Status: Chronic History of Present Illness Date of Admission: 10/17/20 Chief Complaint: Opiate withdrawal. The patient is a 30 year old M who presents to the emergency room due to opiate withdrawal. Patient states his last use was approximately 12 hours ago. He reports IV heroin use. Patient states he may have been taking fentanyl as well. He denies alcohol use. Denies other drug use although he cannot say for sure what is in the substances he is using. He reports he recently relapsed to the end of August and was previously sober for 2 years, using Suboxone. He has a firm area in his right antecubital area, he denies pain or drainage. He states it does not feel like an abscess. He states he has had history of abscesses in the past. Denies fever, chills. He is a current pack per day smoker. He reports a history of GERD. Denies other medical history. He report nasal congestion, anxiety. Denies other withdrawal symptoms. Past Medical History Past Medical History (Chronic Problems): Chronic Problems Cocaine abuse (Chronic) Nicotine dependence (Chronic) Benzodiazepine use (Chronic) Opiate dependence (Chronic) Polysubstance abuse (Chronic) Allergies Opioids - Morphine Analogues Adverse Reaction (Verified 07/26/19 21:08) Other RECOVERING ADDICT Home Medications: Ambulatory Orders Medication Instructions Recorded Omeprazole 40 mg PO DAILY 10/17/20 Surgical History: noncontributory Psychiatric History: No pertinent psych hx Lives: Alone Smoking Status: Current every day smoker Tobacco Use: Cigarettes Alcohol: None Drugs: Cocaine, Heroin, Marijuana - *Family History Maternal History Items: - - Denies known maternal medical history including cardiac history. Paternal History Items: - - Denies known paternal medical history including cardiac history. Review of Systems Constitutional: Denies: Chills, Fever, Weight Change HEENT: Reports: Nasal Congestion. Denies: Head Aches, Sinus Congestion, Sinus Drainage Cardiovascular: Denies: Chest Pain, Palpitations Respiratory: Denies: Cough, Shortness of breath at rest, Sputum production Gastrointestinal: Denies: Abdominal Pain, Nausea, Vomiting Genitourinary: Denies: Dysuria Musculoskeletal: Denies: Joint Pain, Joint Tenderness Skin: Reports: - - Right antecubital area of redness, firmness. Denies: Rash, Wounds Neurological: Denies: Numbness, Tingling, Focal weakness Psychiatric: Denies: Anxiety, Depression, Homicidal Ideations, Suicidal Ideations Hematologic/ Lymphatic: Denies: Easy Bruising, Easy Bleeding VTE Information - Inpt Only VTE Present on Admission: No VTE Mechan Device Prophylaxis: None VTE Pharm Prophylaxis ordered?: No Reason prophylaxis not ordered:: Treatment Not Indicated - Physical Exam Vitals/I&O's: Vital Signs Temp Pulse Resp BP Pulse Ox 98.0 F 80 19 H 104/64 98 10/17/20 15:06 10/17/20 15:06 10/17/20 15:06 10/17/20 15:06 10/17/20 15:06 Oxygen Delivery Method Room Air Weight: 193 lb 5.526 oz Body Mass Index (BMI) 29.4 General: Alert, Oriented x3, Cooperative HEENT: Atraumatic, PERRLA, EOMI, Normocephalic Neck: Supple, No JVD, Negative Carotid Bruits Lungs: Clear to auscultation, Normal air movement Cardiovascular: Regular rate, No murmurs Abdomen: Bowel Sounds Present, Soft, Non Tender Extremities: No clubbing, No cyanosis, No edema, Capillary Refill Less than 3 Seconds Skin: - - Right antecubital area of firmness, mild erythema. No fluctuance noted. Musculoskeletal: No Tenderness to Palpation of Joints or Extremities Neurological: Cranial nerves II-XII grossly intact, Neuro grossly intact Psych/Mental Status: Normal Affect, Appropriate Laboratory Results 10/17/20 14:05: Urine Opiates Screen POSITIVE H, Urine Methadone Screen NEGATIVE, Ur Barbiturates Screen NEGATIVE, Ur Phencyclidine Scrn NEGATIVE, Ur Amphetamines Screen POSITIVE H, U Methamphetamin-MDMA POSITIVE H, U Benzodiazepines Scrn POSITIVE H, Urine Cocaine Screen NEGATIVE, U Cannabinoids Screen POSITIVE H, Ur Drug Screen Comment 10/17/20 14:25: WBC 7.7, RBC 5.00, Hgb 14.2, Hct 45.0, MCV 90.0, MCH 28.4, MCHC 31.6 L, RDW Std Deviation 39.5, RDW Coeff of Dalia 11.9, Plt Count 221, MPV 11.8, Immature Gran % (Auto) 0.300, Neut % (Auto) 76.9 H, Lymph % (Auto) 15.0 L, Graves % (Auto) 5.4, Eos % (Auto) 1.8, Baso % (Auto) 0.6, Absolute Neuts (auto) 6.0, Absolute Lymphs (auto) 1.16, Nucleated RBC % 0 10/17/20 14:25: Sodium 138, Potassium 3.9, Chloride 106, Carbon Dioxide 25.0, An ion Gap 7, BUN 7, Creatinine 0.77, Estim Creat Clear Calc 136.95, Est GFR (MDRD) Af Amer 154, Est GFR (MDRD) Non-Af 127, BUN/Creatinine Ratio 9.1 L, Glucose 95, Calcium 9.4, Total Bilirubin 0.50, AST 14 L, ALT 16, Alkaline Phosphatase 91, Total Protein 7.9, Albumin 3.8, Globulin 4.1, Albumin/Globulin Ratio 0.9 10/17/20 14:25: Ethyl Alcohol < 3.0 Current Medications Sodium Chloride (0.9% Saline Lock 10 Ml Syringe) 10 - 40 ml IV UD PRN PRN Reason: SALINE FLUSH Assessment/Plan All Active Problems Opioid withdrawal delirium, acute, hyperactive (Acute) 1. Opiate withdrawal-medical stabilization per protocol. Buprenorphine taper. As needed regimen for somatic complaints. [employer] consult. 2. Polysubstance abuse-tox screen positive for opiates, amphetamines, methamphetamines, benzodiazepines, cannabinoids. 3. Tobacco dependence-nicotine replacement patch. Encouraged cessation. 4. Right antecubital possible early abscess? Patient states this began approximately 1 week ago. Denies drainage, pain, warmth. Will monitor for now. 5. GERD-continue PPI. DVT prophylaxis-low risk, not indicated This patient was seen by JUAN C Wheatley under the supervision of Dr. Laws. <Ever Laws - Last Filed: 10/17/20 16:27> History of Present Illness The patient is a 30 year old M [] Past Medical History Allergies Opioids - Morphine Analogues Adverse Reaction (Verified 07/26/19 21:08) Other RECOVERING ADDICT - Physical Exam Vitals/I&O's: Vital Signs Temp Pulse Resp BP Pulse Ox 98.0 F 80 19 H 104/64 98 10/17/20 15:06 10/17/20 15:06 10/17/20 15:06 10/17/20 15:06 10/17/20 15:06 Oxygen Delivery Method Room Air Weight: 184 lb 15.485 oz Body Mass Index (BMI) 28.1 Laboratory Results 10/17/20 14:05: Urine Opiates Screen POSITIVE H, Urine Methadone Screen NEGATIVE, Ur Barbiturates Screen NEGATIVE, Ur Phencyclidine Scrn NEGATIVE, Ur Amphetamines Screen POSITIVE H, U Methamphetamin-MDMA POSITIVE H, U Benzodiazepines Scrn POSITIVE H, Urine Cocaine Screen NEGATIVE, U Cannabinoids Screen POSITIVE H, Ur Drug Screen Comment 10/17/20 14:25: WBC 7.7, RBC 5.00, Hgb 14.2, Hct 45.0, MCV 90.0, MCH 28.4, MCHC 31.6 L, RDW Std Deviation 39.5, RDW Coeff of Dalia 11.9, Plt Count 221, MPV 11.8, Immature Gran % (Auto) 0.300, Neut % (Auto) 76.9 H, Lymph % (Auto) 15.0 L, Graves % (Auto) 5.4, Eos % (Auto) 1.8, Baso % (Auto) 0.6, Absolute Neuts (auto) 6.0, Absolute Lymphs (auto) 1.16, Nucleated RBC % 0 10/17/20 14:25: Sodium 138, Potassium 3.9, Chloride 106, Carbon Dioxide 25.0, Anion Gap 7, BUN 7, Creatinine 0.77, Estim Creat Clear Calc 136.95, Est GFR (MDRD) Af Amer 154, Est GFR (MDRD) Non-Af 127, BUN/Creatinine Ratio 9.1 L, Glucose 95, Calcium 9.4, Total Bilirubin 0.50, AST 14 L, ALT 16, Alkaline Phosphatase 91, Total Protein 7.9, Albumin 3.8, Globulin 4.1, Albumin/Globulin Ratio 0.9 10/17/20 14:25: Ethyl Alcohol < 3.0 Current Medications Buprenorphine HCl (Buprenorphine Hcl 2 Mg Tab.Subl) 0 mg SL Q8H LACI; Taper Stop: 10/20/20 15:39 Clonidine (Clonidine Hcl 0.1 Mg Tablet) 0.1 mg PO Q8H PRN PRN PRN Reason: RESTLESSNESS Dicyclomine HCl (Dicyclomine 10 Mg Capsule) 20 mg PO Q6H PRN PRN PRN Reason: Abdominal Discomfort Gabapentin (Gabapentin 300 Mg Capsule) 300 mg PO Q8H PRN PRN PRN Reason: moderate to severe anxiety Hydroxyzine Pamoate (Hydroxyzine Lucía 25 Mg Capsule) 50 mg PO Q6H PRN PRN PRN Reason: mild anxiety Loperamide HCl (Loperamide 2 Mg Capsule) 2 mg PO Q4H PRN PRN PRN Reason: LOOSE STOOLS Methocarbamol (Methocarbamol 750 Mg Tablet) 1,500 mg PO Q6H PRN PRN PRN Reason: MUSCLE SPASM Nicotine (Nicotine 21 Mg Patch) 21 mg TD DAILY LACI Last Admin: 10/17/20 16:11 Dose: 21 mg Documented by: Ondansetron HCl (Ondansetron 8 Mg Tablet) 8 mg PO Q8H PRN PRN PRN Reason: NAUSEA Pantoprazole Sodium (Pantoprazole Sodium 40 Mg Tablet) 40 mg PO DAILY LACI Sodium Chloride (0.9% Saline Lock 10 Ml Syringe) 10 - 40 ml IV UD PRN PRN Reason: SALINE FLUSH Trazodone HCl (Trazodone 100 Mg Tablet) 100 mg PO QHS PRN PRN PRN Reason: INSOMNIA Addendum: Dr. Laws I personally examined the patient and reviewed the chart. I agree with the above. 30-year-old male who relapsed in August with heroin. He had p reviously been clean for 2 years on Suboxone however based on the stress that he had had over he started using again and would like to get clean. He says that he is also hepatitis C positive but is unaware of ever having had an HIV test so we will obtain 1 of those. I discussed with him the protocol for detox and he is willing to abide by all the rules, he does state that he has his own outpatient rehab facility that he would like to continue to use on discharge. His last use was about 9 hours prior to admission he generally uses half a gram to a gram each time. We will continue to monitor with his right antecubital fossa as he has just an indurated area, he is afebrile without a leukocytosis has been going on for about a week still does monitor for now. Inpatient E&M: 34052 Init Hosp L2
[2020-10-17 15:47] VITALS: BMI 28.1
[2020-10-17 17:37] LABS: HIV - WCH Non-Reactive (Nonreactive)
--- NOTE | 2020-10-17 17:55 | CM.ED ---
SOCIAL WORK Substance Abuse-requesting detox from heroin Patient reports uses 1-1 1/2g of heroin a day. Patient states last use was early this morning. Patient has been in contact with [facility]. Call to [facility] Treatment Navigator, Eugenia. Per Veronica Bello to be in tomorrow to assess patient. Plan: TEDDY Lakhani, CERAMIC TILE INSTALLATION HELPER, CENTER MEDICAL DIRECTOR
[2020-10-17 21:15] VITALS: BP 98/69; PULSE 89; RESP 16; TEMP 36.9; O2SAT 99
[2020-10-17] MEDS: hydrOXYzine PAM 25 MG Capsule 50 MG PO (21:41)
[2020-10-17] MEDS: Methocarbamol 750 MG Tablet 1500 MG PO (21:41)
[2020-10-17] MEDS: Dicyclomine 10 MG Capsule 20 MG PO (21:41)
[2020-10-17] MEDS: Buprenorphine HCl 2 MG TAB.SUBL SL (22:56)
[2020-10-18] MEDS: traZODone 100 MG Tablet PO ×2 (03:13→22:08)
[2020-10-18] MEDS: Gabapentin 300 MG Capsule PO ×2 (03:13→14:03)
[2020-10-18 03:15] VITALS: BP 118/77; PULSE 80; RESP 16; TEMP 36.7; O2SAT 99
[2020-10-18] MEDS: Buprenorphine HCl 2 MG TAB.SUBL SL ×3 (06:21→22:08)
[2020-10-18] MEDS: Ondansetron 8 MG Tablet PO (06:21)
[2020-10-18 09:45] VITALS: BP 126/75; PULSE 58; RESP 16; TEMP 36.8; O2SAT 95
[2020-10-18] MEDS: Pantoprazole Sodium 40 MG Tablet PO (09:47)
[2020-10-18] MEDS: hydrOXYzine PAM 25 MG Capsule 50 MG PO ×2 (09:47→20:00)
[2020-10-18] MEDS: Methocarbamol 750 MG Tablet 1500 MG PO ×2 (09:47→20:00)
[2020-10-18] MEDS: cloNIDine HCl 0.1 MG Tablet PO ×2 (09:47→20:00)
[2020-10-18] MEDS: Dicyclomine 10 MG Capsule 20 MG PO ×2 (09:47→20:00)
[2020-10-18 09:50] VITALS: PULSE 56
--- NOTE | 2020-10-18 10:20 | PN_ITS ---
<Amado Borgesssica COMMUNITY SERVICE PATROL OFFICER - Last Filed: 10/18/20 10:21> Patient Problems: Active and Suspected Problems Opioid withdrawal delirium, acute, hyperactive (Acute) Subjective: Patient seen and examined. States he does not feel well. Reports nausea, abdominal cramping, restlessness. States he did not sleep well overnight. - Physical Exam Vitals/I&O's: Vital Signs Temp Pulse Resp BP Pulse Ox 98.2 F 56 L 16 126/75 H 95 10/18/20 09:45 10/18/20 09:50 10/18/20 09:45 10/18/20 09:45 10/18/20 09:45 Oxygen Delivery Method Room Air Weight: 184 lb 15.485 oz Body Mass Index (BMI) 28.1 Intake and Output for Last 24 Hours 10/16/20 10/17/20 10/18/20 23:59 23:59 23:59 Intake Total 900 / 900 Balance 900 / 900 General: Alert, Oriented x3, Cooperative HEENT: Atraumatic, PERRLA, EOMI, Normocephalic Neck: Supple, No JVD, Negative Carotid Bruits Lungs: Clear to auscultation, Normal air movement Cardiovascular: Regular rate, No murmurs Abdomen: Bowel Sounds Present, Soft, Non Tender, Non-Distended Extremities: No clubbing, No cyanosis, No edema, Capillary Refill Less than 3 Seconds Skin: - - Right antecubital area of firmness, mild erythema. No fluctuance noted. Musculoskeletal: No Tenderness to Palpation of Joints or Extremities Neurological: Cranial nerves II-XII grossly intact, Neuro grossly intact Psych/Mental Status: Normal Affect, Appropriate Laboratory Results 10/17/20 14:05: Urine Opiates Screen POSITIVE H, Urine Methadone Screen NEGATIVE, Ur Barbiturates Screen NEGATIVE, Ur Phencyclidine Scrn NEGATIVE, Ur Amphetamines Screen POSITIVE H, U Methamphetamin-MDMA POSITIVE H, U Benzodiazepines Scrn POSITIVE H, Urine Cocaine Screen NEGATIVE, U Cannabinoids Screen POSITIVE H, Ur Drug Screen Comment 10/17/20 14:25: WBC 7.7, RBC 5.00, Hgb 14.2, Hct 45.0, MCV 90.0, MCH 28.4, MCHC 31.6 L, RDW Std Deviation 39.5, RDW Coeff of Dalia 11.9, Plt Count 221, MPV 11.8, Immature Gran % (Auto) 0.300, Neut % (Auto) 76.9 H, Lymph % (Auto) 15.0 L, [place] % (Auto) 5.4, Eos % (Auto) 1.8, Baso % (Auto) 0.6, Absolute Neuts (auto) 6.0, Absolute Lymphs (auto) 1.16, Nucleated RBC % 0 10/17/20 14:25: Sodium 138, Potassium 3.9, Chloride 106, Carbon Dioxide 25.0, Anion Gap 7, BUN 7, Creatinine 0.77, Estim Creat Clear Calc 136.95, Est GFR (MDRD) Af Amer 154, Est GFR (MDRD) Non-Af 127, BUN/Creatinine Ratio 9.1 L, Glucose 95, Calcium 9.4, Total Bilirubin 0.50, AST 14 L, ALT 16, Alkaline Phosphatase 91, Total Protein 7.9, Albumin 3.8, Globulin 4.1, Albumin/Globulin Ratio 0.9 10/17/20 14:25: Ethyl Alcohol < 3.0 10/17/20 16:41: HIV 1&2 Antibody Non-Reactive Current Medications Buprenorphine HCl (Buprenorphine Hcl 2 Mg Tab.Subl) 4 mg SL Q8H LACI; Taper Stop: 10/20/20 21:59 Last Admin: 10/18/20 06:21 Dose: 4 mg Documented by: Clonidine (Clonidine Hcl 0.1 Mg Tablet) 0.1 mg PO Q8H PRN PRN PRN Reason: RESTLESSNESS Last Admin: 10/18/20 09:47 Dose: 0.1 mg Documented by: Dicyclomine HCl (Dicyclomine 10 Mg Capsule) 20 mg PO Q6H PRN PRN PRN Reason: Abdominal Discomfort Last Admin: 10/18/20 09:47 Dose: 20 mg Documented by: Gabapentin (Gabapentin 300 Mg Capsule) 300 mg PO Q8H PRN PRN PRN Reason: moderate to severe anxiety Last Admin: 10/18/20 03:13 Dose: 300 mg Documented by: Hydroxyzine Pamoate (Hydroxyzine Lucía 25 Mg Capsule) 50 mg PO Q6H PRN PRN PRN Reason: mild anxiety Last Admin: 10/18/20 09:47 Dose: 50 mg Documented by: Loperamide HCl (Loperamide 2 Mg Capsule) 2 mg PO Q4H PRN PRN PRN Reason: LOOSE STOOLS Methocarbamol (Methocarbamol 750 Mg Tablet) 1,500 mg PO Q6H PRN PRN PRN Reason: MUSCLE SPASM Last Admin: 10/18/20 09:47 Dose: 1,500 mg Documented by: Nicotine (Nicotine 21 Mg Patch) 21 mg TD DAILY [facility] Last Admin: 10/18/20 09:47 Dose: 21 mg Documented by: Ondansetron HCl (Ondansetron 8 Mg Tablet) 8 mg PO Q8H PRN PRN PRN Reason: NAUSEA Last Admin: 10/18/20 06:21 Dose: 8 mg Documented by: Pantoprazole Sodium (Pantoprazole Sodium 40 Mg Tablet) 40 mg PO DAILY [facility] Last Admin: 10/18/20 09:47 Dose: 40 mg Documented by: Trazodone HCl (Trazodone 100 Mg Tablet) 100 mg PO QHS PRN PRN PRN Reason: INSOMNIA Last Admin: 10/18/20 03:13 Dose: 100 mg Documented by: Medical Necessity - Tobacco Use Smoking Status: Current every day smoker Tobacco Use: Cigarettes Assessment/Plan All Active Problems Opioid withdrawal delirium, acute, hyperactive (Acute) 1. Opiate withdrawal-medical stabilization per protocol. Buprenorphine taper. As needed regimen for somatic complaints. [facility] consult. 2. Polysubstance abuse-tox screen positive for opiates, amphetamines, methamphetamines, benzodiazepines, cannabinoids. 3. Tobacco dependence-nicotine replacement patch. Encouraged cessation. 4. Right antecubital possible early abscess? Patient states this began approximately 1 week ago. Denies drainage, pain, warmth. Will monitor for now. 5. GERD-continue PPI. DVT prophylaxis-low risk, not indicated This patient was seen by JUAN C Wheatley under the supervision of Dr. Mayberry. <Cherry Mayberry - Last Filed: 10/18/20 16:40> - Physical Exam Vitals/I&O's: Vital Signs Temp Pulse Resp BP Pulse Ox 98.8 F 60 16 129/69 H 96 10/18/20 14:01 10/18/20 14:01 10/18/20 14:01 10/18/20 14:01 10/18/20 14:01 Oxygen Delivery Method Room Air Weight: 83.9 kg Body Mass Index (BMI) 28.1 Intake and Output for Last 24 Hours 10/16/20 10/17/20 10/18/20 23:59 23:59 23:59 Intake Total 900 / 900 Balance 900 / 900 Laboratory Results 10/17/20 14:05: Urine Opiates Screen POSITIVE H, Urine Methadone Screen NEGATIVE, Ur Barbiturates Screen NEGATIVE, Ur Phencyclidine Scrn NEGATIVE, Ur Amphetamines Screen POSITIVE H, U Methamphetamin-MDMA POSITIVE H, U Benzodiazepines Scrn POSITIVE H, Urine Cocaine Screen NEGATIVE, U Cannabinoids Screen POSITIVE H, Ur Drug Screen Comment 10/17/20 14:25: WBC 7.7, RBC 5.00, Hgb 14.2, Hct 45.0, MCV 90.0, MCH 28.4, MCHC 31.6 L, RDW Std Deviation 39.5, RDW Coeff of Dalia 11.9, Plt Count 221, MPV 11.8, Immature Gran % (Auto) 0.300, Neut % (Auto) 76.9 H, Lymph % (Auto) 15.0 L, [place] % (Auto) 5.4, Eos % (Auto) 1.8, Baso % (Auto) 0.6, Absolute Neuts (auto) 6.0, Absolute Lymphs (auto) 1.16, Nucleated RBC % 0 10/17/20 14:25: Sodium 138, Potassium 3.9, Chloride 106, Carbon Dioxide 25.0, Anion Gap 7, BUN 7, Creatinine 0.77, Estim Creat Clear Calc 136.95, Est GFR (MDRD) Af Amer 154, Est GFR (MDRD) Non-Af 127, BUN/Creatinine Ratio 9.1 L, Glucose 95, Calcium 9.4, Total Bilirubin 0.50, AST 14 L, ALT 16, Alkaline Phosphatase 91, Total Protein 7.9, Albumin 3.8, Globulin 4.1, Albumin/Globulin Ratio 0.9 10/17/20 14:25: Ethyl Alcohol < 3.0 10/17/20 16:41: HIV 1&2 Antibody Non-Reactive Current Medications Buprenorphine HCl (Buprenorphine Hcl 2 Mg Tab.Subl) 4 mg SL Q8H LACI; Taper Stop: 10/20/20 21:59 Last Admin: 10/18/20 14:03 Dose: 4 mg Documented by: Clonidine (Clonidine Hcl 0.1 Mg Tablet) 0.1 mg PO Q8H PRN PRN PRN Reason: RESTLESSNESS Last Admin: 10/18/20 09:47 Dose: 0.1 mg Documented by: Dicyclomine HCl (Dicyclomine 10 Mg Capsule) 20 mg PO Q6H PRN PRN PRN Reason: Abdominal Discomfort Last Admin: 10/18/20 09:47 Dose: 20 mg Documented by: Gabapentin (Gabapentin 300 Mg Capsule) 300 mg PO Q8H PRN PRN PRN Reason: moderate to severe anxiety Last Admin: 10/18/20 14:03 Dose: 300 mg Documented by: Hydroxyzine Pamoate (Hydroxyzine Lucía 25 Mg Capsule) 50 mg PO Q6H PRN PRN PRN Reason: mild anxiety Last Admin: 10/18/20 09:47 Dose: 50 mg Documented by: Loperamide HCl (Loperamide 2 Mg Capsule) 2 mg PO Q4H PRN PRN PRN Reason: LOOSE STOOLS Methocarbamol (Methocarbamol 750 Mg Tablet) 1,500 mg PO Q6H PRN PRN PRN Reason: MUSCLE SPASM Last Admin: 10/18/20 09:47 Dose: 1,500 mg Documented by: Nicotine (Nicotine 21 Mg Patch) 21 mg TD DAILY [facility] Last Admin: 10/18/20 09:47 Dose: 21 mg Documented by: Ondansetron HCl (Ondansetron 8 Mg Tablet) 8 mg PO Q8H PRN PRN PRN Reason: NAUSEA Last Admin: 10/18/20 06:21 Dose: 8 mg Documented by: Pantoprazole Sodium (Pantoprazole Sodium 40 Mg Tablet) 40 mg PO DAILY [facility] Last Admin: 10/18/20 09:47 Dose: 40 mg Documented by: Trazodone HCl (Trazodone 100 Mg Tablet) 100 mg PO QHS PRN PRN PRN Reason: INSOMNIA Last Admin: 10/18/20 03:13 Dose: 100 mg Documented by: Assessment/Plan This patient was seen in conjunction with Mari Borges NP. I have independently interviewed and examined the patient and reviewed pertinent historical, laboratory, and other data. Please refer to her note for patient's presentation, findings, and recommendations. Patient was seen and examined. No acute events overnight. Denies any fever or chills. Vitals were reviewed -stable Physical Exam: Gen: Comfortable, not pale, not jaundiced, alert oriented x3 CVS:HS I +II, regular, no murmurs RESP:CTA GI: BS present and normal, nontender, no palpable organs EXT:No edema Labs reviewed: ASSESSMENT: 1. Acute opioid withdrawal 2. Polysubstance abuse 3. Nicotine dependence 4. Right antecubital cellulitis, appears to have resolved 5. GERD Meds reviewed Plan: Continue on Subutex withdrawal protocol Nicotine replacement Inpatient E&M: 83925 Subs Hosp L2
--- NOTE | 2020-10-18 10:30 | ADDICTION ---
This documentation writer attempted to meet with PT in his room. PT requested to meet with this documentation writer tomorrow (10/19) due to not feeling well. This documentation writer will follow up at next visit.
[2020-10-18 14:01] VITALS: BP 129/69; PULSE 60; RESP 16; TEMP 37.1; O2SAT 96
[2020-10-18 19:52] VITALS: BP 123/70; PULSE 88; RESP 16; TEMP 36.8; O2SAT 99
[2020-10-19 02:35] VITALS: BP 117/65; PULSE 93; RESP 16; TEMP 36.6; O2SAT 95
[2020-10-19] MEDS: Buprenorphine HCl 2 MG TAB.SUBL SL ×3 (05:55→21:49)
[2020-10-19 08:06] VITALS: BP 121/68; PULSE 77; RESP 16; TEMP 37.1; O2SAT 99
[2020-10-19 08:10] VITALS: PULSE 52
--- NOTE | 2020-10-19 09:51 | ADDICTION ---
This newspaper writer attempted to meet with PT in his room to conduct assessments and plan for d/c. PT did not rouse to 5x verbal prompting. This newspaper writer will attempt to visit with PT at next visit on 10/20/20.
[2020-10-19] MEDS: Pantoprazole Sodium 40 MG Tablet PO (10:17)
[2020-10-19 13:27] VITALS: BP 123/75; PULSE 81; RESP 16; TEMP 36.8; O2SAT 98
[2020-10-19 13:30] VITALS: PULSE 60
[2020-10-19] MEDS: Dicyclomine 10 MG Capsule 20 MG PO ×2 (13:33→20:09)
[2020-10-19] MEDS: hydrOXYzine PAM 25 MG Capsule 50 MG PO (13:33)
--- NOTE | 2020-10-19 15:52 | CHAPLAIN ---
Type of Pastoral Visit ___ Initial Visit ___ Follow-up Visit ___ On-call Visit ___ General Patient Visit ___ Spiritual Assessment ___ Family Conference ___ Bereavement ___ Rapid Response ___ Code Blue ___ Other (describe below) Pastoral Care Referral From _x__ Patient ___ Family ___ Nurse ___ Physician ___ Cap Coverer ___ Cable Maintainer ___ Other (describe below) Sacrament/Intervention ___ Active listening ___ Anointing ___ Jewish ___ Bereavement ___ Communion ___ Daphney exploration ___ ___ Life review ___ Prayer ___ Reconciliation ___ Sacrament of Sick ___ Supportive presence ___ Wedding ___ Other (describe below) Pastoral Comments two attempts made to visit patient who is sleeping and does not awaken to his name
--- NOTE | 2020-10-19 18:05 | PN_ITS ---
Patient Problems: Active and Suspected Problems Opioid withdrawal delirium, acute, hyperactive (Acute) Reason for Visit: Follow-up on acute opiate withdrawal Subjective: Patient was seen and examined. No new complaints. No acute events overnight. Objective: Physical Exam: Gen: Comfortable, not pale, not jaundiced, alert oriented x3 CVS:HS I +II, regular, no murmurs RESP:CTA GI: BS present and normal, nontender, no palpable organs EXT:No edema Vitals/I&O's: Vital Signs Temp Pulse Resp BP Pulse Ox 98.2 F 60 16 123/75 H 98 10/19/20 13:27 10/19/20 13:30 10/19/20 13:27 10/19/20 13:27 10/19/20 13:27 Oxygen Delivery Method Room Air Weight: 83.9 kg Body Mass Index (BMI) 28.1 Intake and Output for Last 24 Hours 10/17/20 10/18/20 10/19/20 23:59 23:59 23:59 Intake Total 1100 / 1100 240 / 240 Balance 1100 / 1100 240 / 240 Current Medications Buprenorphine HCl (Buprenorphine Hcl 2 Mg Tab.Subl) 2 mg SL Q8H LACI; Taper Stop: 10/20/20 21:59 Last Admin: 10/19/20 13:33 Dose: 2 mg Documented by: Clonidine (Clonidine Hcl 0.1 Mg Tablet) 0.1 mg PO Q8H PRN PRN PRN Reason: RESTLESSNESS Last Admin: 10/18/20 20:00 Dose: 0.1 mg Documented by: Dicyclomine HCl (Dicyclomine 10 Mg Capsule) 20 mg PO Q6H PRN PRN PRN Reason: Abdominal Discomfort Last Admin: 10/19/20 13:33 Dose: 20 mg Documented by: Gabapentin (Gabapentin 300 Mg Capsule) 300 mg PO Q8H PRN PRN PRN Reason: moderate to severe anxiety Last Admin: 10/18/20 14:03 Dose: 300 mg Documented by: Hydroxyzine Pamoate (Hydroxyzine Lucía 25 Mg Capsule) 50 mg PO Q6H PRN PRN PRN Reason: mild anxiety Last Admin: 10/19/20 13:33 Dose: 50 mg Documented by: Loperamide HCl (Loperamide 2 Mg Capsule) 2 mg PO Q4H PRN PRN PRN Reason: LOOSE STOOLS Methocarbamol (Methocarbamol 750 Mg Tablet) 1,500 mg PO Q6H PRN PRN PRN Reason: MUSCLE SPASM Last Admin: 10/18/20 20:00 Dose: 1,500 mg Documented by: Nicotine (Nicotine 21 Mg Patch) 21 mg TD DAILY [facility] Last Admin: 10/19/20 10:17 Dose: 21 mg Documented by: Ondansetron HCl (Ondansetron 8 Mg Tablet) 8 mg PO Q8H PRN PRN PRN Reason: NAUSEA Last Admin: 10/18/20 06:21 Dose: 8 mg Documented by: Pantoprazole Sodium (Pantoprazole Sodium 40 Mg Tablet) 40 mg PO DAILY [facility] Last Admin: 10/19/20 10:17 Dose: 40 mg Documented by: Trazodone HCl (Trazodone 100 Mg Tablet) 100 mg PO QHS PRN PRN PRN Reason: INSOMNIA Last Admin: 10/18/20 22:08 Dose: 100 mg Documented by: Medical Necessity - Tobacco Use Smoking Status: Current every day smoker Tobacco Use: Cigarettes Assessment/Plan All Active Problems Opioid withdrawal delirium, acute, hyperactive (Acute) 1. Acute opioid withdrawal, improving, continue with the Subutex withdrawal protocol 2. Polysubstance abuse, advised to quit 3. Nicotine dependence, on replacement 4. Right antecubital cellulitis, appears to have resolved 5. GERD, continue on PPI 6. DVT prophylaxis?low risk, early ambulation Inpatient E&M: 03337 [facility] Hosp L2
--- NOTE | 2020-10-19 18:08 | PCM.PN.HOSP ---
Patient Problems: Active and Suspected Problems Opioid withdrawal delirium, acute, hyperactive (Acute) Reason for Visit: Follow-up on acute opioid withdrawal Vitals/I&O's: Vital Signs Temp Pulse Resp BP Pulse Ox 98.2 F 60 16 123/75 H 98 10/19/20 13:27 10/19/20 13:30 10/19/20 13:27 10/19/20 13:27 10/19/20 13:27 Oxygen Delivery Method Room Air Weight: 83.9 kg Body Mass Index (BMI) 28.1 Intake and Output for Last 24 Hours 10/17/20 10/18/20 10/19/20 23:59 23:59 23:59 Intake Total 1100 / 1100 240 / 240 Balance 1100 / 1100 240 / 240 Current Medications Buprenorphine HCl (Buprenorphine Hcl 2 Mg Tab.Subl) 2 mg SL Q8H LACI; Taper Stop: 10/20/20 21:59 Last Admin: 10/19/20 13:33 Dose: 2 mg Documented by: Clonidine (Clonidine Hcl 0.1 Mg Tablet) 0.1 mg PO Q8H PRN PRN PRN Reason: RESTLESSNESS Last Admin: 10/18/20 20:00 Dose: 0.1 mg Documented by: Dicyclomine HCl (Dicyclomine 10 Mg Capsule) 20 mg PO Q6H PRN PRN PRN Reason: Abdominal Discomfort Last Admin: 10/19/20 13:33 Dose: 20 mg Documented by: Gabapentin (Gabapentin 300 Mg Capsule) 300 mg PO Q8H PRN PRN PRN Reason: moderate to severe anxiety Last Admin: 10/18/20 14:03 Dose: 300 mg Documented by: Hydroxyzine Pamoate (Hydroxyzine Lucía 25 Mg Capsule) 50 mg PO Q6H PRN PRN PRN Reason: mild anxiety Last Admin: 10/19/20 13:33 Dose: 50 mg Documented by: Loperamide HCl (Loperamide 2 Mg Capsule) 2 mg PO Q4H PRN PRN PRN Reason: LOOSE STOOLS Methocarbamol (Methocarbamol 750 Mg Tablet) 1,500 mg PO Q6H PRN PRN PRN Reason: MUSCLE SPASM Last Admin: 10/18/20 20:00 Dose: 1,500 mg Documented by: Nicotine (Nicotine 21 Mg Patch) 21 mg TD DAILY [facility] Last Admin: 10/19/20 10:17 Dose: 21 mg Documented by: Ondansetron HCl (Ondansetron 8 Mg Tablet) 8 mg PO Q8H PRN PRN PRN Reason: NAUSEA Last Admin: 10/18/20 06:21 Dose: 8 mg Documented by: Pantoprazole Sodium (Pantoprazole Sodium 40 Mg Tablet) 40 mg PO DAILY [facility] Last Admin: 10/19/20 10:17 Dose: 40 mg Documented by: Trazodone HCl (Trazodone 100 Mg Tablet) 100 mg PO QHS PRN PRN PRN Reason: INSOMNIA Last Admin: 10/18/20 22:08 Dose: 100 mg Documented by: Medical Necessity - Tobacco Use Smoking Status: Current every day smoker Tobacco Use: Cigarettes Assessment/Plan All Active Problems Opioid withdrawal delirium, acute, hyperactive (Acute) 1. Acute opioid withdrawal, improving, continue with the Subutex withdrawal protocol 2. Polysubstance abuse, advised to quit 3. Nicotine dependence, on replacement 4. Right antecubital cellulitis, appears to have resolved 5. GERD, continue on PPI 6. DVT prophylaxis?low risk, early ambulation Inpatient E&M: 54817 [facility] Hosp L2
--- NOTE | 2020-10-19 18:11 | DCINST_ITS ---
- Discharge Diagnoses Current Active Problems: Current Active and Chronic Problems Opioid withdrawal delirium, acute, hyperactive (Acute) Cocaine abuse (Chronic) Nicotine dependence (Chronic) Benzodiazepine use (Chronic) Opiate dependence (Chronic) Polysubstance abuse (Chronic) Reason(s) for Visit for Discharge Instructions: Acute opiate withdrawal You will use the following diet at home:: Regular Your food should be the consistency of: Regular Your liquids should be the consistency of: Regular/Thin Discharge Activity: Return to Normal Activity Additional Instructions: You are strongly advised to continue to avoid use of opioids. You are also advised to stop smoking. Follow-up with your outpatient drug rehab program as scheduled. Allergies/Adverse Reactions: Allergies Opioids - Morphine Analogues Adverse Reaction (Verified 07/26/19 21:08) Other RECOVERING ADDICT Medications to take at Discharge Omeprazole 40 mg PO DAILY 10/17/20 Primary Care Physician: Remington Coleman MD [Primary Care Provider] - Please follow up with your Primary Care Physician in: within 1-2 weeks Test Results: Test results from this visit will be discussed in further detail at your follow- up appointment, if applicable. Proposed Discharge Date: 10/19/20
[2020-10-19 19:58] VITALS: BP 130/73; PULSE 78; RESP 16; TEMP 36.9; O2SAT 98
[2020-10-19] MEDS: cloNIDine HCl 0.1 MG Tablet PO (20:09)
[2020-10-19] MEDS: Methocarbamol 750 MG Tablet 1500 MG PO (20:09)
[2020-10-20 02:19] VITALS: BP 122/69; PULSE 80; RESP 16; TEMP 36.8; O2SAT 98
[2020-10-20] MEDS: Ondansetron 8 MG Tablet PO (02:29)
[2020-10-20 08:05] VITALS: BP 115/66; PULSE 52; RESP 18; TEMP 36.7; O2SAT 100
--- NOTE | 2020-10-20 09:22 | DCINST_ITS ---
- Discharge Diagnoses Current Active Problems: Current Active and Chronic Problems Opioid withdrawal delirium, acute, hyperactive (Acute) Cocaine abuse (Chronic) Nicotine dependence (Chronic) Benzodiazepine use (Chronic) Opiate dependence (Chronic) Polysubstance abuse (Chronic) You will use the following diet at home:: Regular Your food should be the consistency of: Regular Your liquids should be the consistency of: Regular/Thin Discharge Activity: Return to Normal Activity Call your doctor if you observe: Fever of 101 or Higher, Shortness of breath, Dizziness, Fainting spells, Swelling in the ankles, Chest pain, Increased palpitations (irregular heartbeat) Allergies/Adverse Reactions: Allergies Opioids - Morphine Analogues Adverse Reaction (Verified 07/26/19 21:08) Other RECOVERING ADDICT Medications to take at Discharge Omeprazole 40 mg PO DAILY 10/17/20 Primary Care Physician: Remington Coleman MD [Primary Care Provider] - Please follow up with your Primary Care Physician in: within 1-2 weeks Test Results: Test results from this visit will be discussed in further detail at your follow- up appointment, if applicable. Proposed Discharge Date: 10/19/20
[2020-10-20] MEDS: Pantoprazole Sodium 40 MG Tablet PO (10:20)
[2020-10-20] MEDS: Buprenorphine HCl 2 MG TAB.SUBL SL (10:20)
--- NOTE | 2020-10-20 10:21 | ADDICTION ---
This filing writer met with PT in his room to complete ASAM, MSE, DUDIT assessments and to complete d/c plan. PT was a/ox4 and stated that he plans to d/c today. He is currently engaged with Dev[facility] and plans to follow-up with his primary counselor and the MAT department. No transportation coordination requested. All completed assessments faxed to [facility] and placed in PT's chart.
[2020-10-20 10:46] VITALS: BP 127/82; PULSE 70; RESP 16; TEMP 36.7; O2SAT 99
--- NOTE | 2020-10-20 10:47 | DS.PCM_ITS ---
Discharge Date and Diagnosis - Problem List Patient Problems: Active and Suspected Problems Opioid withdrawal delirium, acute, hyperactive (Acute) Date of Admission: 10/17/20 Date of Discharge: 10/20/20 - Primary Discharge Diagnosis Acute Problems: Active Problems Opioid withdrawal delirium, acute, hyperactive (Acute) - Secondary Discharge Diagnosis Chronic Problems: Chronic Problems Cocaine abuse (Chronic) Nicotine dependence (Chronic) Benzodiazepine use (Chronic) Opiate dependence (Chronic) Polysubstance abuse (Chronic) Hospital Course and Treatment Operations: None Procedures: None Summary of Care Provided: Per HPI: The patient is a 30 year old M who presents to the emergency room due to opiate withdrawal. Patient states his last use was approximately 12 hours ago. He reports IV heroin use. Patient states he may have been taking fentanyl as well. He denies alcohol use. Denies other drug use although he cannot say for sure what is in the substances he is using. He reports he recently relapsed to the end of August and was previously sober for 2 years, using Suboxone. He has a firm area in his right antecubital area, he denies pain or drainage. He states it does not feel like an abscess. He states he has had history of abscesses in the past. Denies fever, chills. He is a current pack per day smoker. He reports a history of GERD. Denies other medical history. He report nasal congestion, anxiety. Denies other withdrawal symptoms. Hospital Course: 1. Acute opiate withdrawal/polysubstance abuse/nicotine [id number] male presented to the hospital wanting detox. He had been clean from his heroin addiction for about 2 years using Suboxone, and he relapsed in August. He underwent the opiate withdrawal protocol and is to meet with 180 prior to discharge today he refused to see them on his first day and yesterday he did not interact with them, he does have his own outpatient rehab facility that he would like to continue using on discharge. He feels ready to go home today and would like to go home. I discussed with him the plan for discharge today and he expressed understanding of the risk and benefits of going home and would like to go home today. He was tested for HIV which came back negative. Did not check for hepatitis C since he is positive, he understands he cannot receive treatment for hepatitis C until he discontinues drug use. 2. GERD is a chronic medical condition which complicates his care. So medications were continued where appropriate Patient Problems: Active and Suspected Problems Opioid withdrawal delirium, acute, hyperactive (Acute) - Physical Exam Vitals/I&O's: Vital Signs Temp Pulse Resp BP Pulse Ox 98.1 F 52 L 18 115/66 100 10/20/20 08:05 10/20/20 08:05 10/20/20 08:05 10/20/20 08:05 10/20/20 08:05 Oxygen Delivery Method Room Air Weight: 184 lb 15.485 oz Body Mass Index (BMI) 28.1 Intake and Output for Last 24 Hours 10/18/20 10/19/20 10/20/20 23:59 23:59 23:59 Intake Total 1100 / 1100 240 / 240 Balance 1100 / 1100 240 / 240 General: Alert, Oriented x3, Cooperative, No apparent distress HEENT: Atraumatic, PERRLA, EOMI, Normocephalic Oral: Moist Mucosa Neck: Supple, No JVD Lungs: Clear to auscultation, Normal air movement, No rhonchi, No wheeze, No rales Cardiovascular: Regular rate, Regular Rhythm, Normal S1, Normal S2, No murmurs Abdomen: Soft, Non Tender, Non-Distended, No Hepato-splenomegaly Extremities: No edema, Capillary Refill Less than 3 Seconds Skin: No rashes, No breakdown Neurological: Neuro grossly intact, Sensory exam intact to light touch and pain Psych/Mental Status: Normal Affect, Appropriate Current Medications Buprenorphine HCl (Buprenorphine Hcl 2 Mg Tab.Subl) 2 mg SL Q12H LACI; Taper Stop: 10/20/20 21:59 Last Admin: 10/20/20 10:20 Dose: 2 mg Documented by: Clonidine (Clonidine Hcl 0.1 Mg Tablet) 0.1 mg PO Q8H PRN PRN PRN Reason: RESTLESSNESS Last Admin: 10/19/20 20:09 Dose: 0.1 mg Documented by: Dicyclomine HCl (Dicyclomine 10 Mg Capsule) 20 mg PO Q6H PRN PRN PRN Reason: Abdominal Discomfort Last Admin: 10/19/20 20:09 Dose: 20 mg Documented by: Gabapentin (Gabapentin 300 Mg Capsule) 300 mg PO Q8H PRN PRN PRN Reason: moderate to severe anxiety Last Admin: 10/18/20 14:03 Dose: 300 mg Documented by: Hydroxyzine Pamoate (Hydroxyzine Lucía 25 Mg Capsule) 50 mg PO Q6H PRN PRN PRN Reason: mild anxiety Last Admin: 10/19/20 13:33 Dose: 50 mg Documented by: Loperamide HCl (Loperamide 2 Mg Capsule) 2 mg PO Q4H PRN PRN PRN Reason: LOOSE STOOLS Methocarbamol (Methocarbamol 750 Mg Tablet) 1,500 mg PO Q6H PRN PRN PRN Reason: MUSCLE SPASM Last Admin: 10/19/20 20:09 Dose: 1,500 mg Documented by: Nicotine (Nicotine 21 Mg Patch) 21 mg TD DAILY [facility] Last Admin: 10/20/20 10:20 Dose: 21 mg Documented by: Ondansetron HCl (Ondansetron 8 Mg Tablet) 8 mg PO Q8H PRN PRN PRN Reason: NAUSEA Last Admin: 10/20/20 02:29 Dose: 8 mg Documented by: Pantoprazole Sodium (Pantoprazole Sodium 40 Mg Tablet) 40 mg PO DAILY [facility] Last Admin: 10/20/20 10:20 Dose: 40 mg Documented by: Trazodone HCl (Trazodone 100 Mg Tablet) 100 mg PO QHS PRN PRN PRN Reason: INSOMNIA Last Admin: 10/18/20 22:08 Dose: 100 mg Documented by: Discharge Activity: Return to Normal Activity Call your doctor if you observe: Fever of 101 or Higher, Shortness of breath, Dizziness, Fainting spells, Swelling in the ankles, Chest pain, Increased palpitations (irregular heartbeat) Home Medications: Medications to take at Discharge Omeprazole 40 mg PO DAILY 10/17/20 Primary Care Physician: Remington Coleman MD [Primary Care Provider] - Please follow up with your Primary Care Physician in: within 1-2 weeks Disposition: Home Minutes spent on discharge:: 35 Patient Condition:: Stable Medical Necessity - Tobacco Use Smoking Status: Current every day smoker Tobacco Use: Cigarettes Meaningful Use Info Meaningful Use Diagnoses (Choose all that apply): None applicable Inpatient E&M: 24802 [facility] Hosp
--- NOTE | 2020-10-20 10:56 | NURSING ---
discharge instructions given to patient. pt receptive. pt request this nurse call mother leila as states cell phone is deal and has issues getting it to charge. attempted to reach mother Leila by phone number listed, answering per stated that it was not Leila. Pt gave his grandmother Lucía's number as [phone] requested call be made to her. This nurse called pt's grandmother Lucía who stated she will contact pt's mother or girlfriend. pt aware.
== END 2020-10-20 11:00 | disposition home or self-care (01) | DRG 773 ==
LOC: ED 13:42 → MS3 14:36
PROVIDERS: Admitting Provider Family Medicine; Emergency Provider Emergency Medicine; PCP Family Medicine; Visit Provider Family Medicine
DX: F11.23 Opioid dependence with withdrawal (principal); F14.10 Cocaine abuse, uncomplicated; F17.210 Nicotine dependence, cigarettes, uncomplicated; F13.90 Sedative, hypnotic, or anxiolytic use, unspecified, uncomplicated; K21.9 Gastro-esophageal reflux disease without esophagitis; B19.20 Unspecified viral hepatitis C without hepatic coma; L03.113 Cellulitis of right upper limb
CPT/HCPCS: 80053; 80307; 82077; 85025; 86703; 99284; A4216

== ENCOUNTER 2023-11-12 12:42 | Emergency (ER) | payer OTHER, MEDICAID, SELFPAY ==
[2023-11-12 12:44] VITALS: BP 126/83; PULSE 75; RESP 14; TEMP 36.2; O2SAT 98; BMI 39.7
--- NOTE | 2023-11-12 12:58 | EX.ED.DYSGE1 ---
HPI History of Present Illness Chief Complaint: Other, Pain/Inj Detail of Chief Complaint: Abscess to roof of mouth Informant: patient Narrative Narrative: Patient presents to the emergency department with complaint of an abscess to the roof of his mouth is been there for about 2 days. Patient states that he had a telehealth visit 2 days ago and was prescribed clindamycin. Patient feels like the swelling has gotten worse. He denies fevers. He denies chills or sweats. Patient states that he has poor dentition and did call dentist but cannot get in for a month so he was advised to come to the emergency department. [facility] Medical History (Updated 11/12/23 @ 13:[address] Aisha Chen, ) Substance abuse Home Medications omeprazole 40 mg capsule,delayed release 40 mg PO DAILY gerd 10/17/20 [History Last Taken 10/16/20] Allergy/AdvReac Type Severity Reaction Status Date / Time Opioids - Morphine Analogues AdvReac Other Verified 11/12/23 12:43 Social History Smoking Status: Current every day smoker tobacco type: cigarettes ROS ROS ED Review of Systems ROS Unobtainable: other Constitutional Constitutional ED: Reports lethargy; Denies chills, fever(s), sweats or weight loss Eyes Eyes: Denies blurry vision, change in vision or diplopia ENT ENT ED: Reports other Details: Abscess to roof of mouth ; Denies rhinorrhea or sore throat Cardiovascular Cardiovascular: Denies chest pain, orthopnea or racing heartbeat Respiratory/Chest Respiratory/Chest: Denies cough, dyspnea, dyspnea on exertion, orthopnea or sputum Gastrointestinal Gastrointestinal: Denies abdominal pain, diarrhea, nausea or vomiting Genitourinary Genitourinary ED: Denies dysuria, hematuria or urinary frequency Musculoskeletal Musculoskeletal: Denies arthralgias, back pain, myalgias or neck pain Integumentary Denies abscess, Abrasions or rash Neurologic Neurologic: Denies headache(s) or weakness Psychiatric Psychiatric: Denies anxiety, depression or suicidal thoughts Endocrine Endocrinology: Denies polydipsia, polyphagia or polyuria Hematologic/Lymphatic Hematologic/Lymphatic: Denies easy bleeding, easy bruising or lymphadenopathy Allergic/Immunologic Allergic/Immunologic ED: Denies mouth swelling, tongue swelling or urticaria EXAM Physical Exam Const Vital Signs: 11/12/23 12:44 11/12/23 12:44 11/12/23 12:53 Temperature 97.2 F L Temperature Source Temporal Pulse Rate 75 75 Respiratory Rate 14 14 Respiratory Effort Normal Non-Labored Respiratory Pattern Normal Blood Pressure 126/83 H 126/83 H Blood Pressure Mean 97 97 Pulse Ox 98 98 Oxygen Delivery Method Room Air Room Air 11/12/23 13:20 Temperature 97.4 F L Temperature Source Pulse Rate 78 Respiratory Rate 14 Respiratory Effort Respiratory Pattern Blood Pressure 128/79 H Blood Pressure Mean 95 Pulse Ox 99 Oxygen Delivery Method Positive well nourished and well developed General Appearance ED: well developed and NAD HEENT Reports TM's clear and moist mucous membranes HEENT Narrative: Dentition-patient has multiple broken and carried teeth upper and lower. Teeth more down to gumline. Evaluation of the roof of the mouth does reveal soft tissue swelling adjacent to the upper gingiva of the left upper incisors posteriorly abutting the hard palate. There are some mild fluctuance. normocephalic and atraumatic; Negative for trauma or tenderness Tympanic Membrane ED: Yes TM's clear Eyes PERRL and EOMs intact bilaterally General Eye ED: Negative for pale conjunctiva or scleral icterus Neck no lymphadenopathy, supple and no JVD General: Negative for tenderness Chest Wall inspection of chest normal and palpation of chest normal Chest: Negative for tenderness Resp normal respiratory effort and clear to auscultation bilaterally Effort and Inspection: Negative for respiratory distress or pain with movement Auscultation: Negative for rhonchi, wheezes or diminished lung sounds Cardio regular rate, regular rhythm, S1 normal heart sound, S2 normal heart sound and no murmurs Peripheral Pulses: pulses 2+ throughout GI normal to inspection, nondistended, normoactive bowel sounds, soft to palpation, non-tender, non-distended and no masses Back/Spine no CVA tenderness and no thoracic nor lumbar tenderness Extremity normal to inspection General Extremety ED: Negative for edema General Extremity: Negative for edema Neuro oriented x3, CN's II-XII intact bilaterally, no sensory deficits noted and gait normal Sensorium / Orientation: awake, alert, oriented to person, oriented to place and oriented to time Motor Exam: strength 5/5 throughout and strength abnormal Psych mental status grossly normal Skin no rashes or lesions noted and no wounds MDM MDM MDM Narrative Medical decision making narrative: Patient presents to the emergency department with suspected abscess to the roof of the mouth. Patient was offered an incision and drainage of the suspected abscess. He agreed. Using an 18-gauge needle I was able to make a stab incision and 5 mm extension with the bevel of the needle. Large amount of purulent free-flowing debris was expressed. Patient tolerated procedure well. Patient will be advised to continue with his clindamycin and make follow-up appointment with his dentist. Advised to return if increasing pain, redness, swelling, or condition worsening way. Discharge Plan Triage Chief Complaint: Other, Pain/Inj ED Provider: Aisha Chen Dx/Rx/DC Orders Clinical Impression: Abscess, dental Instructions: Dental Abscess, ED Tooth Abscess Prescriptions: No Action omeprazole 40 MG capsule,delayed release(DR/EC) 40 mg PO DAILY Primary Care Provider: Remington Coleman Referrals: Remington Coleman MD [Primary Care Provider] - Activity Restrictions/Additional Instructions: Follow-up with the dentist at the earliest possible time. Disposition Disposition: Home, Self Care Discharge Date/Time: 11/12/23 13:21
[2023-11-12 13:20] VITALS: BP 128/79; PULSE 78; RESP 14; TEMP 36.3; O2SAT 99
--- OUTSIDE RECORDS SUMMARY | 2023-11-12 21:29 | XMS RPT_ITS | CCD ---
Author Name Unknown Address [address] [place] [address] Organization [facility] Care Team Providers Care Senior Occupational Therapist Name Role Phone LUIS BILLS Unavailable Unavailable LIZZY MATIAS Unavailable Unavailable PHYSICIAN, NOT RECORDED Unavailable UnavailJESSICA Fulton Unavailable Unavailable PHYSICIAN, NOT RECORDED Unavailable UnavailMICHELE Ngo Unavailable Unavailable PHYSICIAN, NOT RECORDED Unavailable UnavailMatthias Cardenas Unavailable Unavailable PROVIDER, UNKNOWN Unavailable Unavailable No, PCP Unavailable Unavailable Problems Problem Classification Problem Date Documented Da te Episodic/Chronic Other injuries and conditions due to external causes (1 source) Unspecified injury of right foot, initial encounter; Translations: [Unspecified injury of right foot, initial encounter] Onset: 02-13-2018 Episodic Results Test Name Value Interpretation Reference Range Facil ity Encounters Encounter Date Encounter Type Care Provider Facility Start: 08-26-2018 Emergency department patient visit Matthias Watsonell [facility] Start: 08-10-2018 End: 08-10-2018 Emergency department patient visit MICHELE COLÓN Facility:B Start: 08-09-2018 End: 08-09-2018 Emergency department patient visit JESSICA BRAND Facility:B Start: 02-13-2018 End: 02-16-2018 [place] BILL[facility] Start: 11-06-2017 End: 11-06-2017 Emergency department patient visit LZIZY MATIAS Facility:B Payers Date Payer Category Payer Self-pay 1991 Unknown [id number] 1991 Unknown [id number] 1991 Unknown [id number] 1991 Unknown [id number] Private Health Insurance Summary Purpose Family History No Family History Records FoundNo Family History Records FoundNo Family History Records Found Advance Directives No Advanced Directives Records FoundNo Advanced Directives Records FoundNo Advanced Directives Records Found Additional Source Comments (unrecognized sect ion and content) No Status Records FoundNo Status Records FoundNo Status Records Found INFORMATION SOURCE (unrecogn ized section and content) DATE CREATED AUTHOR AUTHOR'S ORGANIZ ATION 08/12/2018 [facility] ([place]) DATE CREATED AUTHOR AUTHOR'S ORGANIZ ATION 09/07/2018 [facility] FOR RECORDS PERTAINING TO PATIENTS WHO ARE OR HAVE BEEN ENROLLED IN A CHEMICAL DEPENDENCY/SUBSTANCEABUSE PROGRAM, SOME INFORMATION MAY BE OMITTED. This clinical summary was aggregated from multiple sources. Caution should be exercised in using it in the provision of clinical care. This summary normalizes information from multiple sources, and as a consequence, information in this document may materially change the coding, format and clinical context of patient data. In addition, data may be omitted in some cases. CLINICAL DECISIONS SHOULD BE BASED ON THE PRIMARY CLINICAL RECORDS. [employer] [facility]. provides no warranty or guarantee of the accuracy or completeness of information in this document.
== END 2023-11-12 13:21 | disposition home or self-care (01) ==
PROVIDERS: Emergency Provider Emergency Medicine; PCP Family Medicine; Visit Provider Emergency Medicine
DX: K04.7 Periapical abscess without sinus (principal); F17.210 Nicotine dependence, cigarettes, uncomplicated
CPT/HCPCS: 41800; 99282

== ENCOUNTER 2024-03-22 17:30 | Emergency (ER) | payer OTHER, SELFPAY ==
[2024-03-22 17:31] VITALS: BP 135/71; PULSE 97; RESP 18; TEMP 36.2; O2SAT 98; BMI 36.5
--- NOTE | 2024-03-22 19:51 | EDS_ITS ---
HPI History of Present Illness Chief Complaint: Dental Informant: patient Onset/Context/Timing Onset: Yesterday Narrative Narrative: Patient presents secondary to dental pain. Patient reports having bad teeth but states he had a tooth break off 2 days ago and he now has increased pain. [facility] Medical History Substance abuse Home Medications ?Medication ?Instructions ?Recorded ?Last Taken ?Type omeprazole 40 mg capsule,delayed 40 mg PO DAILY gerd 10/17/20 10/16/20 History release naproxen 500 mg tablet (Naprosyn) 500 mg PO BID PRN pain #20 tabs 03/22/24 Unknown Rx oxycodone-acetaminophen 5 mg-325 1 tab PO Q8H PRN pain 3 days #10 03/22/24 Unknown Rx mg tablet (Percocet) tabs penicillin V potassium 500 mg 500 mg PO 4X/DAY #40 tabs 03/22/24 Unknown Rx tablet Allergy/AdvReac Type Severity Reaction Status Date / Time Opioids - Morphine Analogues AdvReac Other Verified 03/22/24 17:31 Social History Smoking Status: Current every day smoker tobacco type: cigarettes ROS ROS ED Constitutional Constitutional ED: Denies chills or fever(s) Eyes Eyes: Denies change in vision or discharge from eye(s) ENT ENT ED: Reports other Details: Left upper dental pain ; Denies discharge from eye(s), rhinorrhea or sore throat Cardiovascular Cardiovascular: Denies chest pain Respiratory/Chest Respiratory/Chest: Denies cough or dyspnea Gastrointestinal Gastrointestinal: Denies nausea Musculoskeletal Musculoskeletal: Denies back pain or extremity pain Integumentary Denies Abrasions or rash Neurologic Neurologic: Denies headache(s) or weakness Psychiatric Psychiatric: Denies anxiety or depression Allergic/Immunologic Allergic/Immunologic ED: Denies lip swelling or urticaria EXAM Physical Exam Const Vital Signs: 03/22/24 17:31 03/22/24 20:15 Temperature 97.2 F L 97.6 F L Temperature Source Temporal Pulse Rate 97 89 Respiratory Rate 18 16 Blood Pressure 135/71 H 132/78 H Blood Pressure Mean 92 96 Pulse Ox 98 99 Oxygen Delivery Method Room Air Positive well nourished and well developed General Appearance ED: well developed HEENT HEENT Narrative: Patient has multiple dental caries and broken teeth. There is a tooth broken at the gumline at the left maxillary central incisor. Posterior pharynx unremarkable. Eyes EOMs intact bilaterally Neck no lymphadenopathy Chest Wall inspection of chest normal and palpation of chest normal Resp normal respiratory effort and clear to auscultation bilaterally Cardio regular rate and regular rhythm GI non-tender Palpation: soft Extremity normal to inspection Neuro oriented x3 and moves all extremities Psych mental status grossly normal MDM MDM MDM Narrative Medical decision making narrative: Patient will be given a prescription for Pen-Vee K along with naproxen. I will also write him for a few Percocet for breakthrough pain. He does admit to a history of opiate abuse. We discussed not wanting to attempt him with a prescription, however he is significantly uncomfortable. Patient believes he has a dentist he can follow-up with but he did get a dental referral list if this person follows through. Return instructions given. Discharge Plan Triage Chief Complaint: Dental ED Provider: Veronica Palacio Dx/Rx/DC Orders Clinical Impression: Pain, dental Instructions: ED Dental Pain Prescriptions: New naproxen [Naprosyn] 500 mg tablet 500 mg PO BID PRN (Reason: pain) Qty: 20 0RF penicillin V potassium 500 mg tablet 500 mg PO 4X/DAY Qty: 40 0RF oxycodone-acetaminophen [Percocet] 5-325 mg tablet 1 tab PO Q8H PRN (Reason: pain) 3 Days Qty: 10 0RF No Action omeprazole 40 MG capsule,delayed release(DR/EC) 40 mg PO DAILY Primary Care Provider: Donald Coleman Referrals: Donald Coleman MD [Primary Care Provider] - Activity Restrictions/Additional Instructions: Please follow-up with your dentist as soon as possible. A dental referral list is also provided for you. Print Language: Bahamian Disposition Disposition: Home, Self Care Discharge Date/Time: 03/22/24 20:19
[2024-03-22 20:15] VITALS: BP 132/78; PULSE 89; RESP 16; TEMP 36.4; O2SAT 99
[2024-03-22] MEDS: Penicillin Vk 250 MG Tablet 500 MG PO (20:19)
== END 2024-03-22 20:19 | disposition home or self-care (01) ==
PROVIDERS: Emergency Provider Emergency Medicine; PCP Family Medicine; Visit Provider Emergency Medicine
DX: K08.89 Other specified disorders of teeth and supporting structures (principal); F17.210 Nicotine dependence, cigarettes, uncomplicated
CPT/HCPCS: 99282

== ENCOUNTER → 2024-09-22 | Outpatient (CLI) | payer BC, SELFPAY ==
--- NOTE | 2024-09-22 09:44 | RAD_ITS ---
EXAM: XR ABDOMEN, 2 VIEWS CLINICAL INDICATION: diarrhea TECHNIQUE: Frontal view of the abdomen/pelvis with upright view of the abdomen. COMPARISON: CT abdomen and pelvis, 06/05/2013 FINDINGS: LOWER THORAX: No acute pathology. INTRAPERITONEAL SPACE: No free air. GASTROINTESTINAL TRACT: Nonspecific, nonobstructive bowel gas pattern. ORGANS: Normal as visualized. No organomegaly. No abnormal calcifications. BONES/JOINTS: No acute pathology. SOFT TISSUES: No acute pathology. RAD/Abd Inc Decub and/or Erect IMPRESSION: Nonspecific, nonobstructive bowel gas pattern. Electronically Signed: Phu Agudelo DO at 21:28 EST ,
[2024-09-22 10:30] LABS: Erythrocyte Sedimentation Rate 13 mm/hr (0-20)
[2024-09-22 10:32] LABS: Absolute Lymphocyte Count 2.97 X10^3/uL (0.83-4.51); Absolute Neutrophil Count 8.3 X10^3/uL (2.0-7.7); Basophil# 0.07 X10^3/uL; Basophil% 0.6 % (0-1); Eosinophil# 0.23 X10^3/uL; Eosinophils% 1.9 % (0-5); Hematocrit 49.8 % (40-54); Hemoglobin 17.1 g/dL (13.0-16.5); Lymphocyte # 2.97 X10^3/ul (0.83-4.51); Lymphocyte % 24.1 % (19-41); Mean Corp Hgb Conc 34.3 g/dL (32-36); Mean Corpuscular Hgb 30.2 pg (27.0-32.0); Mean Platelet Vol. 11.8 fl (6.2-12.0); Monocyte# 0.66 X10^3/uL; Monocyte% 5.4 % (0-10); NRBC Flagged by Analyzer 0 % (0-5); Neutrophil # 8.33 X10^3/uL (2.7-7.7); Neutrophil % 67.6 % (47-70); Platelet Count 256 K/mm3 (150-450); RBC Distribution Width CV 12.2 % (11.6-14.6); RBC Distribution Width SD 39.1 fl (35.1-43.9); Red Blood Count 5.66 M/mm3 (4.6-6.2); White Blood Count 12.3 K/mm3 (4.4-11.0)
[2024-09-22 13:26] LABS: ALB/GLOB Ratio 1.1 RATIO (0.9-2.4); AST(SGOT) 14 U/L (15-37); Alanine Aminotransfer ALT/SGPT 24 U/L (16-61); Albumin, Serum 4.3 g/dL (3.2-5.0); Alkaline Phosphatase 119 U/L (45-117); Anion Gap 9 (5-15); BUN 13 mg/dL (7-18); BUN/Creat Ratio 16.2 RATIO (10-20); CRP < 2.90 mg/L (0.0-3.0); Calcium,Total 9.7 mg/dL (8.5-10.1); Chloride 106 mmol/L (98-107); EST Glomerular Filtration Rate 118 mL/min (>60); Est Glom Filt Rate - Afr Amer 143 mL/min (>60); Globulin 3.9 g/dL (2.2-4.2); Glucose 89 mg/dL (74-106); Potassium 3.5 mmol/L (3.5-5.1); Protein, Total 8.2 g/dL (6.4-8.2); Sodium Level 139 mmol/L (136-145)
== END | disposition home or self-care (01) ==
LOC: MTLAB 09:42
PROVIDERS: PCP Family Medicine; Referring Provider Family Medicine; Visit Provider Family Medicine
DX: R19.7 Diarrhea, unspecified (principal)
CPT/HCPCS: 36415; 74019; 80053; 85025; 85652; 86140

== ENCOUNTER → 2024-10-29 | Outpatient (CLI) | payer BC, SELFPAY ==
[2024-10-29 10:38] LABS: Erythrocyte Sedimentation Rate 6 mm/hr (0-20)
[2024-10-29 10:40] LABS: Absolute Lymphocyte Count 2.96 X10^3/uL (0.83-4.51); Absolute Neutrophil Count 5.2 X10^3/uL (2.0-7.7); Basophil# 0.05 X10^3/uL; Basophil% 0.5 % (0-1); Eosinophil# 0.31 X10^3/uL; Eosinophils% 3.4 % (0-5); Hematocrit 43.1 % (40-54); Hemoglobin 14.2 g/dL (13.0-16.5); Lymphocyte # 2.96 X10^3/ul (0.83-4.51); Lymphocyte % 32.1 % (19-41); Mean Corp Hgb Conc 32.9 g/dL (32-36); Mean Corpuscular Hgb 30.4 pg (27.0-32.0); Mean Corpuscular Volume 92.3 fL (80-94); Monocyte# 0.64 X10^3/uL; Monocyte% 6.9 % (0-10); NRBC Flagged by Analyzer 0 % (0-5); Neutrophil # 5.21 X10^3/uL (2.7-7.7); Neutrophil % 56.7 % (47-70); Platelet Count 225 K/mm3 (150-450); RBC Distribution Width CV 12.4 % (11.6-14.6); RBC Distribution Width SD 41.7 fl (35.1-43.9); Red Blood Count 4.67 M/mm3 (4.6-6.2); White Blood Count 9.2 K/mm3 (4.4-11.0)
[2024-10-29 11:24] LABS: ALB/GLOB Ratio 1.5 RATIO (0.9-2.4); AST(SGOT) 20 U/L (<=37); Alanine Aminotransfer ALT/SGPT 17 U/L (<=46); Albumin, Serum 4.2 g/dL (3.5-5.0); Alkaline Phosphatase 104 U/L (40-129); Anion Gap 12 (5-15); BUN 11 mg/dL (4-19); BUN/Creat Ratio 13.2 RATIO (10-20); Calcium 9.3 mg/dL (7.6-11.0); Carbon Dioxide 25.1 mmol/L (22.0-29.0); Chloride 104 mmol/L (96-108); Creatinine, Serum 0.81 mg/dL (0.70-1.20); EST Glomerular Filtration Rate 120 (>60); Globulin 2.9 g/dL (2.2-4.2); Glucose 80 mg/dL (70-99); Hepatitis C Antibody REAC (Nonreactive); Iron 59 ug/dL (65-175); Potassium 4.1 mmol/L (3.3-5.1); Protein, Total 7.1 g/dL (5.9-8.4); Sodium Level 141 mmol/L (133-145)
[2024-10-29 12:44] LABS: Vitamin B12 909 pg/mL (180-914); Vitamin D,25 Hydroxy < 6.0 ng/mL (30-100)
[2024-11-03 23:07] LABS: HCV Quant. RNA PCR HCV Not Detected IU/mL (.)
== END | disposition home or self-care (01) ==
PROVIDERS: PCP Family Medicine; Referring Provider Family Medicine; Visit Provider Family Medicine
DX: R76.8 Other specified abnormal immunological findings in serum (principal); F11.20 Opioid dependence, uncomplicated; R19.7 Diarrhea, unspecified; R53.83 Other fatigue; K21.9 Gastro-esophageal reflux disease without esophagitis
CPT/HCPCS: 36415; 80053; 82306; 82607; 83540; 84403; 84443; 85025; 85652; 86803; 87522